=== PATIENT | male | born 1955 | race Caucasian/White ===

== ENCOUNTER 2018-05-07 06:27 | Day surgery (SDC) | payer OTHER ==
[~2018-05-07] VITALS: Ht 175.3 cm; Wt 81.6 kg
[~2018-05-07 06:27] MED LIST: ASPI-630 PO; BUPIVAC MPF-EPI 0.5%-1:200000 30 ML VIAL. ONE; DOCU-109 PO; LISI10TA2 PO; TAMS0.4C97 PO
[2018-05-07] MEDS ORDERED: IV RINGERS,LACTATED 1000ML 1,000 ML IV SCH (07:00)
[2018-05-07] MEDS ORDERED: DESFLURANE 61 TO 120 MINUTES IH ONE (07:58)
[2018-05-07] MEDS ORDERED: ROCURONIUM 50 MG/5 ML VIAL. ONE (07:58)
[2018-05-07] MEDS ORDERED: fentaNYL PF VIAL 100 MCG/2 ML VIAL ONE (07:58)
[2018-05-07] MEDS ORDERED: PROPOFOL 20 ML IV ONE ×2 (08:02→09:28)
[2018-05-07] MEDS ORDERED: ONDANSETRON PF 4 MG/2 ML VIAL. ONE ×2 (08:02→08:07)
[2018-05-07] MEDS ORDERED: DEXAMETHASONE SOD PHOS 20 MG/5 ML VIAL. ONE (08:02)
[2018-05-07] MEDS ORDERED: KETOROLAC 30 MG/ML INJ FOR OR. INJ ONE (08:20)
[2018-05-07] MEDS ORDERED: NEOSTIGMINE METHYLSULFATE 5 MG/5 ML SYRINGE. ONE (08:35)
[2018-05-07] MEDS ORDERED: GLYCOPYRROLATE 1 MG/5 ML VIAL. ONE (08:35)
[2018-05-07] MEDS ORDERED: LIDOCAINE 1% PF 5 ML VIAL. ONE (09:33)
--- NOTE | 2018-05-07 09:36 | PDOC4 ---
Operative Note Operative Note Date: 05/07/2018 Preoperative diagnosis: Left inguinal hernia possible right Postoperative diagnosis: Bilateral inguinal hernias Procedure: Robotic-assisted laparoscopic bilateral inguinal hernia repair with mesh Surgeon: Evelio Specimen: None Dictation: Patient is a 62-year-old male is complained of a bulge on the left side on exam there was some concern for right side hernia also he does describe some pain bilaterally procedure of robotic-assisted laparoscopic inguinal hernia repair with mesh was explained to the patient detail was benefits were also discussed including bleeding infection injury to intra-abdominal contents possibly necessitating further or open operations alternatives to this procedure also discussed with patient who seemed understanding gave both verbal and written consent had procedure performed. Patient was taken to the operating room placed in supine position general anesthesia was initiated once patient was asleep and intubated is placed in low lithotomy positioning and his abdomen was prepped and draped usual sterile fashion using ChloraPrep and area just above the umbilicus was injected with quarter percent Marcaine with epinephrine incision was made lead blade scalpel varies needle was placed within the abdomen creating pneumoperitoneum once this complete 8 mm da Zi port was placed and a da Zi camera was placed within the abdomen which was inspected was noted that there was a left inguinal hernia as well as a right inguinal hernia. 2 more da Zi ports were placed one in the left mid abdomen and one in the right mid abdomen under direct visualization the da Zi robot was brought in and docked all ports and the surgeon went to the robotic console. Using grasper and Endo Elza scissors the peritoneum was opened on the left side a window was propagated and the hernia contents were reduced along with the sac. A 3-D max Bard mesh for the left inguinal hernia was placed over the hernia defect and the peritoneum was then closed over the mesh with a running 20V lock suture. Similarly on the right side the perineum was opened and reduced along with the hernia contents a Bard 3-D max mesh for the right side was placed and the peritoneum was again closed with 20V lock running suture. At the completion the pneumoperitoneum was reduced all ports removed the fascial defect at the umbilicus closed [id number] 0 Vicryl suture and the skin was approximate all port sites 4 septic Monocryl mass all Steri-Strips and Band- Aids were applied as dressings. Patient was waken expanded in the operative room taken to recovery in stable condition all sponge instrument needle counts listed as correct estimated blood loss 5 mL ROBIN LAU MD May 07, 2018 09:36
--- NOTE | 2018-05-07 09:37 | DISCH ---
DISCHARGE INSTRUCTIONS Condition on Discharge Condition on Discharge: Stable Activity After Discharge Activity Instructions for Disc: Avoid exertion Other activity instructions: no lifting more than 20 pounds for 2 weeks Diet after Discharge Diet after Discharge: Regular Wound Incision Care Other wound/incision instructi: May shower in 24 hours removed top dressing at that time Contacting the DRNikki after DC Call your doctor for: If your condition worsens Follow-Up Follow up with: Dr. Lau in 2 weeks ROBIN LAU MD May 07, 2018 09:36
[2018-05-07] MEDS ORDERED: HYDR-971 PO (09:39)
[2018-05-07] MEDS ORDERED: HYDROcodone/APAP 5/325MG 1 TAB TABLET PO ONE (10:30)
[2018-05-07 10:44] VITALS: BP 140/73
== END 2018-05-07 11:01 | disposition home or self-care (01) ==
LOC: SURG 06:27 → EEVIPCON 08:30 → SURG 11:01
PROVIDERS: ATTEND Surgery
DX: K40.20 Bilateral inguinal hernia, without obstruction or gangrene, not specified as recurrent (principal); E78.00 Pure hypercholesterolemia, unspecified; I10 Essential (primary) hypertension; Z79.899 Other long term (current) drug therapy
CPT/HCPCS: 49650; A7015; C1781; J0690; J1100; J1885; J2405; J2704; J2710; J3010; J3490; J7120

== ENCOUNTER 2018-05-25 23:12 | Inpatient (IN) | payer OTHER ==
[~2018-05-25] VITALS: Ht 172.7 cm; Wt 80.3 kg
[~2018-05-25 23:12] MED LIST changes: -BUPIVAC MPF-EPI 0.5%-1:200000 30 ML VIAL. ONE; +HYDR-971 PO
--- NOTE | 2018-05-25 23:28 | PHYS DOC ---
Past Medical History Past Medical History Some personality disorder Adult General Chief Complaint Chief Complaint: ALTERED MENTAL STATUS HPI HPI Patient is a 62 year old inmate arriving to the ED via EMS due to unresponsiveness. He was reported to be fine 1 minute but then became unconscious the next which prompted an EKG to be taken. The rotation red lateral infarct, and a heart attack was suspected by the team which prompted the EMS call. EMS reports that the EKG did not show any ST elevation, however. EMS reports that the patient was able to squeeze with hands, and say a few words. This also reports that the patient has some sort of personality disorder , but the specific diagnosis is unknown at this time. Review of Systems Review of Systems Constitutional: Denies fever or chills [] Eyes: Denies change in visual acuity, redness, or eye pain [] HENT: Denies nasal congestion or sore throat [] Respiratory: Denies cough or shortness of breath [] Cardiovascular: No additional information not addressed in HPI [] GI: Denies abdominal pain, nausea, vomiting, bloody stools or diarrhea [] : Denies dysuria or hematuria [] Musculoskeletal: Denies back pain or joint pain [] Integument: Denies rash or skin lesions [] Neurologic: Denies headache, focal weakness or sensory changes [] Endocrine: Denies polyuria or polydipsia [] Complete systems were reviewed and found to be within normal limits, except as documented in this note. Current Medications Current Medications Allergies Allergies Allergies Coded Allergies Type Severity Reaction Last Updated Verified No Known Drug Allergies 05/07/18 No Physical Exam Physical Exam Constitutional: Well developed, well nourished, no acute distress, non-toxic appearance. [] HENT: Normocephalic, atraumatic, bilateral external ears normal, oropharynx moist, no oral exudates, nose normal. [] Eyes: PERRLA, EOMI, conjunctiva normal, no discharge. [] Neck: Normal range of motion, no tenderness, supple, no stridor. [] Cardiovascular:Heart rate regular rhythm, no murmur [] Lungs & Thorax: Bilateral breath sounds clear to auscultation [] Abdomen: Bowel sounds normal, soft, no tenderness, no masses, no pulsatile masses. [] Skin: Warm, dry, no erythema, no rash. [] Back: No tenderness, no CVA tenderness. [] Extremities: No tenderness, no cyanosis, no clubbing, ROM intact, no edema. [] Neurologic: Alert and oriented X 3, normal motor function, normal sensory function, no focal deficits noted. [] Psychologic: Affect normal, judgement normal, mood normal. [] Current Patient Data Vital Signs Vital Signs Date Time Temp Pulse Resp B/P (MAP) Pulse Ox O2 Delivery O2 Flow Rate FiO2 05/25/18 23:12 98.7 82 22 178/85 (116) 98 Room Air 98.7 Lab Values Laboratory Tests Test 05/25/18 23:25 White Blood Count 9.9 x10^3/uL (4.0-11.0) Red Blood Count 4.04 x10^6/uL (4.30-5.70) L Hemoglobin 12.9 g/dL (13.0-17.5) L Hematocrit 36.5 % (39.0-53.0) L Mean Corpuscular Volume 90 fL (79-100) Mean Corpuscular Hemoglobin 32 pg (25-35) Mean Corpuscular Hemoglobin Concent 35 g/dL (31-37) Red Cell Distribution Width 13.0 % (11.5-14.5) Platelet Count 236 x10^3/uL (140-400) Neutrophils (%) (Auto) 86 % (31-73) H Lymphocytes (%) (Auto) 9 % (24-48) L Monocytes (%) (Auto) 5 % (0-9) Eosinophils (%) (Auto) 0 % (0-3) Basophils (%) (Auto) 0 % (0-3) Neutrophils # (Auto) 8.5 x10^3uL (1.8-7.7) H Lymphocytes # (Auto) 0.9 x10^3/uL (1.0-4.8) L Monocytes # (Auto) 0.5 x10^3/uL (0.0-1.1) Eosinophils # (Auto) 0.0 x10^3/uL (0.0-0.7) Basophils # (Auto) 0.0 x10^3/uL (0.0-0.2) Segmented Neutrophils % 84 % (35-66) H Lymphocytes % 11 % (24-48) L Monocytes % 5 % (0-10) Platelet Estimate Adequate (ADEQUATE) Prothrombin Time 14.1 SEC (11.7-14.0) H Prothrombin Time INR 1.1 (0.8-1.1) PTT 30 SEC (24-38) Sodium Level 138 mmol/L (136-145) Potassium Level 4.1 mmol/L (3.5-5.1) Chloride Level 102 mmol/L (98-107) Carbon Dioxide Level 26 mmol/L (21-32) Anion Gap 10 (6-14) Blood Urea Nitrogen 20 mg/dL (8-26) Creatinine 1.0 mg/dL (0.7-1.3) Estimated GFR (Cockcroft-Gault) 75.7 BUN/Creatinine Ratio 20 (6-20) Glucose Level 145 mg/dL (70-99) H Lactic Acid Level 1.8 mmol/L (0.4-2.0) Calcium Level 9.1 mg/dL (8.5-10.1) Magnesium Level 1.6 mg/dL (1.8-2.4) L Total Bilirubin 0.7 mg/dL (0.2-1.0) Aspartate Amino Transferase (AST) 11 U/L (15-37) L Alanine Aminotransferase (ALT) 19 U/L (16-63) Alkaline Phosphatase 83 U/L (46-116) Ammonia 22 mcmol/L (11-34) Creatine Kinase 76 U/L (39-308) Creatine Kinase MB (Mass) 0.9 ng/mL (0.0-3.6) Creatine Kinase MB Relative Index 1.2 % (0-4) Troponin I Quantitative < 0.017 ng/mL (0.000-0.055) Total Protein 7.1 g/dL (6.4-8.2) Albumin 3.6 g/dL (3.4-5.0) Albumin/Globulin Ratio 1.0 (1.0-1.7) Ethyl Alcohol Level < 10 mg/dL (0-10) Laboratory Tests 05/25/18 23:25 Laboratory Tests 05/25/18 23:25 EKG EKG [] Radiology/Procedures Radiology/Procedures [] Course & Med Decision Making Course & Med Decision Making 2024: 62-year-old patient arriving from [facility] by EMS to unresponsiveness from the emergency clinic of [facility]. Patient noted to have altered mental status. Blood work drawn, EKG, and head CT ordered. EKG was unremarkable. 2331: CT revealed acute right frontotemporal subdural hematoma causing midline shift. Patient still altered. Decision to intubate with RSI was made. Intubation completed successfully without complications. 0055: Dr. Grady contacted for neurosurgery. Atilio Disclaimer Dragon Disclaimer This electronic medical record was generated, in whole or in part, using a voice recognition dictation system. Intubation Intubation : Intubation Method: orotracheal Tube Size (cm): 8.0 Breath Sounds after Intubation: equal Intubation Complications: no complications Post Intubation Xray: Yes Progress Etomidate 20mg, Rocuronium 50mg, direct laryngoscopy performed with Katz #3 by the ED physician under emergent consent. Hand hygiene utilized. 8.0 ET tube placed 20cm at teeth, positive CO2 color change at all breath sounds auscultated. CXR confirmed appropriate placement. Departure Departure Impression: Primary Impression: Subdural hematoma, acute Disposition: ADMITTED INPATIENT Admitting Physician: George Thorpe Condition: CRITICAL Referrals: NON,STAFF (PCP) NIHSS Stroke Scale NIH Stroke Scale: NIH Stroke Scale Response (Comments) Value Level of Consciousness: 2 Requires stimulation 2 LOC Questions: 2 Answers neither correct 2 LOC Commands: 1 Performs one task 1 Best Gaze: 0 Normal 0 Visual: 0 No visual loss 0 Facial Palsy: 0 Normal, symmetrical 0 Motor - Left Arm 1 Drifts, but can hold 1 Motor - Right Arm 3 Limb falls 3 Motor - Left Leg 3 Limb falls 3 Motor: Right Leg 3 Limb falls 3 Best Language: 3 Mute 3 Dysathria: 3 Intubated 0 Total 18 Critical Care Time Critical care time was 30 minutes which includes time at bedside, spent in discussion of patient's care with specialists and/or family members, with interpretation of laboratory and/or radiological studies and is exclusive of procedures. NIKKI QUACH DO May 25, 2018 23:28
[2018-05-25 23:54] LABS: BASO % 0 % (0-3); EOS % 0 % (0-3); HEMATOCRIT 36.5 % (39.0-53.0); HEMOGLOBIN 12.9 g/dL (13.0-17.5); LYMPH # 0.9 x10^3/uL (1.0-4.8); LYMPH % 9 % (24-48); MEAN CORPUSCULAR HEMOGLOBIN 32 pg (25-35); MEAN CORPUSCULAR HGB CONC 35 g/dL (31-37); MEAN CORPUSCULAR VOLUME 90 fL (79-100); MONO # 0.5 x10^3/uL (0.0-1.1); MONO % 5 % (0-9); NEUT # 8.5 x10^3uL (1.8-7.7); NEUT % 86 % (31-73); PLATELET COUNT 236 x10^3/uL (140-400); RED BLOOD COUNT 4.04 x10^6/uL (4.30-5.70); WHITE BLOOD COUNT 9.9 x10^3/uL (4.0-11.0)
[2018-05-25 23:56] LABS: PROTHROMBIN TIME PATIENT 14.1 SEC (11.7-14.0)
[2018-05-25 23:58] LABS: CALCIUM 9.1 mg/dL (8.5-10.1); GFR 75.7; POTASSIUM 4.1 mmol/L (3.5-5.1)
[2018-05-26] VITALS (22 sets, daily range): BP systolic 97–172; BP diastolic 50–80
[2018-05-26 00:03] LABS: ALBUMIN 3.6 g/dL (3.4-5.0); MAGNESIUM 1.6 mg/dL (1.8-2.4); TOTAL BILIRUBIN 0.7 mg/dL (0.2-1.0); TOTAL PROTEIN 7.1 g/dL (6.4-8.2)
[2018-05-26] MEDS ORDERED: BUPIVAC MPF-EPI 0.5%-1:200000 30 ML VIAL. ONE (00:13)
[2018-05-26] MEDS ORDERED: SURGICEL HEMOSTAT 4X8 EACH. ONE (00:13)
[2018-05-26] MEDS ORDERED: GELATIN SPONGE SIZE 100. ONE (00:13)
[2018-05-26] MEDS ORDERED: MANNITOL 25% 12.5 G/50 ML VIAL FOR OR. ONE ×2 (00:13→00:20)
[2018-05-26] MEDS ORDERED: THROMBIN TOPICAL 20,000 UNIT SPRAY.SYRN KIT TP ONE (00:14)
--- NOTE | 2018-05-26 00:15 | RAD ---
CT head without contrast HISTORY: Altered mental status, found unresponsive Axial images of the head were obtained without contrast FINDINGS: There is a moderate size acute subdural hematoma on the right lateral to the temporal and frontal lobes. It measures as great as 1.6 centers in thickness and results in significant 1.5 cm right to left midline shift. There is no hydrocephalus. There is no hypoattenuation to suggest acute ischemia. There is opacification of the left maxillary sinus and fluid in the right maxillary sinus and left ethmoid air cells and sphenoid sinus. There is motion artifact. IMPRESSION: 1. Acute right-sided subdural hematoma with [id number] midline shift. 2. Moderate sinus disease. These results were called to Dr. QUACH and verified by read back at the time of dictation. Electronically signed by: Guero Gadruno III, MD (05/26/2018 12:13 AM) [facility]
[2018-05-26] MEDS ORDERED: ATOR40TA59 PO (00:20)
[2018-05-26] MEDS ORDERED: PROPOFOL 50 ML IV ONE (00:27)
[2018-05-26] MEDS ORDERED: ETOMIDATE 20 MG/10 ML VIAL. IV ONE (00:30)
[2018-05-26] MEDS ORDERED: ROCURONIUM 50 MG/5 ML VIAL. IV ONE (00:30)
[2018-05-26] MEDS: PROPOFOL 100 ML IV PRN ×3 (00:30→19:30)
[2018-05-26] MEDS ORDERED: LABETALOL 20 MG/4 ML DISP.SYRIN. IVP ONE ×5 (00:30→03:11)
[2018-05-26 00:40] LABS: BILIRUBIN,URINE NEGATIVE (NEG); CLARITY,URINE CLEAR; COLOR,URINE YELLOW; NITRITE,URINE NEGATIVE (NEG); PH,URINE 6.5; PROTEIN,URINE NEGATIVE (NEG-TRACE); UROBILINOGEN,URINE 0.2 mg/dL (0.2 mg/dL)
[2018-05-26 00:46] LABS: BARBITURATES NEG (NEG); BENZODIAZEPINES NEG (NEG); CANNABINOIDS NEG (NEG); COCAINE NEG (NEG); METHADONE NEG (NEG); OPIATES NEG (NEG); PHENCYCLIDINE NEG (NEG)
[2018-05-26 00:53] LABS: BACTERIA,URINE 0 /HPF (0-FEW); RBC,URINE 0 /HPF (0-2); SQUAMOUS EPITHELIAL CELL,UR OCC /LPF; WBC,URINE OCC /HPF (0-4)
[2018-05-26 00:54] LABS: AMPHETAMINE/METHAMPHETAMINE NEG (NEG)
[2018-05-26 01:09] LABS: % LYMPHS 11 % (24-48); % MONOS 5 % (0-10); % SEGS 84 % (35-66)
[2018-05-26 01:10] LABS: PLT ESTIMATE ADEQUATE (ADEQUATE)
--- NOTE | 2018-05-26 01:10 | RAD ---
CT C-Spine without contrast: Clinical History: SUBDURAL HEMORRHAGE Technique: Axial helical images of the cervical spine were obtained without contrast, axial coronal and sagittal reconstruction was performed. Findings: There is no loss of vertebral body stature. There is no prevertebral soft tissue swelling. The vertebral bodies are well aligned. The head is turned to the right. Otherwise the C1-C2 relationship is normal. The visualized osseous structures appear normal. Evaluation of the central canal is limited without contrast. There is multiple posterior disc bulges resulting in flattening of the thecal sac. There does not appear to be gross flattening of the cervical cord. There is moderate narrowing of multiple neuroforamen. Impression: No acute findings. Clinical correlation suggested. PQRS Compliance Statement: One or more of the following individualized dose reduction techniques were utilized for this examination: 1. Automated exposure control 2. Adjustment of the mA and/or kV according to patient size 3. Use of iterative reconstruction technique Electronically signed by: Guero Garduno III, MD (05/26/2018 1:07 AM) [facility]
[2018-05-26] MEDS ORDERED: ROCURONIUM 50 MG/5 ML VIAL. ONE ×2 (01:16→01:58)
[2018-05-26] MEDS ORDERED: fentaNYL PF VIAL 100 MCG/2 ML VIAL ONE ×2 (01:17→03:13)
[2018-05-26] MEDS ORDERED: SEVOFLURANE 61 TO 120 MINUTES. IH ONE (01:58)
[2018-05-26] MEDS ORDERED: BACITRACIN 50,000 UNIT in IV NORMAL SALINE 1000ML BAG 1,000 ML IRR ONE (02:00)
[2018-05-26] MEDS ORDERED: ceFAZolin SODIUM 1 GM VIAL ONE ×2 (02:01)
[2018-05-26] MEDS ORDERED: DEXAMETHASONE SOD PHOS 20 MG/5 ML VIAL. ONE (03:11)
[2018-05-26] MEDS ORDERED: ONDANSETRON PF 4 MG/2 ML VIAL. ONE (03:11)
[2018-05-26 03:53] LABS: BASE EXCESS COOX 0 mmol/L (-3-3); HCO3 COOX 23 mmol/L (21-28); METHEMOGLOBIN 0.3 % (0.0-1.9); OXYHEMOGLOBIN 98.5 %; PCO2 COOX 31 mmHg (35-46); PO2 COOX 491 mmHg (65-108); SAT O2 COOX 99 % (92-99)
--- NOTE | 2018-05-26 04:45 | OP ---
DATE OF SURGERY: 05/26/2018 PREOPERATIVE DIAGNOSIS: Right frontotemporal parietal subacute subdural hematoma with right to left shift and deteriorating level of consciousness. POSTOPERATIVE DIAGNOSIS: Right frontotemporal parietal subacute subdural hematoma with right to left shift and deteriorating level of consciousness. OPERATION PERFORMED: Emergent right central craniotomy with evacuation of subdural hematoma and placement of subdural drain. SURGEON:Elmer Cummings M.D. OBSTETRICS TECHNICIAN: The operation was done with the assistance of CLAUDIA Tolentino who assisted with the exposure, the removal of subdural as well as the placement of drain and closure. OPERATIVE INDICATIONS: The patient is a 62-year-old man who was found unconscious in the Emergency Room. He was initially saying a few words per the physician and nurse, but then rapidly deteriorated and required intubation. On a CT scan of the head, there was a large right frontotemporal parietal subdural hematoma with a significant right to left shift and I recommended emergent craniotomy with evacuation. DESCRIPTION OF PROCEDURE: Following general endotracheal anesthesia, the patient was positioned on the operating room table with a roll beneath his right shoulder. His head was turned to the left bringing the right frontoparietal region uppermost. He was clipped, prepped and draped in standard fashion. WILLIE hose and AV impulse boots were applied for DVT prophylaxis. Ancef 2 g was given less than 1 hour prior to initiation of the surgery. A linear incision was made extending anterior and superior to the ear and extending toward the vertex. The Kary clips were used along the skin edge and the temporalis muscle and fascia were incised as well as periosteum, which were reflected and self-retaining retractor was placed. Two una holes were placed and the craniotome was then used to develop a flap, which was removed from the field. The dura was opened in a cruciate fashion. There was a spontaneous regression of dark viscous subdural fluid. There were a couple of clots, which I teased back and removed and beneath one of them, there was an active hemorrhaging and I did coagulate this is focal area judiciously with the Bovie. I irrigated copiously with warm saline and as I worked, the effluent became clearer and cleared and the brain rapidly moved back from a significantly shifted and depressed position back to virtually in contact with the underlying dura. Following this, I closed the dura with interrupted 4-0 Nurolon. The bone flap was modified to accommodate a drain, which was placed and brought through a separate stab incision. During this time, the flap was replaced and secured with microplates and the wound was copiously irrigated. I did refill the subdural space with saline as I worked. I then closed the temporalis fascia and muscle followed by the galea and subcutaneous tissue followed by the skin closed with skin jessica. The patient was kept intubated and taken to the Intensive Care Unit in stable condition with the surgery went quite well. ELMER CUMMINGS MD DR: SENDY/marina JOB#: [id number] / [id number] TORI
[2018-05-26 06:50] LABS: HEMATOCRIT 35.8 % (39.0-53.0); HEMOGLOBIN 12.8 g/dL (13.0-17.5); RED BLOOD COUNT 3.96 x10^6/uL (4.30-5.70); RED CELL DISTRIBUTION WIDTH 12.8 % (11.5-14.5); WHITE BLOOD COUNT 8.1 x10^3/uL (4.0-11.0)
[2018-05-26 07:03] LABS: ALBUMIN 3.2 g/dL (3.4-5.0); ALBUMIN/GLOBULIN RATIO 0.9 (1.0-1.7); GFR 75.7; MAGNESIUM 1.8 mg/dL (1.8-2.4); POTASSIUM 3.8 mmol/L (3.5-5.1); TOTAL BILIRUBIN 0.6 mg/dL (0.2-1.0); TOTAL PROTEIN 6.6 g/dL (6.4-8.2)
--- NOTE | 2018-05-26 07:18 | EKG ---
[facility] [address] [place] [address] Test Date: 2018-05-25 Test Time: 23:19:17 Pat Name: ANA MARÍA LAW Department: Room: 111 1 Gender: M Rehab Technician: : 1955 Requested By: NIKKI QUACH Order Number: [id number] Reading MD: Louie Ceballos Measurements Intervals [place] Rate: 68 P: 40 [place]: 156 QRS: 51 QRSD: 76 T: 34 QT: 364 QTc: 387 Interpretive Statements SINUS RHYTHM NORMAL ECG RI6.01 No previous ECG available for comparison Electronically Signed On 05-29-2018 10:15:35 CDT by Louie Ceballos
--- NOTE | 2018-05-26 07:29 | EKG ---
[facility] [address] [place] [address] Test Date: 2018-05-25 Test Time: 23:17:24 Pat Name: ANA MARÍA LAW Department: Room: 111 1 Gender: M Editorial Director: : 1955 Requested By: NIKKI QUACH Order Number: [id number] Reading MD: Louie Ceballos Measurements Intervals [place] Rate: 69 P: 39 [place]: 152 QRS: 64 QRSD: 74 T: 46 QT: 356 QTc: 383 Interpretive Statements SINUS RHYTHM NO SPECIFIC ECG ABNORMALITIES RI6.01 No previous ECG available for comparison Electronically Signed On 05-29-2018 10:15:30 CDT by Louie Ceballos
--- NOTE | 2018-05-26 07:40 | RAD ---
PROCEDURE: PORTABLE CHEST 1V CLINICAL INDICATION: altered mental status COMPARISON: None FINDINGS: No pneumothorax identified. Cardiac and mediastinal contours unremarkable. No pulmonary consolidation or acute airspace disease. No acute osseous abnormalities identified. IMPRESSION: No pulmonary consolidation or acute airspace disease. Electronically signed by: Dakota Longoria DO (05/26/2018 7:37 AM) [facility]
--- NOTE | 2018-05-26 07:42 | RAD ---
PROCEDURE: CHEST AP ONLY CLINICAL INDICATION: POST INTUBATION COMPARISON: 05/25/2018 FINDINGS: Interval placement of ET tube with its tip approximately 7 cm above the level of lorin and is in optimal position. No pneumothorax identified. Cardiac and mediastinal contours unremarkable. No pulmonary consolidation or acute airspace disease. No acute osseous abnormalities identified. IMPRESSION: No pulmonary consolidation or acute airspace disease. Electronically signed by: Dakota Longoria DO (05/26/2018 7:39 AM) [facility]
[2018-05-26 07:54] LABS: BASE EXCESS ABG 1 mmol/L (-3-3); HCO3 ABG 22 mmol/L (21-28); PO2 ABG 108 mmHg (65-108); SAT O2 ABG 98 % (92-99)
[2018-05-26] MEDS: CHLORHEXIDINE 0.12% 15 ML MOUTHWASH. MM SCH ×2 (08:43→21:00)
[2018-05-26] MEDS ORDERED: IV RINGERS,LACTATED 1000ML 1,000 ML IV SCH (10:00)
--- NOTE | 2018-05-26 10:50 | PDOC ---
PROGRESS NOTES Subjective Subjective sedated on vent Objective Objective Vital Signs Date Time Temp Pulse Resp B/P (MAP) Pulse Ox O2 Delivery O2 Flow Rate FiO2 05/26/18 10:01 68 20 122/51 (74) 100 Ventilator 05/26/18 07:00 98.9 98.9 Intake and Output 05/26/18 07:00 Output Total 2375 ml Balance -2375 ml Output Urine Total 2350 ml Drainage Total 25 ml Physical Exam General: No acute distress, Other (sedated) Skin: Other (dressing C,D,I. drain in place) Assessment Assessment Problems Medical Problems: (1) Subdural hematoma, acute Status: Acute Plan Plan of Care s/p evacuation of SDH work towards extubation per Dr. Gallardo SCDS d/w RN and Dr. Thorpe Comment Review of Relevant I have reviewed the following items cesar (where applicable) has been applied. Labs Laboratory Tests Test 05/25/18 23:25 05/26/18 00:32 05/26/18 03:52 05/26/18 06:15 White Blood Count 9.9 x10^3/uL (4.0-11.0) 8.1 x10^3/uL (4.0-11.0) Red Blood Count 4.04 x10^6/uL (4.30-5.70) 3.96 x10^6/uL (4.30-5.70) Hemoglobin 12.9 g/dL (13.0-17.5) 12.8 g/dL (13.0-17.5) Hematocrit 36.5 % (39.0-53.0) 35.8 % (39.0-53.0) Mean Corpuscular Volume 90 fL (79-100) 90 fL (79-100) Mean Corpuscular Hemoglobin 32 pg (25-35) 32 pg (25-35) Mean Corpuscular Hemoglobin Concent 35 g/dL (31-37) 36 g/dL (31-37) Red Cell Distribution Width 13.0 % (11.5-14.5) 12.8 % (11.5-14.5) Platelet Count 236 x10^3/uL (140-400) 211 x10^3/uL (140-400) Neutrophils (%) (Auto) 86 % (31-73) Lymphocytes (%) (Auto) 9 % (24-48) Monocytes (%) (Auto) 5 % (0-9) Eosinophils (%) (Auto) 0 % (0-3) Basophils (%) (Auto) 0 % (0-3) Neutrophils # (Auto) 8.5 x10^3uL (1.8-7.7) Lymphocytes # (Auto) 0.9 x10^3/uL (1.0-4.8) Monocytes # (Auto) 0.5 x10^3/uL (0.0-1.1) Eosinophils # (Auto) 0.0 x10^3/uL (0.0-0.7) Basophils # (Auto) 0.0 x10^3/uL (0.0-0.2) Segmented Neutrophils % 84 % (35-66) Lymphocytes % 11 % (24-48) Monocytes % 5 % (0-10) Platelet Estimate Adequate (ADEQUATE) Prothrombin Time 14.1 SEC (11.7-14.0) Prothromb Time International Ratio 1.1 (0.8-1.1) Activated Partial Thromboplast Time 30 SEC (24-38) Sodium Level 138 mmol/L (136-145) 137 mmol/L (136-145) Potassium Level 4.1 mmol/L (3.5-5.1) 3.8 mmol/L (3.5-5.1) Chloride Level 102 mmol/L (98-107) 104 mmol/L (98-107) Carbon Dioxide Level 26 mmol/L (21-32) 22 mmol/L (21-32) Anion Gap 10 (6-14) 11 (6-14) Blood Urea Nitrogen 20 mg/dL (8-26) 18 mg/dL (8-26) Creatinine 1.0 mg/dL (0.7-1.3) 1.0 mg/dL (0.7-1.3) Estimated GFR (Cockcroft-Gault) 75.7 75.7 BUN/Creatinine Ratio 20 (6-20) 18 (6-20) Glucose Level 145 mg/dL (70-99) 154 mg/dL (70-99) Lactic Acid Level 1.8 mmol/L (0.4-2.0) Calcium Level 9.1 mg/dL (8.5-10.1) 9.0 mg/dL (8.5-10.1) Magnesium Level 1.6 mg/dL (1.8-2.4) 1.8 mg/dL (1.8-2.4) Total Bilirubin 0.7 mg/dL (0.2-1.0) 0.6 mg/dL (0.2-1.0) Aspartate Amino Transf (AST/SGOT) 11 U/L (15-37) 14 U/L (15-37) Alanine Aminotransferase (ALT/SGPT) 19 U/L (16-63) 15 U/L (16-63) Alkaline Phosphatase 83 U/L (46-116) 72 U/L (46-116) Ammonia 22 mcmol/L (11-34) Creatine Kinase 76 U/L (39-308) Creatine Kinase MB (Mass) 0.9 ng/mL (0.0-3.6) Creatine Kinase MB Relative Index 1.2 % (0-4) Troponin I Quantitative < 0.017 ng/mL (0.000-0.055) Total Protein 7.1 g/dL (6.4-8.2) 6.6 g/dL (6.4-8.2) Albumin 3.6 g/dL (3.4-5.0) 3.2 g/dL (3.4-5.0) Albumin/Globulin Ratio 1.0 (1.0-1.7) 0.9 (1.0-1.7) Ethyl Alcohol Level < 10 mg/dL (0-10) Urine Collection Type U cath Urine Color Yellow Urine Clarity Clear Urine pH 6.5 Urine Specific [place] 1.025 Urine Protein Negative mg/dL (NEG-TRACE) Urine Glucose (UA) Negative mg/dL (NEG) Urine Ketones (Stick) 15 mg/dL (NEG) Urine Blood Negative (NEG) Urine Nitrite Negative (NEG) Urine Bilirubin Negative (NEG) Urine Urobilinogen Dipstick 0.2 mg/dL (0.2 mg/dL) Urine Leukocyte Esterase Negative (NEG) Urine RBC 0 /HPF (0-2) Urine WBC Occ /HPF (0-4) Urine Squamous Epithelial Cells Occ /LPF Urine Bacteria 0 /HPF (0-FEW) Urine Mucus Slight /LPF Urine Opiates Screen Neg (NEG) Urine Methadone Screen Neg (NEG) Urine Barbiturates Neg (NEG) Urine Phencyclidine Screen Neg (NEG) Urine Amphetamine/Methamphetamine Neg (NEG) Urine Benzodiazepines Screen Neg (NEG) Urine Cocaine Screen Neg (NEG) Urine Cannabinoids Screen Neg (NEG) Urine Ethyl Alcohol Neg (NEG) O2 Saturation 99 % (92-99) Arterial Blood pH 7.49 (7.35-7.45) Arterial Blood pCO2 at Patient Temp 31 mmHg (35-46) Arterial Blood pO2 at Patient Temp 491 mmHg (65-108) Arterial Blood HCO3 23 mmol/L (21-28) Arterial Blood Base Excess 0 mmol/L (-3-3) Oxyhemoglobin 98.5 % Methemoglobin 0.3 % (0.0-1.9) Carbon Monoxide, Quantitative 0.3 % (0.0-1.9) FiO2 100 Test 05/26/18 06:23 Glucose (Fingerstick) 155 mg/dL (70-99) Laboratory Tests Test 05/25/18 23:25 05/26/18 00:32 05/26/18 03:52 05/26/18 06:15 White Blood Count 9.9 x10^3/uL (4.0-11.0) 8.1 x10^3/uL (4.0-11.0) Red Blood Count 4.04 x10^6/uL (4.30-5.70) 3.96 x10^6/uL (4.30-5.70) Hemoglobin 12.9 g/dL (13.0-17.5) 12.8 g/dL (13.0-17.5) Hematocrit 36.5 % (39.0-53.0) 35.8 % (39.0-53.0) Mean Corpuscular Volume 90 fL (79-100) 90 fL (79-100) Mean Corpuscular Hemoglobin 32 pg (25-35) 32 pg (25-35) Mean Corpuscular Hemoglobin Concent 35 g/dL (31-37) 36 g/dL (31-37) Red Cell Distribution Width 13.0 % (11.5-14.5) 12.8 % (11.5-14.5) Platelet Count 236 x10^3/uL (140-400) 211 x10^3/uL (140-400) Neutrophils (%) (Auto) 86 % (31-73) Lymphocytes (%) (Auto) 9 % (24-48) Monocytes (%) (Auto) 5 % (0-9) Eosinophils (%) (Auto) 0 % (0-3) Basophils (%) (Auto) 0 % (0-3) Neutrophils # (Auto) 8.5 x10^3uL (1.8-7.7) Lymphocytes # (Auto) 0.9 x10^3/uL (1.0-4.8) Monocytes # (Auto) 0.5 x10^3/uL (0.0-1.1) Eosinophils # (Auto) 0.0 x10^3/uL (0.0-0.7) Basophils # (Auto) 0.0 x10^3/uL (0.0-0.2) Segmented Neutrophils % 84 % (35-66) Lymphocytes % 11 % (24-48) Monocytes % 5 % (0-10) Platelet Estimate Adequate (ADEQUATE) Prothrombin Time 14.1 SEC (11.7-14.0) Prothromb Time International Ratio 1.1 (0.8-1.1) Activated Partial Thromboplast Time 30 SEC (24-38) Sodium Level 138 mmol/L (136-145) 137 mmol/L (136-145) Potassium Level 4.1 mmol/L (3.5-5.1) 3.8 mmol/L (3.5-5.1) Chloride Level 102 mmol/L (98-107) 104 mmol/L (98-107) Carbon Dioxide Level 26 mmol/L (21-32) 22 mmol/L (21-32) Anion Gap 10 (6-14) 11 (6-14) Blood Urea Nitrogen 20 mg/dL (8-26) 18 mg/dL (8-26) Creatinine 1.0 mg/dL (0.7-1.3) 1.0 mg/dL (0.7-1.3) Estimated GFR (Cockcroft-Gault) 75.7 75.7 BUN/Creatinine Ratio 20 (6-20) 18 (6-20) Glucose Level 145 mg/dL (70-99) 154 mg/dL (70-99) Lactic Acid Level 1.8 mmol/L (0.4-2.0) Calcium Level 9.1 mg/dL (8.5-10.1) 9.0 mg/dL (8.5-10.1) Magnesium Level 1.6 mg/dL (1.8-2.4) 1.8 mg/dL (1.8-2.4) Total Bilirubin 0.7 mg/dL (0.2-1.0) 0.6 mg/dL (0.2-1.0) Aspartate Amino Transf (AST/SGOT) 11 U/L (15-37) 14 U/L (15-37) Alanine Aminotransferase (ALT/SGPT) 19 U/L (16-63) 15 U/L (16-63) Alkaline Phosphatase 83 U/L (46-116) 72 U/L (46-116) Ammonia 22 mcmol/L (11-34) Creatine Kinase 76 U/L (39-308) Creatine Kinase MB (Mass) 0.9 ng/mL (0.0-3.6) Creatine Kinase MB Relative Index 1.2 % (0-4) Troponin I Quantitative < 0.017 ng/mL (0.000-0.055) Total Protein 7.1 g/dL (6.4-8.2) 6.6 g/dL (6.4-8.2) Albumin 3.6 g/dL (3.4-5.0) 3.2 g/dL (3.4-5.0) Albumin/Globulin Ratio 1.0 (1.0-1.7) 0.9 (1.0-1.7) Ethyl Alcohol Level < 10 mg/dL (0-10) Urine Collection Type U cath Urine Color Yellow Urine Clarity Clear Urine pH 6.5 Urine Specific [place] 1.025 Urine Protein Negative mg/dL (NEG-TRACE) Urine Glucose (UA) Negative mg/dL (NEG) Urine Ketones (Stick) 15 mg/dL (NEG) Urine Blood Negative (NEG) Urine Nitrite Negative (NEG) Urine Bilirubin Negative (NEG) Urine Urobilinogen Dipstick 0.2 mg/dL (0.2 mg/dL) Urine Leukocyte Esterase Negative (NEG) Urine RBC 0 /HPF (0-2) Urine WBC Occ /HPF (0-4) Urine Squamous Epithelial Cells Occ /LPF Urine Bacteria 0 /HPF (0-FEW) Urine Mucus Slight /LPF Urine Opiates Screen Neg (NEG) Urine Methadone Screen Neg (NEG) Urine Barbiturates Neg (NEG) Urine Phencyclidine Screen Neg (NEG) Urine Amphetamine/Methamphetamine Neg (NEG) Urine Benzodiazepines Screen Neg (NEG) Urine Cocaine Screen Neg (NEG) Urine Cannabinoids Screen Neg (NEG) Urine Ethyl Alcohol Neg (NEG) O2 Saturation 99 % (92-99) Arterial Blood pH 7.49 (7.35-7.45) Arterial Blood pCO2 at Patient Temp 31 mmHg (35-46) Arterial Blood pO2 at Patient Temp 491 mmHg (65-108) Arterial Blood HCO3 23 mmol/L (21-28) Arterial Blood Base Excess 0 mmol/L (-3-3) Oxyhemoglobin 98.5 % Methemoglobin 0.3 % (0.0-1.9) Carbon Monoxide, Quantitative 0.3 % (0.0-1.9) FiO2 100 Test 05/26/18 06:23 Glucose (Fingerstick) 155 mg/dL (70-99) Medications Current Medications Labetalol HCl (Normodyne Iv Push) 20 mg 1X ONCE IVP ; Start 05/26/18 at 00:30 ; Stop 05/26/18 at 01:35; Status DC Etomidate (Amidate) 20 mg 1X ONCE IV Last administered on 05/26/18at 00:23; Start 05/26/18 at 00:30; Stop 05/26/18 at 00:31; Status DC Rocuronium [place] (Zemuron) 50 mg 1X ONCE IV Last administered on 05/26/18at 00:23; Start 05/26/18 at 00:30; Stop 05/26/18 at 00:31; Status DC Propofol 50 ml @ As Directed STK-MED ONCE IV ; Start 05/26/18 at 00:27; Stop 05/26/18 at 00:28; Status DC Propofol 100 ml @ 0 mls/hr CONT PRN IV PER PROTOCOL Last administered on at 08:43; Start 05/26/18 at 00:30 Chlorhexidine Gluconate (Peridex) 15 ml BID MM Last administered on 05/26/18at 08:43; Start 05/26/18 at 09:00 Labetalol HCl (Normodyne Iv Push) 20 mg 1X ONCE IVP ; Start 05/26/18 at 01:30 ; Stop 05/26/18 at 01:35; Status DC Labetalol HCl (Normodyne Iv Push) 20 mg STK-MED ONCE IVP ; Start 05/26/18 at 01 :02; Stop 05/26/18 at 01:35; Status DC Bacitracin 32953 unit/Sodium Chloride 1,000 ml @ 1,000 mls/hr 1X ONCE IRR ; Start 05/26/18 at 02:00; Stop 05/26/18 at 02:59; Status DC Gelatin (Gelfoam Size 100) 1 each STK-MED ONCE .ROUTE Last administered on at 02:19; Start 05/26/18 at 00:13; Stop 05/26/18 at 01:14; Status DC Bupivacaine HCl/ Epinephrine Bitart (Sensorcain-Mpf Epi 0.5%-1:[id number]) 30 ml STK -MED ONCE .ROUTE Last administered on 05/26/18at 02:19; Start 05/26/18 at 00: 13; Stop 05/26/18 at 01:14; Status DC Mannitol (Mannitol) 12.5 g STK-MED ONCE .ROUTE ; Start 05/26/18 at 00:13; Stop 05/26/18 at 01:14; Status DC Cellulose (Surgicel Hemostat 4x8) 1 each STK-MED ONCE .ROUTE ; Start 05/26/18 at 00:13; Stop 05/26/18 at 01:14; Status DC Thrombin 20,000 unit STK-MED ONCE TP Last administered on 05/26/18at 02:19; Start 05/26/18 at 00:14; Stop 05/26/18 at 01:14; Status DC Rocuronium [place] (Zemuron) 50 mg STK-MED ONCE .ROUTE ; Start 05/26/18 at 01: 16; Stop 05/26/18 at 01:17; Status DC Fentanyl Citrate (Fentanyl 2ml Vial) 100 mcg STK-MED ONCE .ROUTE ; Start at 01:17; Stop 05/26/18 at 01:18; Status DC Mannitol (Mannitol) 12.5 g STK-MED ONCE .ROUTE ; Start 05/26/18 at 00:20; Stop 05/26/18 at 01:20; Status DC Labetalol HCl (Normodyne Iv Push) 5 mg 1X ONCE IVP Last administered on at 01:20; Start 05/26/18 at 02:00; Stop 05/26/18 at 02:01; Status DC Sevoflurane (Ultane) 60 ml STK-MED ONCE IH ; Start 05/26/18 at 01:58; Stop at 01:59; Status DC Rocuronium [place] (Zemuron) 50 mg STK-MED ONCE .ROUTE ; Start 05/26/18 at 01: 58; Stop 05/26/18 at 01:59; Status DC Cefazolin Sodium (Ancef) 1 gm STK-MED ONCE .ROUTE ; Start 05/26/18 at 02:01; Stop 05/26/18 at 02:02; Status DC Cefazolin Sodium (Ancef) 1 gm STK-MED ONCE .ROUTE ; Start 05/26/18 at 02:01; Stop 05/26/18 at 02:02; Status DC Dexamethasone Sodium Phosphate (Decadron) 20 mg STK-MED ONCE .ROUTE ; Start at 03:11; Stop 05/26/18 at 03:12; Status DC Ondansetron HCl (Zofran) 4 mg STK-MED ONCE .ROUTE ; Start 05/26/18 at 03:11; Stop 05/26/18 at 03:12; Status DC Labetalol HCl (Normodyne Iv Push) 20 mg STK-MED ONCE IVP ; Start 05/26/18 at 03 :11; Stop 05/26/18 at 03:12; Status DC Fentanyl Citrate (Fentanyl 2ml Vial) 100 mcg STK-MED ONCE .ROUTE ; Start at 03:13; Stop 05/26/18 at 03:14; Status DC Nicardipine HCl 50 mg/Sodium Chloride 270 ml @ 27 mls/hr CONT PRN IV SEE I/O RECORD Last administered on 05/26/18at 04:51; Start 05/26/18 at 03:45 Cefazolin Sodium/ Dextrose 50 ml @ 100 mls/hr Q8HRS IV Last administered on at 08:43; Start 05/26/18 at 08:30 Ringer's Solution 1,000 ml @ 100 mls/hr Q10H IV Last administered on at 10:14; Start 05/26/18 at 10:00 Active Scripts Active [facility] 5-325 Tablet (Acetaminophen/Hydrocodone Bitart) 1 Each Tablet 1-2 Tab PO Q4-6HRS PRN Reported Atorvastatin Calcium 40 Mg Tablet 1 Tab PO DAILY Aspirin 81 Mg Tab.chew 81 Mg PO DAILY Colace (Docusate Sodium) 100 Mg Capsule 100 Mg PO BID Flomax (Tamsulosin Hcl) 0.4 Mg Cap.er.24h 0.4 Mg PO DAILY Lisinopril 10 Mg Tablet 10 Mg PO DAILY Vitals/I & O Vital Sign - Last 24 Hours 05/25/18 05/25/18 05/25/18 05/26/18 23:12 23:15 23:30 00:15 Temp 98.7 98.7 Pulse 82 84 67 88 Resp 22 20 19 19 B/P (MAP) 178/85 (116) Pulse Ox 98 98 96 98 O2 Delivery Room Air 05/26/18 05/26/18 05/26/18 05/26/18 00:30 00:30 00:45 01:00 Pulse 78 77 74 Resp 19 20 20 Pulse Ox 100 100 100 100 O2 Delivery Ventilator 05/26/18 05/26/18 05/26/18 05/26/18 01:15 01:20 01:25 03:30 Temp 97.8 97.8 Pulse 64 67 67 50 Resp 20 20 20 B/P (MAP) 185/92 108/56 (73) Pulse Ox 100 100 100 O2 Delivery Ventilator 05/26/18 05/26/18 05/26/18 05/26/18 03:45 03:50 04:00 04:00 Pulse 50 68 68 Resp 20 20 B/P (MAP) 138/52 (80) 148/66 (93) 148/66 (93) Pulse Ox 100 100 100 O2 Delivery Ventilator Ventilator Ventilator 05/26/18 05/26/18 05/26/18 05/26/18 05:00 05:40 06:00 07:00 Pulse 68 62 Resp 20 20 B/P (MAP) 156/64 (94) 128/58 (81) 155/62 (93) Pulse Ox 100 100 100 O2 Delivery Ventilator Ventilator Ventilator 05/26/18 05/26/18 05/26/18 05/26/18 07:00 07:41 08:00 08:33 Temp 98.9 98.9 Pulse 65 72 Resp 20 20 B/P (MAP) 134/66 (88) 137/55 (82) Pulse Ox 100 100 100 100 O2 Delivery Ventilator Ventilator Ventilator Ventilator 05/26/18 05/26/18 09:00 10:01 Pulse 76 68 Resp 20 20 B/P (MAP) 148/59 (88) 122/51 (74) Pulse Ox 100 100 O2 Delivery Ventilator Ventilator Intake and Output 05/25/18 05/25/18 05/26/18 15:00 23:00 07:00 Output Total 2375 ml Balance -2375 ml DONAL AUG[employer]E [employer] May 26, 2018 10:49
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
[2018-05-26] MEDS: POTASSIUM CL 20MEQ D5-0.45NACL 1,000 ML IV SCH (11:21)
[2018-05-26 11:29] LABS: FIO2 ABG 40% vent; PCO2 ABG 26 mmHg (35-46)
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
[2018-05-26] MEDS ORDERED: fentaNYL PF VIAL 100 MCG/2 ML VIAL IV PRN (21:45)
[2018-05-27] VITALS (26 sets, daily range): BP systolic 107–163; BP diastolic 46–83
[2018-05-27] MEDS: POTASSIUM CL 20MEQ D5-0.45NACL 1,000 ML IV SCH ×2 (00:03→15:17)
[2018-05-27] MEDS: PROPOFOL 100 ML IV PRN (00:04)
[2018-05-27 06:19] LABS: BASO % 0 % (0-3); EOS % 0 % (0-3); HEMATOCRIT 34.2 % (39.0-53.0); HEMOGLOBIN 12.1 g/dL (13.0-17.5); LYMPH # 1.1 x10^3/uL (1.0-4.8); LYMPH % 10 % (24-48); MEAN CORPUSCULAR HEMOGLOBIN 32 pg (25-35); MEAN CORPUSCULAR HGB CONC 35 g/dL (31-37); MEAN CORPUSCULAR VOLUME 91 fL (79-100); MONO # 0.8 x10^3/uL (0.0-1.1); MONO % 7 % (0-9); NEUT # 9.7 x10^3uL (1.8-7.7); NEUT % 83 % (31-73); PLATELET COUNT 188 x10^3/uL (140-400); RED BLOOD COUNT 3.76 x10^6/uL (4.30-5.70); WHITE BLOOD COUNT 11.7 x10^3/uL (4.0-11.0)
[2018-05-27 06:36] LABS: CREATININE 0.9 mg/dL (0.7-1.3); GFR 85.5
[2018-05-27 08:08] LABS: BASE EXCESS ABG 1 mmol/L (-3-3); HCO3 ABG 24 mmol/L (21-28); PCO2 ABG 32 mmHg (35-46); PO2 ABG 184 mmHg (65-108); SAT O2 ABG 99 % (92-99)
[2018-05-27 08:13] LABS: FIO2 ABG 40
--- NOTE | 2018-05-27 08:19 | RAD ---
Portable chest, 05/27/2018: HISTORY: Respiratory failure Comparison is made to yesterday's study. The ET tube tip lies 6-7 cm above the lorin. An NG tube extends into the stomach. The heart size and pulmonary vascularity are normal. No pulmonary infiltrate is seen. There is no evidence of pleural fluid. IMPRESSION: No acute cardiopulmonary abnormality is detected. Electronically signed by: Mickey Wolfe MD (05/27/2018 8:16 AM) [facility]
[2018-05-27] MEDS: CHLORHEXIDINE 0.12% 15 ML MOUTHWASH. MM SCH (09:00)
--- NOTE | 2018-05-27 12:01 | PDOC ---
PROGRESS NOTES Chief Complaint Chief Complaint Acute respiratory failure secondary to acute subdural hematoma Acute encephalopathy secondary to subdural hematoma Status post right central craniotomy with evacuation of subdural hematoma and placement of subdural drain on 05/26 History of Present Illness History of Present Illness Pt seen and examined in ICU Laying in bed, intubated (AC 12/550/40%/5 PEEP), but alert, eyes open and looking around Discussed with firearms inspector facility officers at bedside Vitals Vitals Vital Signs Date Time Temp Pulse Resp B/P (MAP) Pulse Ox O2 Delivery O2 Flow Rate FiO2 05/27/18 11:21 100 Ventilator 05/27/18 11:00 64 16 155/61 (92) 05/27/18 08:00 98.7 98.7 Physical Exam General: Alert, No acute distress, Other (intubated) Heart: Regular rate, Normal S1, Normal S2 Lungs: Clear, Other (on vent) Abdomen: Normal bowel sounds, Soft Extremities: No clubbing, No cyanosis Skin: No rashes, No breakdown, Other (dressing C,D,I. drain in place) Labs LABS Laboratory Tests Test 05/27/18 06:05 05/27/18 06:07 05/27/18 08:00 White Blood Count 11.7 x10^3/uL (4.0-11.0) Red Blood Count 3.76 x10^6/uL (4.30-5.70) Hemoglobin 12.1 g/dL (13.0-17.5) Hematocrit 34.2 % (39.0-53.0) Mean Corpuscular Volume 91 fL (79-100) Mean Corpuscular Hemoglobin 32 pg (25-35) Mean Corpuscular Hemoglobin Concent 35 g/dL (31-37) Red Cell Distribution Width 13.0 % (11.5-14.5) Platelet Count 188 x10^3/uL (140-400) Neutrophils (%) (Auto) 83 % (31-73) Lymphocytes (%) (Auto) 10 % (24-48) Monocytes (%) (Auto) 7 % (0-9) Eosinophils (%) (Auto) 0 % (0-3) Basophils (%) (Auto) 0 % (0-3) Neutrophils # (Auto) 9.7 x10^3uL (1.8-7.7) Lymphocytes # (Auto) 1.1 x10^3/uL (1.0-4.8) Monocytes # (Auto) 0.8 x10^3/uL (0.0-1.1) Eosinophils # (Auto) 0.0 x10^3/uL (0.0-0.7) Basophils # (Auto) 0.0 x10^3/uL (0.0-0.2) Sodium Level 144 mmol/L (136-145) Potassium Level 4.0 mmol/L (3.5-5.1) Chloride Level 109 mmol/L (98-107) Carbon Dioxide Level 24 mmol/L (21-32) Anion Gap 11 (6-14) Blood Urea Nitrogen 21 mg/dL (8-26) Creatinine 0.9 mg/dL (0.7-1.3) Estimated GFR (Cockcroft-Gault) 85.5 Glucose Level 134 mg/dL (70-99) Calcium Level 9.0 mg/dL (8.5-10.1) Glucose (Fingerstick) 123 mg/dL (70-99) O2 Saturation 99 % (92-99) Arterial Blood pH 7.49 (7.35-7.45) Arterial Blood pCO2 at Patient Temp 32 mmHg (35-46) Arterial Blood pO2 at Patient Temp 184 mmHg (65-108) Arterial Blood HCO3 24 mmol/L (21-28) Arterial Blood Base Excess 1 mmol/L (-3-3) FiO2 40 Review of Systems Review of Systems Pt intubated, unable to obtain. Assessment and Plan Assessmemt and Plan Problems Medical Problems: (1) Subdural hematoma, acute Status: Acute Assessment: Acute respiratory failure secondary to acute subdural hematoma Acute encephalopathy secondary to subdural hematoma Status post right central craniotomy with evacuation of subdural hematoma and placement of subdural drain on 05/26 Plan: ICU monitoring Vent weaning, possible extubation today if approved by pulm Wound care Cardene drip IV abx Prn propofol Home meds Monitor labs DVT ppx Comment Review of Relevant I have reviewed the following items cesar (where applicable) has been applied. Labs Laboratory Tests Test 05/25/18 23:25 05/26/18 00:32 05/26/18 03:52 05/26/18 04:00 White Blood Count 9.9 x10^3/uL (4.0-11.0) Red Blood Count 4.04 x10^6/uL (4.30-5.70) Hemoglobin 12.9 g/dL (13.0-17.5) Hematocrit 36.5 % (39.0-53.0) Mean Corpuscular Volume 90 fL (79-100) Mean Corpuscular Hemoglobin 32 pg (25-35) Mean Corpuscular Hemoglobin Concent 35 g/dL (31-37) Red Cell Distribution Width 13.0 % (11.5-14.5) Platelet Count 236 x10^3/uL (140-400) Neutrophils (%) (Auto) 86 % (31-73) Lymphocytes (%) (Auto) 9 % (24-48) Monocytes (%) (Auto) 5 % (0-9) Eosinophils (%) (Auto) 0 % (0-3) Basophils (%) (Auto) 0 % (0-3) Neutrophils # (Auto) 8.5 x10^3uL (1.8-7.7) Lymphocytes # (Auto) 0.9 x10^3/uL (1.0-4.8) Monocytes # (Auto) 0.5 x10^3/uL (0.0-1.1) Eosinophils # (Auto) 0.0 x10^3/uL (0.0-0.7) Basophils # (Auto) 0.0 x10^3/uL (0.0-0.2) Segmented Neutrophils % 84 % (35-66) Lymphocytes % 11 % (24-48) Monocytes % 5 % (0-10) Platelet Estimate Adequate (ADEQUATE) Prothrombin Time 14.1 SEC (11.7-14.0) Prothromb Time International Ratio 1.1 (0.8-1.1) Activated Partial Thromboplast Time 30 SEC (24-38) Sodium Level 138 mmol/L (136-145) Potassium Level 4.1 mmol/L (3.5-5.1) Chloride Level 102 mmol/L (98-107) Carbon Dioxide Level 26 mmol/L (21-32) Anion Gap 10 (6-14) Blood Urea Nitrogen 20 mg/dL (8-26) Creatinine 1.0 mg/dL (0.7-1.3) Estimated GFR (Cockcroft-Gault) 75.7 BUN/Creatinine Ratio 20 (6-20) Glucose Level 145 mg/dL (70-99) Lactic Acid Level 1.8 mmol/L (0.4-2.0) Calcium Level 9.1 mg/dL (8.5-10.1) Magnesium Level 1.6 mg/dL (1.8-2.4) Total Bilirubin 0.7 mg/dL (0.2-1.0) Aspartate Amino Transf (AST/SGOT) 11 U/L (15-37) Alanine Aminotransferase (ALT/SGPT) 19 U/L (16-63) Alkaline Phosphatase 83 U/L (46-116) Ammonia 22 mcmol/L (11-34) Creatine Kinase 76 U/L (39-308) Creatine Kinase MB (Mass) 0.9 ng/mL (0.0-3.6) Creatine Kinase MB Relative Index 1.2 % (0-4) Troponin I Quantitative < 0.017 ng/mL (0.000-0.055) Total Protein 7.1 g/dL (6.4-8.2) Albumin 3.6 g/dL (3.4-5.0) Albumin/Globulin Ratio 1.0 (1.0-1.7) Ethyl Alcohol Level < 10 mg/dL (0-10) Urine Collection Type U cath Urine Color Yellow Urine Clarity Clear Urine pH 6.5 Urine Specific [place] 1.025 Urine Protein Negative mg/dL (NEG-TRACE) Urine Glucose (UA) Negative mg/dL (NEG) Urine Ketones (Stick) 15 mg/dL (NEG) Urine Blood Negative (NEG) Urine Nitrite Negative (NEG) Urine Bilirubin Negative (NEG) Urine Urobilinogen Dipstick 0.2 mg/dL (0.2 mg/dL) Urine Leukocyte Esterase Negative (NEG) Urine RBC 0 /HPF (0-2) Urine WBC Occ /HPF (0-4) Urine Squamous Epithelial Cells Occ /LPF Urine Bacteria 0 /HPF (0-FEW) Urine Mucus Slight /LPF Urine Opiates Screen Neg (NEG) Urine Methadone Screen Neg (NEG) Urine Barbiturates Neg (NEG) Urine Phencyclidine Screen Neg (NEG) Urine Amphetamine/Methamphetamine Neg (NEG) Urine Benzodiazepines Screen Neg (NEG) Urine Cocaine Screen Neg (NEG) Urine Cannabinoids Screen Neg (NEG) Urine Ethyl Alcohol Neg (NEG) O2 Saturation 99 % (92-99) Arterial Blood pH 7.49 (7.35-7.45) Arterial Blood pCO2 at Patient Temp 31 mmHg (35-46) Arterial Blood pO2 at Patient Temp 491 mmHg (65-108) Arterial Blood HCO3 23 mmol/L (21-28) Arterial Blood Base Excess 0 mmol/L (-3-3) Oxyhemoglobin 98.5 % Methemoglobin 0.3 % (0.0-1.9) Carbon Monoxide, Quantitative 0.3 % (0.0-1.9) FiO2 100 Nasal Screen MRSA (PCR) Negative (Negative) Test 05/26/18 06:15 05/26/18 06:23 05/26/18 07:50 05/27/18 06:05 White Blood Count 8.1 x10^3/uL (4.0-11.0) 11.7 x10^3/uL (4.0-11.0) Red Blood Count 3.96 x10^6/uL (4.30-5.70) 3.76 x10^6/uL (4.30-5.70) Hemoglobin 12.8 g/dL (13.0-17.5) 12.1 g/dL (13.0-17.5) Hematocrit 35.8 % (39.0-53.0) 34.2 % (39.0-53.0) Mean Corpuscular Volume 90 fL (79-100) 91 fL (79-100) Mean Corpuscular Hemoglobin 32 pg (25-35) 32 pg (25-35) Mean Corpuscular Hemoglobin Concent 36 g/dL (31-37) 35 g/dL (31-37) Red Cell Distribution Width 12.8 % (11.5-14.5) 13.0 % (11.5-14.5) Platelet Count 211 x10^3/uL (140-400) 188 x10^3/uL (140-400) Sodium Level 137 mmol/L (136-145) 144 mmol/L (136-145) Potassium Level 3.8 mmol/L (3.5-5.1) 4.0 mmol/L (3.5-5.1) Chloride Level 104 mmol/L (98-107) 109 mmol/L (98-107) Carbon Dioxide Level 22 mmol/L (21-32) 24 mmol/L (21-32) Anion Gap 11 (6-14) 11 (6-14) Blood Urea Nitrogen 18 mg/dL (8-26) 21 mg/dL (8-26) Creatinine 1.0 mg/dL (0.7-1.3) 0.9 mg/dL (0.7-1.3) Estimated GFR (Cockcroft-Gault) 75.7 85.5 BUN/Creatinine Ratio 18 (6-20) Glucose Level 154 mg/dL (70-99) 134 mg/dL (70-99) Calcium Level 9.0 mg/dL (8.5-10.1) 9.0 mg/dL (8.5-10.1) Magnesium Level 1.8 mg/dL (1.8-2.4) Total Bilirubin 0.6 mg/dL (0.2-1.0) Aspartate Amino Transf (AST/SGOT) 14 U/L (15-37) Alanine Aminotransferase (ALT/SGPT) 15 U/L (16-63) Alkaline Phosphatase 72 U/L (46-116) Total Protein 6.6 g/dL (6.4-8.2) Albumin 3.2 g/dL (3.4-5.0) Albumin/Globulin Ratio 0.9 (1.0-1.7) Glucose (Fingerstick) 155 mg/dL (70-99) O2 Saturation 98 % (92-99) Arterial Blood pH 7.54 (7.35-7.45) Arterial Blood pCO2 at Patient Temp 26 mmHg (35-46) Arterial Blood pO2 at Patient Temp 108 mmHg (65-108) Arterial Blood HCO3 22 mmol/L (21-28) Arterial Blood Base Excess 1 mmol/L (-3-3) FiO2 40% vent Neutrophils (%) (Auto) 83 % (31-73) Lymphocytes (%) (Auto) 10 % (24-48) Monocytes (%) (Auto) 7 % (0-9) Eosinophils (%) (Auto) 0 % (0-3) Basophils (%) (Auto) 0 % (0-3) Neutrophils # (Auto) 9.7 x10^3uL (1.8-7.7) Lymphocytes # (Auto) 1.1 x10^3/uL (1.0-4.8) Monocytes # (Auto) 0.8 x10^3/uL (0.0-1.1) Eosinophils # (Auto) 0.0 x10^3/uL (0.0-0.7) Basophils # (Auto) 0.0 x10^3/uL (0.0-0.2) Test 05/27/18 06:07 05/27/18 08:00 Glucose (Fingerstick) 123 mg/dL (70-99) O2 Saturation 99 % (92-99) Arterial Blood pH 7.49 (7.35-7.45) Arterial Blood pCO2 at Patient Temp 32 mmHg (35-46) Arterial Blood pO2 at Patient Temp 184 mmHg (65-108) Arterial Blood HCO3 24 mmol/L (21-28) Arterial Blood Base Excess 1 mmol/L (-3-3) FiO2 40 Laboratory Tests Test 05/27/18 06:05 05/27/18 06:07 05/27/18 08:00 White Blood Count 11.7 x10^3/uL (4.0-11.0) Red Blood Count 3.76 x10^6/uL (4.30-5.70) Hemoglobin 12.1 g/dL (13.0-17.5) Hematocrit 34.2 % (39.0-53.0) Mean Corpuscular Volume 91 fL (79-100) Mean Corpuscular Hemoglobin 32 pg (25-35) Mean Corpuscular Hemoglobin Concent 35 g/dL (31-37) Red Cell Distribution Width 13.0 % (11.5-14.5) Platelet Count 188 x10^3/uL (140-400) Neutrophils (%) (Auto) 83 % (31-73) Lymphocytes (%) (Auto) 10 % (24-48) Monocytes (%) (Auto) 7 % (0-9) Eosinophils (%) (Auto) 0 % (0-3) Basophils (%) (Auto) 0 % (0-3) Neutrophils # (Auto) 9.7 x10^3uL (1.8-7.7) Lymphocytes # (Auto) 1.1 x10^3/uL (1.0-4.8) Monocytes # (Auto) 0.8 x10^3/uL (0.0-1.1) Eosinophils # (Auto) 0.0 x10^3/uL (0.0-0.7) Basophils # (Auto) 0.0 x10^3/uL (0.0-0.2) Sodium Level 144 mmol/L (136-145) Potassium Level 4.0 mmol/L (3.5-5.1) Chloride Level 109 mmol/L (98-107) Carbon Dioxide Level 24 mmol/L (21-32) Anion Gap 11 (6-14) Blood Urea Nitrogen 21 mg/dL (8-26) Creatinine 0.9 mg/dL (0.7-1.3) Estimated GFR (Cockcroft-Gault) 85.5 Glucose Level 134 mg/dL (70-99) Calcium Level 9.0 mg/dL (8.5-10.1) Glucose (Fingerstick) 123 mg/dL (70-99) O2 Saturation 99 % (92-99) Arterial Blood pH 7.49 (7.35-7.45) Arterial Blood pCO2 at Patient Temp 32 mmHg (35-46) Arterial Blood pO2 at Patient Temp 184 mmHg (65-108) Arterial Blood HCO3 24 mmol/L (21-28) Arterial Blood Base Excess 1 mmol/L (-3-3) FiO2 40 Medications Current Medications Labetalol HCl (Normodyne Iv Push) 20 mg 1X ONCE IVP ; Start 05/26/18 at 00:30 ; Stop 05/26/18 at 01:35; Status DC Etomidate (Amidate) 20 mg 1X ONCE IV Last administered on 05/26/18at 00:23; Start 05/26/18 at 00:30; Stop 05/26/18 at 00:31; Status DC Rocuronium [place] (Zemuron) 50 mg 1X ONCE IV Last administered on 05/26/18at 00:23; Start 05/26/18 at 00:30; Stop 05/26/18 at 00:31; Status DC Propofol 50 ml @ As Directed STK-MED ONCE IV ; Start 05/26/18 at 00:27; Stop 05/26/18 at 00:28; Status DC Propofol 100 ml @ 0 mls/hr CONT PRN IV PER PROTOCOL Last administered on at 00:04; Start 05/26/18 at 00:30 Chlorhexidine Gluconate (Peridex) 15 ml BID MM Last administered on 05/26/18at 08:43; Start 05/26/18 at 09:00 Labetalol HCl (Normodyne Iv Push) 20 mg 1X ONCE IVP ; Start 05/26/18 at 01:30 ; Stop 05/26/18 at 01:35; Status DC Labetalol HCl (Normodyne Iv Push) 20 mg STK-MED ONCE IVP ; Start 05/26/18 at 01 :02; Stop 05/26/18 at 01:35; Status DC Bacitracin 02187 unit/Sodium Chloride 1,000 ml @ 1,000 mls/hr 1X ONCE IRR ; Start 05/26/18 at 02:00; Stop 05/26/18 at 02:59; Status DC Gelatin (Gelfoam Size 100) 1 each STK-MED ONCE .ROUTE Last administered on at 02:19; Start 05/26/18 at 00:13; Stop 05/26/18 at 01:14; Status DC Bupivacaine HCl/ Epinephrine Bitart (Sensorcain-Mpf Epi 0.5%-[id number]) 30 ml STK -MED ONCE .ROUTE Last administered on 05/26/18at 02:19; Start 05/26/18 at 00: 13; Stop 05/26/18 at 01:14; Status DC Mannitol (Mannitol) 12.5 g STK-MED ONCE .ROUTE ; Start 05/26/18 at 00:13; Stop 05/26/18 at 01:14; Status DC Cellulose (Surgicel Hemostat 4x8) 1 each STK-MED ONCE .ROUTE ; Start 05/26/18 at 00:13; Stop 05/26/18 at 01:14; Status DC Thrombin 20,000 unit STK-MED ONCE TP Last administered on 05/26/18at 02:19; Start 05/26/18 at 00:14; Stop 05/26/18 at 01:14; Status DC Rocuronium [place] (Zemuron) 50 mg STK-MED ONCE .ROUTE ; Start 05/26/18 at 01: 16; Stop 05/26/18 at 01:17; Status DC Fentanyl Citrate (Fentanyl 2ml Vial) 100 mcg STK-MED ONCE .ROUTE ; Start at 01:17; Stop 05/26/18 at 01:18; Status DC Mannitol (Mannitol) 12.5 g STK-MED ONCE .ROUTE ; Start 05/26/18 at 00:20; Stop 05/26/18 at 01:20; Status DC Labetalol HCl (Normodyne Iv Push) 5 mg 1X ONCE IVP Last administered on at 01:20; Start 05/26/18 at 02:00; Stop 05/26/18 at 02:01; Status DC Sevoflurane (Ultane) 60 ml STK-MED ONCE IH ; Start 05/26/18 at 01:58; Stop at 01:59; Status DC Rocuronium [place] (Zemuron) 50 mg STK-MED ONCE .ROUTE ; Start 05/26/18 at 01: 58; Stop 05/26/18 at 01:59; Status DC Cefazolin Sodium (Ancef) 1 gm STK-MED ONCE .ROUTE ; Start 05/26/18 at 02:01; Stop 05/26/18 at 02:02; Status DC Cefazolin Sodium (Ancef) 1 gm STK-MED ONCE .ROUTE ; Start 05/26/18 at 02:01; Stop 05/26/18 at 02:02; Status DC Dexamethasone Sodium Phosphate (Decadron) 20 mg STK-MED ONCE .ROUTE ; Start at 03:11; Stop 05/26/18 at 03:12; Status DC Ondansetron HCl (Zofran) 4 mg STK-MED ONCE .ROUTE ; Start 05/26/18 at 03:11; Stop 05/26/18 at 03:12; Status DC Labetalol HCl (Normodyne Iv Push) 20 mg STK-MED ONCE IVP ; Start 05/26/18 at 03 :11; Stop 05/26/18 at 03:12; Status DC Fentanyl Citrate (Fentanyl 2ml Vial) 100 mcg STK-MED ONCE .ROUTE ; Start at 03:13; Stop 05/26/18 at 03:14; Status DC Nicardipine HCl 50 mg/Sodium Chloride 270 ml @ 27 mls/hr CONT PRN IV SEE I/O RECORD Last administered on 05/27/18at 08:12; Start 05/26/18 at 03:45 Cefazolin Sodium/ Dextrose 50 ml @ 100 mls/hr Q8HRS IV Last administered on at 06:01; Start 05/26/18 at 08:30 Ringer's Solution 1,000 ml @ 100 mls/hr Q10H IV Last administered on at 10:14; Start 05/26/18 at 10:00; Stop 05/26/18 at 10:51; Status DC Potassium Chloride/Dextrose/ Sod Cl 1,000 ml @ 75 mls/hr [id number] IV Last administered on 05/27/18at 00:03; Start 05/26/18 at 11:00 Fentanyl Citrate (Fentanyl 2ml Vial) 50 mcg PRN Q2HR PRN IV SEVERE PAIN Last administered on 05/26/18at 22:34; Start 05/26/18 at 21:45 Active Scripts Active [place] 5-325 Tablet (Acetaminophen/Hydrocodone Bitart) 1 Each Tablet 1-2 Tab PO Q4-6HRS PRN Reported Atorvastatin Calcium 40 Mg Tablet 1 Tab PO DAILY Aspirin 81 Mg Tab.chew 81 Mg PO DAILY Colace (Docusate Sodium) 100 Mg Capsule 100 Mg PO BID Flomax (Tamsulosin Hcl) 0.4 Mg Cap.er.24h 0.4 Mg PO DAILY Lisinopril 10 Mg Tablet 10 Mg PO DAILY Vitals/I & O Vital Sign - Last 24 Hours 05/26/18 05/26/18 05/26/18 05/26/18 12:00 12:25 13:00 13:56 Temp 98.3 98.3 Pulse 85 88 Resp 22 12 B/P (MAP) 169/70 (103) 144/78 (100) Pulse Ox 100 100 100 100 O2 Delivery Ventilator Ventilator Ventilator Ventilator 05/26/18 05/26/18 05/26/18 05/26/18 13:58 14:00 14:04 15:00 Pulse 66 66 Resp 12 12 B/P (MAP) 150/78 (102) 147/70 (95) Pulse Ox 100 100 100 100 O2 Delivery Ventilator Ventilator Ventilator 05/26/18 05/26/18 05/26/18 05/26/18 16:00 16:00 16:41 17:00 Temp 100.0 100.0 Pulse 72 66 Resp 12 12 B/P (MAP) 124/59 (80) 124/60 (81) 133/70 (91) Pulse Ox 100 100 100 O2 Delivery Ventilator Ventilator Ventilator 05/26/18 05/26/18 05/26/1805/26/18 18:00 19:00 19:35 20:00 Temp 98.5 98.5 Pulse 62 54 62 Resp 12 12 21 B/P (MAP) 103/50 (67) 138/62 (87) 172/80 (110) Pulse Ox 100 100 100 100 O2 Delivery Ventilator Ventilator Ventilator Ventilator 05/26/18 05/26/18 05/26/18 05/26/18 20:00 20:44 21:00 22:00 Pulse 62 72 68 Resp 20 20 B/P (MAP) 172/80 (110) 135/60 (85) 97/54 (68) Pulse Ox 100 100 100 O2 Delivery Ventilator Ventilator Ventilator 05/26/18 05/26/18 05/26/18 05/26/18 22:34 23:00 23:00 23:04 Pulse 58 Resp 12 20 12 B/P (MAP) 115/58 (77) Pulse Ox 100 100 100 100 O2 Delivery Ventilator Ventilator Ventilator Ventilator 05/27/18 05/27/18 05/27/18 05/27/18 00:00 00:01 01:00 01:00 Temp 98.0 98.0 Pulse 58 58 53 Resp 12 12 B/P (MAP) 115/58 (77) 107/56 (73) 108/56 (73) Pulse Ox 100 100 100 O2 Delivery Ventilator Ventilator Ventilator 05/27/18 05/27/18 05/27/18 05/27/18 02:00 03:00 03:00 04:00 Pulse 65 51 62 Resp 19 20 B/P (MAP) 153/72 (99) 147/66 (93) 142/62 (88) Pulse Ox 100 100 100 O2 Delivery Ventilator Ventilator Ventilator 05/27/18 05/27/18 05/27/18 05/27/18 04:00 05:00 05:30 06:00 Temp 98.4 98.4 Pulse 62 61 62 Resp 12 12 12 B/P (MAP) 142/62 (88) 152/67 (95) 161/64 (96) Pulse Ox 100 100 100 100 O2 Delivery Ventilator Ventilator Ventilator Ventilator 05/27/18 05/27/18 05/27/18 05/27/18 07:00 07:45 07:56 07:58 Pulse 67 66 Resp 20 B/P (MAP) 163/64 (97) 147/60 (89) Pulse Ox 100 100 O2 Delivery Ventilator Mechanical Ventilator Ventilator 05/27/18 05/27/18 05/27/18 05/27/18 08:00 09:00 10:00 11:00 Temp 98.7 98.7 Pulse 67 86 78 64 Resp 16 12 13 16 B/P (MAP) 140/66 (90) 134/58 (83) 131/58 (82) 155/61 (92) Pulse Ox 100 100 100 100 O2 Delivery Ventilator Ventilator Ventilator Ventilator 05/27/18 11:21 Pulse Ox 100 O2 Delivery Ventilator Intake and Output 05/26/18 05/26/18 05/27/18 15:00 23:00 07:00 Intake Total 822 ml 1157 ml Output Total 1205 ml 1345 ml 685 ml Balance -383 ml -1345 ml 472 ml JJ DOAN III DO May 27, 2018 12:01
--- NOTE | 2018-05-27 12:02 | PDOC ---
PULMONARY PROGRESS NOTES Subjective awake following commands Vitals Vital Signs Date Time Temp Pulse Resp B/P (MAP) Pulse Ox O2 Delivery O2 Flow Rate FiO2 05/27/18 11:21 100 Ventilator 05/27/18 11:00 64 16 155/61 (92) 05/27/18 08:00 98.7 98.7 General: Alert, No acute distress Lungs: Clear Cardiovascular: S1 Abdomen: Soft Neuro Exam: Alert Extremities: No Edema Skin: Warm Labs Laboratory Tests Test 05/25/18 23:25 05/26/18 00:32 05/26/18 03:52 05/26/18 04:00 White Blood Count 9.9 x10^3/uL (4.0-11.0) Red Blood Count 4.04 x10^6/uL (4.30-5.70) Hemoglobin 12.9 g/dL (13.0-17.5) Hematocrit 36.5 % (39.0-53.0) Mean Corpuscular Volume 90 fL (79-100) Mean Corpuscular Hemoglobin 32 pg (25-35) Mean Corpuscular Hemoglobin Concent 35 g/dL (31-37) Red Cell Distribution Width 13.0 % (11.5-14.5) Platelet Count 236 x10^3/uL (140-400) Neutrophils (%) (Auto) 86 % (31-73) Lymphocytes (%) (Auto) 9 % (24-48) Monocytes (%) (Auto) 5 % (0-9) Eosinophils (%) (Auto) 0 % (0-3) Basophils (%) (Auto) 0 % (0-3) Neutrophils # (Auto) 8.5 x10^3uL (1.8-7.7) Lymphocytes # (Auto) 0.9 x10^3/uL (1.0-4.8) Monocytes # (Auto) 0.5 x10^3/uL (0.0-1.1) Eosinophils # (Auto) 0.0 x10^3/uL (0.0-0.7) Basophils # (Auto) 0.0 x10^3/uL (0.0-0.2) Segmented Neutrophils % 84 % (35-66) Lymphocytes % 11 % (24-48) Monocytes % 5 % (0-10) Platelet Estimate Adequate (ADEQUATE) Prothrombin Time 14.1 SEC (11.7-14.0) Prothromb Time International Ratio 1.1 (0.8-1.1) Activated Partial Thromboplast Time 30 SEC (24-38) Sodium Level 138 mmol/L (136-145) Potassium Level 4.1 mmol/L (3.5-5.1) Chloride Level 102 mmol/L (98-107) Carbon Dioxide Level 26 mmol/L (21-32) Anion Gap 10 (6-14) Blood Urea Nitrogen 20 mg/dL (8-26) Creatinine 1.0 mg/dL (0.7-1.3) Estimated GFR (Cockcroft-Gault) 75.7 BUN/Creatinine Ratio 20 (6-20) Glucose Level 145 mg/dL (70-99) Lactic Acid Level 1.8 mmol/L (0.4-2.0) Calcium Level 9.1 mg/dL (8.5-10.1) Magnesium Level 1.6 mg/dL (1.8-2.4) Total Bilirubin 0.7 mg/dL (0.2-1.0) Aspartate Amino Transf (AST/SGOT) 11 U/L (15-37) Alanine Aminotransferase (ALT/SGPT) 19 U/L (16-63) Alkaline Phosphatase 83 U/L (46-116) Ammonia 22 mcmol/L (11-34) Creatine Kinase 76 U/L (39-308) Creatine Kinase MB (Mass) 0.9 ng/mL (0.0-3.6) Creatine Kinase MB Relative Index 1.2 % (0-4) Troponin I Quantitative < 0.017 ng/mL (0.000-0.055) Total Protein 7.1 g/dL (6.4-8.2) Albumin 3.6 g/dL (3.4-5.0) Albumin/Globulin Ratio 1.0 (1.0-1.7) Ethyl Alcohol Level < 10 mg/dL (0-10) Urine Collection Type U cath Urine Color Yellow Urine Clarity Clear Urine pH 6.5 Urine Specific [place] 1.025 Urine Protein Negative mg/dL (NEG-TRACE) Urine Glucose (UA) Negative mg/dL (NEG) Urine Ketones (Stick) 15 mg/dL (NEG) Urine Blood Negative (NEG) Urine Nitrite Negative (NEG) Urine Bilirubin Negative (NEG) Urine Urobilinogen Dipstick 0.2 mg/dL (0.2 mg/dL) Urine Leukocyte Esterase Negative (NEG) Urine RBC 0 /HPF (0-2) Urine WBC Occ /HPF (0-4) Urine Squamous Epithelial Cells Occ /LPF Urine Bacteria 0 /HPF (0-FEW) Urine Mucus Slight /LPF Urine Opiates Screen Neg (NEG) Urine Methadone Screen Neg (NEG) Urine Barbiturates Neg (NEG) Urine Phencyclidine Screen Neg (NEG) Urine Amphetamine/Methamphetamine Neg (NEG) Urine Benzodiazepines Screen Neg (NEG) Urine Cocaine Screen Neg (NEG) Urine Cannabinoids Screen Neg (NEG) Urine Ethyl Alcohol Neg (NEG) O2 Saturation 99 % (92-99) Arterial Blood pH 7.49 (7.35-7.45) Arterial Blood pCO2 at Patient Temp 31 mmHg (35-46) Arterial Blood pO2 at Patient Temp 491 mmHg (65-108) Arterial Blood HCO3 23 mmol/L (21-28) Arterial Blood Base Excess 0 mmol/L (-3-3) Oxyhemoglobin 98.5 % Methemoglobin 0.3 % (0.0-1.9) Carbon Monoxide, Quantitative 0.3 % (0.0-1.9) FiO2 100 Nasal Screen MRSA (PCR) Negative (Negative) Test 05/26/18 06:15 05/26/18 06:23 05/26/18 07:50 05/27/18 06:05 White Blood Count 8.1 x10^3/uL (4.0-11.0) 11.7 x10^3/uL (4.0-11.0) Red Blood Count 3.96 x10^6/uL (4.30-5.70) 3.76 x10^6/uL (4.30-5.70) Hemoglobin 12.8 g/dL (13.0-17.5) 12.1 g/dL (13.0-17.5) Hematocrit 35.8 % (39.0-53.0) 34.2 % (39.0-53.0) Mean Corpuscular Volume 90 fL (79-100) 91 fL (79-100) Mean Corpuscular Hemoglobin 32 pg (25-35) 32 pg (25-35) Mean Corpuscular Hemoglobin Concent 36 g/dL (31-37) 35 g/dL (31-37) Red Cell Distribution Width 12.8 % (11.5-14.5) 13.0 % (11.5-14.5) Platelet Count 211 x10^3/uL (140-400) 188 x10^3/uL (140-400) Sodium Level 137 mmol/L (136-145) 144 mmol/L (136-145) Potassium Level 3.8 mmol/L (3.5-5.1) 4.0 mmol/L (3.5-5.1) Chloride Level 104 mmol/L (98-107) 109 mmol/L (98-107) Carbon Dioxide Level 22 mmol/L (21-32) 24 mmol/L (21-32) Anion Gap 11 (6-14) 11 (6-14) Blood Urea Nitrogen 18 mg/dL (8-26) 21 mg/dL (8-26) Creatinine 1.0 mg/dL (0.7-1.3) 0.9 mg/dL (0.7-1.3) Estimated GFR (Cockcroft-Gault) 75.7 85.5 BUN/Creatinine Ratio 18 (6-20) Glucose Level 154 mg/dL (70-99) 134 mg/dL (70-99) Calcium Level 9.0 mg/dL (8.5-10.1) 9.0 mg/dL (8.5-10.1) Magnesium Level 1.8 mg/dL (1.8-2.4) Total Bilirubin 0.6 mg/dL (0.2-1.0) Aspartate Amino Transf (AST/SGOT) 14 U/L (15-37) Alanine Aminotransferase (ALT/SGPT) 15 U/L (16-63) Alkaline Phosphatase 72 U/L (46-116) Total Protein 6.6 g/dL (6.4-8.2) Albumin 3.2 g/dL (3.4-5.0) Albumin/Globulin Ratio 0.9 (1.0-1.7) Glucose (Fingerstick) 155 mg/dL (70-99) O2 Saturation 98 % (92-99) Arterial Blood pH 7.54 (7.35-7.45) Arterial Blood pCO2 at Patient Temp 26 mmHg (35-46) Arterial Blood pO2 at Patient Temp 108 mmHg (65-108) Arterial Blood HCO3 22 mmol/L (21-28) Arterial Blood Base Excess 1 mmol/L (-3-3) FiO2 40% vent Neutrophils (%) (Auto) 83 % (31-73) Lymphocytes (%) (Auto) 10 % (24-48) Monocytes (%) (Auto) 7 % (0-9) Eosinophils (%) (Auto) 0 % (0-3) Basophils (%) (Auto) 0 % (0-3) Neutrophils # (Auto) 9.7 x10^3uL (1.8-7.7) Lymphocytes # (Auto) 1.1 x10^3/uL (1.0-4.8) Monocytes # (Auto) 0.8 x10^3/uL (0.0-1.1) Eosinophils # (Auto) 0.0 x10^3/uL (0.0-0.7) Basophils # (Auto) 0.0 x10^3/uL (0.0-0.2) Test 05/27/18 06:07 05/27/18 08:00 Glucose (Fingerstick) 123 mg/dL (70-99) O2 Saturation 99 % (92-99) Arterial Blood pH 7.49 (7.35-7.45) Arterial Blood pCO2 at Patient Temp 32 mmHg (35-46) Arterial Blood pO2 at Patient Temp 184 mmHg (65-108) Arterial Blood HCO3 24 mmol/L (21-28) Arterial Blood Base Excess 1 mmol/L (-3-3) FiO2 40 Laboratory Tests Test 05/27/18 06:05 05/27/18 06:07 05/27/18 08:00 White Blood Count 11.7 x10^3/uL (4.0-11.0) Red Blood Count 3.76 x10^6/uL (4.30-5.70) Hemoglobin 12.1 g/dL (13.0-17.5) Hematocrit 34.2 % (39.0-53.0) Mean Corpuscular Volume 91 fL (79-100) Mean Corpuscular Hemoglobin 32 pg (25-35) Mean Corpuscular Hemoglobin Concent 35 g/dL (31-37) Red Cell Distribution Width 13.0 % (11.5-14.5) Platelet Count 188 x10^3/uL (140-400) Neutrophils (%) (Auto) 83 % (31-73) Lymphocytes (%) (Auto) 10 % (24-48) Monocytes (%) (Auto) 7 % (0-9) Eosinophils (%) (Auto) 0 % (0-3) Basophils (%) (Auto) 0 % (0-3) Neutrophils # (Auto) 9.7 x10^3uL (1.8-7.7) Lymphocytes # (Auto) 1.1 x10^3/uL (1.0-4.8) Monocytes # (Auto) 0.8 x10^3/uL (0.0-1.1) Eosinophils # (Auto) 0.0 x10^3/uL (0.0-0.7) Basophils # (Auto) 0.0 x10^3/uL (0.0-0.2) Sodium Level 144 mmol/L (136-145) Potassium Level 4.0 mmol/L (3.5-5.1) Chloride Level 109 mmol/L (98-107) Carbon Dioxide Level 24 mmol/L (21-32) Anion Gap 11 (6-14) Blood Urea Nitrogen 21 mg/dL (8-26) Creatinine 0.9 mg/dL (0.7-1.3) Estimated GFR (Cockcroft-Gault) 85.5 Glucose Level 134 mg/dL (70-99) Calcium Level 9.0 mg/dL (8.5-10.1) Glucose (Fingerstick) 123 mg/dL (70-99) O2 Saturation 99 % (92-99) Arterial Blood pH 7.49 (7.35-7.45) Arterial Blood pCO2 at Patient Temp 32 mmHg (35-46) Arterial Blood pO2 at Patient Temp 184 mmHg (65-108) Arterial Blood HCO3 24 mmol/L (21-28) Arterial Blood Base Excess 1 mmol/L (-3-3) FiO2 40 Medications Active Scripts Medications Dose Route/Sig Max Daily Dose Days Date Category Atorvastatin Calcium 40 Mg Tablet 1 Tab PO DAILY 05/26/18 Reported [place] 5-325 Tablet (Acetaminophen/Hydrocodone Bitart) 1 Each Tablet 1-2 Tab PO Q4-6HRS PRN 05/07/18 Rx Aspirin 81 Mg Tab.chew 81 Mg PO DAILY 05/06/18 Reported Colace (Docusate Sodium) 100 Mg Capsule 100 Mg PO BID 05/06/18 Reported Flomax (Tamsulosin Hcl) 0.4 Mg Cap.er.24h 0.4 Mg PO DAILY 05/06/18 Reported Lisinopril 10 Mg Tablet 10 Mg PO DAILY 05/06/18 Reported Impression . 1. Acute respiratory failure secondary to acute subdural hematoma. 2. Acute encephalopathy secondary to subdural hematoma. 3. Status post right central craniotomy with evacuation of subdural hematoma and placement of subdural drain. 5. Clear chest x-ray. Plan . 1. fully awake, CPAP trial and extubation today 2. encephalopathy resolved.. 3. oral nutrition post extubation 4. SCDs for DVT prophylaxis. 5. P.r.n. bronchodilators. 7. Discussed with RN and RT. FLEX HARPER MD May 27, 2018 12:02
[2018-05-27 12:10] LABS: BASE EXCESS ABG 3 mmol/L (-3-3); FIO2 ABG 40; HCO3 ABG 24 mmol/L (21-28); PCO2 ABG 30 mmHg (35-46); PO2 ABG 265 mmHg (65-108); SAT O2 ABG 99 % (92-99)
--- NOTE | 2018-05-27 14:26 | PDOC ---
PROGRESS NOTES Subjective Subjective patient seen at 1235 extubated mild headache Objective Objective Vital Signs Date Time Temp Pulse Resp B/P (MAP) Pulse Ox O2 Delivery O2 Flow Rate FiO2 05/27/18 12:00 83 133/83 (100) 05/27/18 12:00 98.5 21 100 Ventilator 98.5 Intake and Output 05/27/18 07:00 Intake Total 1979 ml Output Total 3235 ml Balance -1256 ml Intake IV Total 1979 ml Output Urine Total 2755 ml Gastric Drainage Total 150 ml Drainage Total 330 ml Physical Exam General: Alert, Cooperative, No acute distress MUSCULOSKELETAL: Other (HURT) Skin: Other (dressing dry and intact, drain removed without difficluty) Assessment Assessment Problems Medical Problems: (1) Subdural hematoma, acute Status: Acute Plan Plan of Care increase activity as tolerated SCDs will follow Comment Review of Relevant I have reviewed the following items cesar (where applicable) has been applied. Labs Laboratory Tests Test 05/25/18 23:25 05/26/18 00:32 05/26/18 03:52 05/26/18 04:00 White Blood Count 9.9 x10^3/uL (4.0-11.0) Red Blood Count 4.04 x10^6/uL (4.30-5.70) Hemoglobin 12.9 g/dL (13.0-17.5) Hematocrit 36.5 % (39.0-53.0) Mean Corpuscular Volume 90 fL (79-100) Mean Corpuscular Hemoglobin 32 pg (25-35) Mean Corpuscular Hemoglobin Concent 35 g/dL (31-37) Red Cell Distribution Width 13.0 % (11.5-14.5) Platelet Count 236 x10^3/uL (140-400) Neutrophils (%) (Auto) 86 % (31-73) Lymphocytes (%) (Auto) 9 % (24-48) Monocytes (%) (Auto) 5 % (0-9) Eosinophils (%) (Auto) 0 % (0-3) Basophils (%) (Auto) 0 % (0-3) Neutrophils # (Auto) 8.5 x10^3uL (1.8-7.7) Lymphocytes # (Auto) 0.9 x10^3/uL (1.0-4.8) Monocytes # (Auto) 0.5 x10^3/uL (0.0-1.1) Eosinophils # (Auto) 0.0 x10^3/uL (0.0-0.7) Basophils # (Auto) 0.0 x10^3/uL (0.0-0.2) Segmented Neutrophils % 84 % (35-66) Lymphocytes % 11 % (24-48) Monocytes % 5 % (0-10) Platelet Estimate Adequate (ADEQUATE) Prothrombin Time 14.1 SEC (11.7-14.0) Prothromb Time International Ratio 1.1 (0.8-1.1) Activated Partial Thromboplast Time 30 SEC (24-38) Sodium Level 138 mmol/L (136-145) Potassium Level 4.1 mmol/L (3.5-5.1) Chloride Level 102 mmol/L (98-107) Carbon Dioxide Level 26 mmol/L (21-32) Anion Gap 10 (6-14) Blood Urea Nitrogen 20 mg/dL (8-26) Creatinine 1.0 mg/dL (0.7-1.3) Estimated GFR (Cockcroft-Gault) 75.7 BUN/Creatinine Ratio 20 (6-20) Glucose Level 145 mg/dL (70-99) Lactic Acid Level 1.8 mmol/L (0.4-2.0) Calcium Level 9.1 mg/dL (8.5-10.1) Magnesium Level 1.6 mg/dL (1.8-2.4) Total Bilirubin 0.7 mg/dL (0.2-1.0) Aspartate Amino Transf (AST/SGOT) 11 U/L (15-37) Alanine Aminotransferase (ALT/SGPT) 19 U/L (16-63) Alkaline Phosphatase 83 U/L (46-116) Ammonia 22 mcmol/L (11-34) Creatine Kinase 76 U/L (39-308) Creatine Kinase MB (Mass) 0.9 ng/mL (0.0-3.6) Creatine Kinase MB Relative Index 1.2 % (0-4) Troponin I Quantitative < 0.017 ng/mL (0.000-0.055) Total Protein 7.1 g/dL (6.4-8.2) Albumin 3.6 g/dL (3.4-5.0) Albumin/Globulin Ratio 1.0 (1.0-1.7) Ethyl Alcohol Level < 10 mg/dL (0-10) Urine Collection Type U cath Urine Color Yellow Urine Clarity Clear Urine pH 6.5 Urine Specific [place] 1.025 Urine Protein Negative mg/dL (NEG-TRACE) Urine Glucose (UA) Negative mg/dL (NEG) Urine Ketones (Stick) 15 mg/dL (NEG) Urine Blood Negative (NEG) Urine Nitrite Negative (NEG) Urine Bilirubin Negative (NEG) Urine Urobilinogen Dipstick 0.2 mg/dL (0.2 mg/dL) Urine Leukocyte Esterase Negative (NEG) Urine RBC 0 /HPF (0-2) Urine WBC Occ /HPF (0-4) Urine Squamous Epithelial Cells Occ /LPF Urine Bacteria 0 /HPF (0-FEW) Urine Mucus Slight /LPF Urine Opiates Screen Neg (NEG) Urine Methadone Screen Neg (NEG) Urine Barbiturates Neg (NEG) Urine Phencyclidine Screen Neg (NEG) Urine Amphetamine/Methamphetamine Neg (NEG) Urine Benzodiazepines Screen Neg (NEG) Urine Cocaine Screen Neg (NEG) Urine Cannabinoids Screen Neg (NEG) Urine Ethyl Alcohol Neg (NEG) O2 Saturation 99 % (92-99) Arterial Blood pH 7.49 (7.35-7.45) Arterial Blood pCO2 at Patient Temp 31 mmHg (35-46) Arterial Blood pO2 at Patient Temp 491 mmHg (65-108) Arterial Blood HCO3 23 mmol/L (21-28) Arterial Blood Base Excess 0 mmol/L (-3-3) Oxyhemoglobin 98.5 % Methemoglobin 0.3 % (0.0-1.9) Carbon Monoxide, Quantitative 0.3 % (0.0-1.9) FiO2 100 Nasal Screen MRSA (PCR) Negative (Negative) Test 05/26/18 06:15 05/26/18 06:23 05/26/18 07:50 05/27/18 06:05 White Blood Count 8.1 x10^3/uL (4.0-11.0) 11.7 x10^3/uL (4.0-11.0) Red Blood Count 3.96 x10^6/uL (4.30-5.70) 3.76 x10^6/uL (4.30-5.70) Hemoglobin 12.8 g/dL (13.0-17.5) 12.1 g/dL (13.0-17.5) Hematocrit 35.8 % (39.0-53.0) 34.2 % (39.0-53.0) Mean Corpuscular Volume 90 fL (79-100) 91 fL (79-100) Mean Corpuscular Hemoglobin 32 pg (25-35) 32 pg (25-35) Mean Corpuscular Hemoglobin Concent 36 g/dL (31-37) 35 g/dL (31-37) Red Cell Distribution Width 12.8 % (11.5-14.5) 13.0 % (11.5-14.5) Platelet Count 211 x10^3/uL (140-400) 188 x10^3/uL (140-400) Sodium Level 137 mmol/L (136-145) 144 mmol/L (136-145) Potassium Level 3.8 mmol/L (3.5-5.1) 4.0 mmol/L (3.5-5.1) Chloride Level 104 mmol/L (98-107) 109 mmol/L (98-107) Carbon Dioxide Level 22 mmol/L (21-32) 24 mmol/L (21-32) Anion Gap 11 (6-14) 11 (6-14) Blood Urea Nitrogen 18 mg/dL (8-26) 21 mg/dL (8-26) Creatinine 1.0 mg/dL (0.7-1.3) 0.9 mg/dL (0.7-1.3) Estimated GFR (Cockcroft-Gault) 75.7 85.5 BUN/Creatinine Ratio 18 (6-20) Glucose Level 154 mg/dL (70-99) 134 mg/dL (70-99) Calcium Level 9.0 mg/dL (8.5-10.1) 9.0 mg/dL (8.5-10.1) Magnesium Level 1.8 mg/dL (1.8-2.4) Total Bilirubin 0.6 mg/dL (0.2-1.0) Aspartate Amino Transf (AST/SGOT) 14 U/L (15-37) Alanine Aminotransferase (ALT/SGPT) 15 U/L (16-63) Alkaline Phosphatase 72 U/L (46-116) Total Protein 6.6 g/dL (6.4-8.2) Albumin 3.2 g/dL (3.4-5.0) Albumin/Globulin Ratio 0.9 (1.0-1.7) Glucose (Fingerstick) 155 mg/dL (70-99) O2 Saturation 98 % (92-99) Arterial Blood pH 7.54 (7.35-7.45) Arterial Blood pCO2 at Patient Temp 26 mmHg (35-46) Arterial Blood pO2 at Patient Temp 108 mmHg (65-108) Arterial Blood HCO3 22 mmol/L (21-28) Arterial Blood Base Excess 1 mmol/L (-3-3) FiO2 40% vent Neutrophils (%) (Auto) 83 % (31-73) Lymphocytes (%) (Auto) 10 % (24-48) Monocytes (%) (Auto) 7 % (0-9) Eosinophils (%) (Auto) 0 % (0-3) Basophils (%) (Auto) 0 % (0-3) Neutrophils # (Auto) 9.7 x10^3uL (1.8-7.7) Lymphocytes # (Auto) 1.1 x10^3/uL (1.0-4.8) Monocytes # (Auto) 0.8 x10^3/uL (0.0-1.1) Eosinophils # (Auto) 0.0 x10^3/uL (0.0-0.7) Basophils # (Auto) 0.0 x10^3/uL (0.0-0.2) Test 05/27/18 06:07 05/27/18 08:00 05/27/18 11:59 Glucose (Fingerstick) 123 mg/dL (70-99) O2 Saturation 99 % (92-99) 99 % (92-99) Arterial Blood pH 7.49 (7.35-7.45) 7.53 (7.35-7.45) Arterial Blood pCO2 at Patient Temp 32 mmHg (35-46) 30 mmHg (35-46) Arterial Blood pO2 at Patient Temp 184 mmHg (65-108) 265 mmHg (65-108) Arterial Blood HCO3 24 mmol/L (21-28) 24 mmol/L (21-28) Arterial Blood Base Excess 1 mmol/L (-3-3) 3 mmol/L (-3-3) FiO2 40 40 Laboratory Tests Test 05/27/18 06:05 05/27/18 06:07 05/27/18 08:00 05/27/18 11:59 White Blood Count 11.7 x10^3/uL (4.0-11.0) Red Blood Count 3.76 x10^6/uL (4.30-5.70) Hemoglobin 12.1 g/dL (13.0-17.5) Hematocrit 34.2 % (39.0-53.0) Mean Corpuscular Volume 91 fL (79-100) Mean Corpuscular Hemoglobin 32 pg (25-35) Mean Corpuscular Hemoglobin Concent 35 g/dL (31-37) Red Cell Distribution Width 13.0 % (11.5-14.5) Platelet Count 188 x10^3/uL (140-400) Neutrophils (%) (Auto) 83 % (31-73) Lymphocytes (%) (Auto) 10 % (24-48) Monocytes (%) (Auto) 7 % (0-9) Eosinophils (%) (Auto) 0 % (0-3) Basophils (%) (Auto) 0 % (0-3) Neutrophils # (Auto) 9.7 x10^3uL (1.8-7.7) Lymphocytes # (Auto) 1.1 x10^3/uL (1.0-4.8) Monocytes # (Auto) 0.8 x10^3/uL (0.0-1.1) Eosinophils # (Auto) 0.0 x10^3/uL (0.0-0.7) Basophils # (Auto) 0.0 x10^3/uL (0.0-0.2) Sodium Level 144 mmol/L (136-145) Potassium Level 4.0 mmol/L (3.5-5.1) Chloride Level 109 mmol/L (98-107) Carbon Dioxide Level 24 mmol/L (21-32) Anion Gap 11 (6-14) Blood Urea Nitrogen 21 mg/dL (8-26) Creatinine 0.9 mg/dL (0.7-1.3) Estimated GFR (Cockcroft-Gault) 85.5 Glucose Level 134 mg/dL (70-99) Calcium Level 9.0 mg/dL (8.5-10.1) Glucose (Fingerstick) 123 mg/dL (70-99) O2 Saturation 99 % (92-99) 99 % (92-99) Arterial Blood pH 7.49 (7.35-7.45) 7.53 (7.35-7.45) Arterial Blood pCO2 at Patient Temp 32 mmHg (35-46) 30 mmHg (35-46) Arterial Blood pO2 at Patient Temp 184 mmHg (65-108) 265 mmHg (65-108) Arterial Blood HCO3 24 mmol/L (21-28) 24 mmol/L (21-28) Arterial Blood Base Excess 1 mmol/L (-3-3) 3 mmol/L (-3-3) FiO2 40 40 Medications Current Medications Labetalol HCl (Normodyne Iv Push) 20 mg 1X ONCE IVP ; Start 05/26/18 at 00:30 ; Stop 05/26/18 at 01:35; Status DC Etomidate (Amidate) 20 mg 1X ONCE IV Last administered on 05/26/18at 00:23; Start 05/26/18 at 00:30; Stop 05/26/18 at 00:31; Status DC Rocuronium [place] (Zemuron) 50 mg 1X ONCE IV Last administered on 05/26/18at 00:23; Start 05/26/18 at 00:30; Stop 05/26/18 at 00:31; Status DC Propofol 50 ml @ As Directed STK-MED ONCE IV ; Start 05/26/18 at 00:27; Stop 05/26/18 at 00:28; Status DC Propofol 100 ml @ 0 mls/hr CONT PRN IV PER PROTOCOL Last administered on at 00:04; Start 05/26/18 at 00:30 Chlorhexidine Gluconate (Peridex) 15 ml BID MM Last administered on 05/26/18at 08:43; Start 05/26/18 at 09:00 Labetalol HCl (Normodyne Iv Push) 20 mg 1X ONCE IVP ; Start 05/26/18 at 01:30 ; Stop 05/26/18 at 01:35; Status DC Labetalol HCl (Normodyne Iv Push) 20 mg STK-MED ONCE IVP ; Start 05/26/18 at 01 :02; Stop 05/26/18 at 01:35; Status DC Bacitracin 64860 unit/Sodium Chloride 1,000 ml @ 1,000 mls/hr 1X ONCE IRR ; Start 05/26/18 at 02:00; Stop 05/26/18 at 02:59; Status DC Gelatin (Gelfoam Size 100) 1 each STK-MED ONCE .ROUTE Last administered on at 02:19; Start 05/26/18 at 00:13; Stop 05/26/18 at 01:14; Status DC Bupivacaine HCl/ Epinephrine Bitart (Sensorcain-Mpf Epi 0.5%-1:[id number]) 30 ml STK -MED ONCE .ROUTE Last administered on 05/26/18at 02:19; Start 05/26/18 at 00: 13; Stop 05/26/18 at 01:14; Status DC Mannitol (Mannitol) 12.5 g STK-MED ONCE .ROUTE ; Start 05/26/18 at 00:13; Stop 05/26/18 at 01:14; Status DC Cellulose (Surgicel Hemostat 4x8) 1 each STK-MED ONCE .ROUTE ; Start 05/26/18 at 00:13; Stop 05/26/18 at 01:14; Status DC Thrombin 20,000 unit STK-MED ONCE TP Last administered on 05/26/18at 02:19; Start 05/26/18 at 00:14; Stop 05/26/18 at 01:14; Status DC Rocuronium [place] (Zemuron) 50 mg STK-MED ONCE .ROUTE ; Start 05/26/18 at 01: 16; Stop 05/26/18 at 01:17; Status DC Fentanyl Citrate (Fentanyl 2ml Vial) 100 mcg STK-MED ONCE .ROUTE ; Start at 01:17; Stop 05/26/18 at 01:18; Status DC Mannitol (Mannitol) 12.5 g STK-MED ONCE .ROUTE ; Start 05/26/18 at 00:20; Stop 05/26/18 at 01:20; Status DC Labetalol HCl (Normodyne Iv Push) 5 mg 1X ONCE IVP Last administered on at 01:20; Start 05/26/18 at 02:00; Stop 05/26/18 at 02:01; Status DC Sevoflurane (Ultane) 60 ml STK-MED ONCE IH ; Start 05/26/18 at 01:58; Stop at 01:59; Status DC Rocuronium [place] (Zemuron) 50 mg STK-MED ONCE .ROUTE ; Start 05/26/18 at 01: 58; Stop 05/26/18 at 01:59; Status DC Cefazolin Sodium (Ancef) 1 gm STK-MED ONCE .ROUTE ; Start 05/26/18 at 02:01; Stop 05/26/18 at 02:02; Status DC Cefazolin Sodium (Ancef) 1 gm STK-MED ONCE .ROUTE ; Start 05/26/18 at 02:01; Stop 05/26/18 at 02:02; Status DC Dexamethasone Sodium Phosphate (Decadron) 20 mg STK-MED ONCE .ROUTE ; Start at 03:11; Stop 05/26/18 at 03:12; Status DC Ondansetron HCl (Zofran) 4 mg STK-MED ONCE .ROUTE ; Start 05/26/18 at 03:11; Stop 05/26/18 at 03:12; Status DC Labetalol HCl (Normodyne Iv Push) 20 mg STK-MED ONCE IVP ; Start 05/26/18 at 03 :11; Stop 05/26/18 at 03:12; Status DC Fentanyl Citrate (Fentanyl 2ml Vial) 100 mcg STK-MED ONCE .ROUTE ; Start at 03:13; Stop 05/26/18 at 03:14; Status DC Nicardipine HCl 50 mg/Sodium Chloride 270 ml @ 27 mls/hr CONT PRN IV SEE I/O RECORD Last administered on 05/27/18at 08:12; Start 05/26/18 at 03:45 Cefazolin Sodium/ Dextrose 50 ml @ 100 mls/hr Q8HRS IV Last administered on at 14:14; Start 05/26/18 at 08:30 Ringer's Solution 1,000 ml @ 100 mls/hr Q10H IV Last administered on at 10:14; Start 05/26/18 at 10:00; Stop 05/26/18 at 10:51; Status DC Potassium Chloride/Dextrose/ Sod Cl 1,000 ml @ 75 mls/hr [id number] IV Last administered on 05/27/18at 00:03; Start 05/26/18 at 11:00 Fentanyl Citrate (Fentanyl 2ml Vial) 50 mcg PRN Q2HR PRN IV SEVERE PAIN Last administered on 05/26/18at 22:34; Start 05/26/18 at 21:45 Active Scripts Active [place] 5-325 Tablet (Acetaminophen/Hydrocodone Bitart) 1 Each Tablet 1-2 Tab PO Q4-6HRS PRN Reported Atorvastatin Calcium 40 Mg Tablet 1 Tab PO DAILY Aspirin 81 Mg Tab.chew 81 Mg PO DAILY Colace (Docusate Sodium) 100 Mg Capsule 100 Mg PO BID Flomax (Tamsulosin Hcl) 0.4 Mg Cap.er.24h 0.4 Mg PO DAILY Lisinopril 10 Mg Tablet 10 Mg PO DAILY Vitals/I & O Vital Sign - Last 24 Hours 05/26/18 05/26/18 05/26/18 05/26/18 15:00 16:00 16:00 16:41 Temp 100.0 100.0 Pulse 66 72 Resp 12 12 B/P (MAP) 147/70 (95) 124/59 (80) 124/60 (81) Pulse Ox 100 100 100 O2 Delivery Ventilator Ventilator Ventilator 05/26/18 05/26/18 05/26/18 05/26/18 17:00 18:00 19:00 19:35 Pulse 66 62 54 Resp 12 12 12 B/P (MAP) 133/70 (91) 103/50 (67) 138/62 (87) Pulse Ox 100 100 100 100 O2 Delivery Ventilator Ventilator Ventilator Ventilator 05/26/18 05/26/18 05/26/18 05/26/18 20:00 20:00 20:44 21:00 Temp 98.5 98.5 Pulse 62 62 72 Resp 21 20 B/P (MAP) 172/80 (110) 172/80 (110) 135/60 (85) Pulse Ox 100 100 100 O2 Delivery Ventilator Ventilator Ventilator 05/26/18 05/26/18 05/26/18 05/26/18 22:00 22:34 23:00 23:00 Pulse 68 58 Resp 20 12 20 B/P (MAP) 97/54 (68) 115/58 (77) Pulse Ox 100 100 100 100 O2 Delivery Ventilator Ventilator Ventilator Ventilator 05/26/18 05/27/18 05/27/18 05/27/18 23:04 00:00 00:01 01:00 Temp 98.0 98.0 Pulse 58 58 53 Resp 12 12 12 B/P (MAP) 115/58 (77) 107/56 (73) 108/56 (73) Pulse Ox 100 100 100 O2 Delivery Ventilator Ventilator Ventilator 05/27/18 05/27/18 05/27/18 05/27/18 01:00 02:00 03:00 03:00 Pulse 65 51 Resp 19 20 B/P (MAP) 153/72 (99) 147/66 (93) Pulse Ox 100 100 100 100 O2 Delivery Ventilator Ventilator Ventilator Ventilator 05/27/18 05/27/18 05/27/18 05/27/18 04:00 04:00 05:00 05:30 Temp 98.4 98.4 Pulse 62 62 61 Resp 12 12 B/P (MAP) 142/62 (88) 142/62 (88) 152/67 (95) Pulse Ox 100 100 100 O2 Delivery Ventilator Ventilator Ventilator 05/27/18 05/27/18 05/27/18 05/27/18 06:00 07:00 07:45 07:56 Pulse 62 67 Resp 12 20 B/P (MAP) 161/64 (96) 163/64 (97) Pulse Ox 100 100 100 O2 Delivery Ventilator Ventilator Mechanical Ventilator Ventilator 05/27/18 05/27/18 05/27/18 05/27/18 07:58 08:00 09:00 10:00 Temp 98.7 98.7 Pulse 66 67 86 78 Resp 16 12 13 B/P (MAP) 147/60 (89) 140/66 (90) 134/58 (83) 131/58 (82) Pulse Ox 100 100 100 O2 Delivery Ventilator Ventilator Ventilator 05/27/18 05/27/18 05/27/18 05/27/18 11:00 11:21 12:00 12:00 Temp 98.5 98.5 Pulse 64 87 Resp 16 21 B/P (MAP) 155/61 (92) 148/65 (92) Pulse Ox 100 100 100 O2 Delivery Ventilator Ventilator Mechanical Ventilator Ventilator 05/27/18 12:00 Pulse 83 B/P (MAP) 133/83 (100) Intake and Output 05/26/18 05/26/18 05/27/18 15:00 23:00 07:00 Intake Total 822 ml 1157 ml Output Total 1205 ml 1345 ml 685 ml Balance -383 ml -1345 ml 472 ml LISA CUMMINGS MD May 27, 2018 14:26
[2018-05-28] VITALS (15 sets, daily range): BP systolic 129–148; BP diastolic 52–83
[2018-05-28] MEDS: POTASSIUM CL 20MEQ D5-0.45NACL 1,000 ML IV SCH ×2 (05:34→16:20)
[2018-05-28 06:22] LABS: CALCIUM 8.7 mg/dL (8.5-10.1); CREATININE 0.8 mg/dL (0.7-1.3); POTASSIUM 3.9 mmol/L (3.5-5.1)
[2018-05-28 06:29] LABS: BASO % 0 % (0-3); EOS # 0.1 x10^3/uL (0.0-0.7); EOS % 1 % (0-3); HEMATOCRIT 36.6 % (39.0-53.0); HEMOGLOBIN 12.8 g/dL (13.0-17.5); LYMPH # 2.3 x10^3/uL (1.0-4.8); LYMPH % 20 % (24-48); MEAN CORPUSCULAR HEMOGLOBIN 32 pg (25-35); MEAN CORPUSCULAR HGB CONC 35 g/dL (31-37); MEAN CORPUSCULAR VOLUME 92 fL (79-100); MONO % 9 % (0-9); NEUT % 70 % (31-73); PLATELET COUNT 230 x10^3/uL (140-400); RED BLOOD COUNT 3.98 x10^6/uL (4.30-5.70); RED CELL DISTRIBUTION WIDTH 13.1 % (11.5-14.5); WHITE BLOOD COUNT 11.5 x10^3/uL (4.0-11.0)
--- NOTE | 2018-05-28 10:08 | PATHOLOGY ---
[facility] Accession Number: [id number] . 01 Material submitted: . RIGHT SUBDURAL HEMATOMA . 01 Clinical history: . Subdural hematoma . 02 Diagnosis: Right subdural hematoma evacuation: - Hematoma. . 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 02 Comment: There is no evidence of malignancy. . 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 02 Electronically signed: . Marco Jiménez MD, Pathologist NPI- [id number] . 01 Gross description: . The specimen is received in formalin, labeled "Rd Her, right subdural hematoma is a 2.0 x 1.6 x 1.0 cm dark brown clot, serially sectioned and entirely submitted in A1. ([facility]; 05/26/2018) SHS/SHS . 02 Pathologist provided ICD-10: I62.00 . 02 CPT . 335735 Specimen Comment: A courtesy copy of this report has been sent to Specimen Comment: [phone], . Specimen Comment: Report sent to / DR QUACH Specimen Comment: A duplicate report has been generated due to demographic updates. Performed at: 01 [facility] [address], [place] [id number] MD Mann Vo MD Phone: [phone] Performed at: 02 [facility] [address] [place], [place] [id number] MD Marco Jiménez MD Phone: [phone]
--- NOTE | 2018-05-28 10:20 | PDOC ---
PROGRESS NOTES Subjective Subjective sitting up in bed mild headache Objective Objective Vital Signs Date Time Temp Pulse Resp B/P (MAP) Pulse Ox O2 Delivery O2 Flow Rate FiO2 05/28/18 09:00 72 16 148/68 (94) 99 Nasal Cannula 2.0 05/28/18 08:00 99.4 99.4 Intake and Output 05/28/18 07:00 Intake Total 200 ml Output Total 3450 ml Balance -3250 ml Intake Oral 200 ml Output Urine Total 3400 ml Drainage Total 50 ml Physical Exam General: Alert, Oriented X3, Cooperative, No acute distress MUSCULOSKELETAL: Other (HURT) Neuro: Normal speech Skin: Other (incision clean and dry, jessica intact) Assessment Assessment Problems Medical Problems: (1) Subdural hematoma, acute Status: Acute Plan Plan of Care may transfer to floor PT Comment Review of Relevant I have reviewed the following items cesar (where applicable) has been applied. Labs Laboratory Tests Test 05/27/18 06:05 05/27/18 06:07 05/27/18 08:00 05/27/18 11:59 White Blood Count 11.7 x10^3/uL (4.0-11.0) Red Blood Count 3.76 x10^6/uL (4.30-5.70) Hemoglobin 12.1 g/dL (13.0-17.5) Hematocrit 34.2 % (39.0-53.0) Mean Corpuscular Volume 91 fL (79-100) Mean Corpuscular Hemoglobin 32 pg (25-35) Mean Corpuscular Hemoglobin Concent 35 g/dL (31-37) Red Cell Distribution Width 13.0 % (11.5-14.5) Platelet Count 188 x10^3/uL (140-400) Neutrophils (%) (Auto) 83 % (31-73) Lymphocytes (%) (Auto) 10 % (24-48) Monocytes (%) (Auto) 7 % (0-9) Eosinophils (%) (Auto) 0 % (0-3) Basophils (%) (Auto) 0 % (0-3) Neutrophils # (Auto) 9.7 x10^3uL (1.8-7.7) Lymphocytes # (Auto) 1.1 x10^3/uL (1.0-4.8) Monocytes # (Auto) 0.8 x10^3/uL (0.0-1.1) Eosinophils # (Auto) 0.0 x10^3/uL (0.0-0.7) Basophils # (Auto) 0.0 x10^3/uL (0.0-0.2) Sodium Level 144 mmol/L (136-145) Potassium Level 4.0 mmol/L (3.5-5.1) Chloride Level 109 mmol/L (98-107) Carbon Dioxide Level 24 mmol/L (21-32) Anion Gap 11 (6-14) Blood Urea Nitrogen 21 mg/dL (8-26) Creatinine 0.9 mg/dL (0.7-1.3) Estimated GFR (Cockcroft-Gault) 85.5 Glucose Level 134 mg/dL (70-99) Calcium Level 9.0 mg/dL (8.5-10.1) Glucose (Fingerstick) 123 mg/dL (70-99) O2 Saturation 99 % (92-99) 99 % (92-99) Arterial Blood pH 7.49 (7.35-7.45) 7.53 (7.35-7.45) Arterial Blood pCO2 at Patient Temp 32 mmHg (35-46) 30 mmHg (35-46) Arterial Blood pO2 at Patient Temp 184 mmHg (65-108) 265 mmHg (65-108) Arterial Blood HCO3 24 mmol/L (21-28) 24 mmol/L (21-28) Arterial Blood Base Excess 1 mmol/L (-3-3) 3 mmol/L (-3-3) FiO2 40 40 Test 05/28/18 06:00 White Blood Count 11.5 x10^3/uL (4.0-11.0) Red Blood Count 3.98 x10^6/uL (4.30-5.70) Hemoglobin 12.8 g/dL (13.0-17.5) Hematocrit 36.6 % (39.0-53.0) Mean Corpuscular Volume 92 fL (79-100) Mean Corpuscular Hemoglobin 32 pg (25-35) Mean Corpuscular Hemoglobin Concent 35 g/dL (31-37) Red Cell Distribution Width 13.1 % (11.5-14.5) Platelet Count 230 x10^3/uL (140-400) Neutrophils (%) (Auto) 70 % (31-73) Lymphocytes (%) (Auto) 20 % (24-48) Monocytes (%) (Auto) 9 % (0-9) Eosinophils (%) (Auto) 1 % (0-3) Basophils (%) (Auto) 0 % (0-3) Neutrophils # (Auto) 8.0 x10^3uL (1.8-7.7) Lymphocytes # (Auto) 2.3 x10^3/uL (1.0-4.8) Monocytes # (Auto) 1.0 x10^3/uL (0.0-1.1) Eosinophils # (Auto) 0.1 x10^3/uL (0.0-0.7) Basophils # (Auto) 0.0 x10^3/uL (0.0-0.2) Sodium Level 141 mmol/L (136-145) Potassium Level 3.9 mmol/L (3.5-5.1) Chloride Level 105 mmol/L (98-107) Carbon Dioxide Level 27 mmol/L (21-32) Anion Gap 9 (6-14) Blood Urea Nitrogen 18 mg/dL (8-26) Creatinine 0.8 mg/dL (0.7-1.3) Estimated GFR (Cockcroft-Gault) 98.0 Glucose Level 121 mg/dL (70-99) Calcium Level 8.7 mg/dL (8.5-10.1) Laboratory Tests Test 05/27/18 11:59 05/28/18 06:00 O2 Saturation 99 % (92-99) Arterial Blood pH 7.53 (7.35-7.45) Arterial Blood pCO2 at Patient Temp 30 mmHg (35-46) Arterial Blood pO2 at Patient Temp 265 mmHg (65-108) Arterial Blood HCO3 24 mmol/L (21-28) Arterial Blood Base Excess 3 mmol/L (-3-3) FiO2 40 White Blood Count 11.5 x10^3/uL (4.0-11.0) Red Blood Count 3.98 x10^6/uL (4.30-5.70) Hemoglobin 12.8 g/dL (13.0-17.5) Hematocrit 36.6 % (39.0-53.0) Mean Corpuscular Volume 92 fL (79-100) Mean Corpuscular Hemoglobin 32 pg (25-35) Mean Corpuscular Hemoglobin Concent 35 g/dL (31-37) Red Cell Distribution Width 13.1 % (11.5-14.5) Platelet Count 230 x10^3/uL (140-400) Neutrophils (%) (Auto) 70 % (31-73) Lymphocytes (%) (Auto) 20 % (24-48) Monocytes (%) (Auto) 9 % (0-9) Eosinophils (%) (Auto) 1 % (0-3) Basophils (%) (Auto) 0 % (0-3) Neutrophils # (Auto) 8.0 x10^3uL (1.8-7.7) Lymphocytes # (Auto) 2.3 x10^3/uL (1.0-4.8) Monocytes # (Auto) 1.0 x10^3/uL (0.0-1.1) Eosinophils # (Auto) 0.1 x10^3/uL (0.0-0.7) Basophils # (Auto) 0.0 x10^3/uL (0.0-0.2) Sodium Level 141 mmol/L (136-145) Potassium Level 3.9 mmol/L (3.5-5.1) Chloride Level 105 mmol/L (98-107) Carbon Dioxide Level 27 mmol/L (21-32) Anion Gap 9 (6-14) Blood Urea Nitrogen 18 mg/dL (8-26) Creatinine 0.8 mg/dL (0.7-1.3) Estimated GFR (Cockcroft-Gault) 98.0 Glucose Level 121 mg/dL (70-99) Calcium Level 8.7 mg/dL (8.5-10.1) Medications Current Medications Labetalol HCl (Normodyne Iv Push) 20 mg 1X ONCE IVP ; Start 05/26/18 at 00:30 ; Stop 05/26/18 at 01:35; Status DC Etomidate (Amidate) 20 mg 1X ONCE IV Last administered on 05/26/18at 00:23; Start 05/26/18 at 00:30; Stop 05/26/18 at 00:31; Status DC Rocuronium [place] (Zemuron) 50 mg 1X ONCE IV Last administered on 05/26/18at 00:23; Start 05/26/18 at 00:30; Stop 05/26/18 at 00:31; Status DC Propofol 50 ml @ As Directed STK-MED ONCE IV ; Start 05/26/18 at 00:27; Stop 05/26/18 at 00:28; Status DC Propofol 100 ml @ 0 mls/hr CONT PRN IV PER PROTOCOL Last administered on at 00:04; Start 05/26/18 at 00:30 Chlorhexidine Gluconate (Peridex) 15 ml BID MM Last administered on 05/26/18at 08:43; Start 05/26/18 at 09:00; Stop 05/27/18 at 21:28; Status DC Labetalol HCl (Normodyne Iv Push) 20 mg 1X ONCE IVP ; Start 05/26/18 at 01:30 ; Stop 05/26/18 at 01:35; Status DC Labetalol HCl (Normodyne Iv Push) 20 mg STK-MED ONCE IVP ; Start 05/26/18 at 01 :02; Stop 05/26/18 at 01:35; Status DC Bacitracin 29253 unit/Sodium Chloride 1,000 ml @ 1,000 mls/hr 1X ONCE IRR ; Start 05/26/18 at 02:00; Stop 05/26/18 at 02:59; Status DC Gelatin (Gelfoam Size 100) 1 each STK-MED ONCE .ROUTE Last administered on at 02:19; Start 05/26/18 at 00:13; Stop 05/26/18 at 01:14; Status DC Bupivacaine HCl/ Epinephrine Bitart (Sensorcain-Mpf Epi 0.5%-1:[id number]) 30 ml STK -MED ONCE .ROUTE Last administered on 05/26/18at 02:19; Start 05/26/18 at 00: 13; Stop 05/26/18 at 01:14; Status DC Mannitol (Mannitol) 12.5 g STK-MED ONCE .ROUTE ; Start 05/26/18 at 00:13; Stop 05/26/18 at 01:14; Status DC Cellulose (Surgicel Hemostat 4x8) 1 each STK-MED ONCE .ROUTE ; Start 05/26/18 at 00:13; Stop 05/26/18 at 01:14; Status DC Thrombin 20,000 unit STK-MED ONCE TP Last administered on 05/26/18at 02:19; Start 05/26/18 at 00:14; Stop 05/26/18 at 01:14; Status DC Rocuronium [place] (Zemuron) 50 mg STK-MED ONCE .ROUTE ; Start 05/26/18 at 01: 16; Stop 05/26/18 at 01:17; Status DC Fentanyl Citrate (Fentanyl 2ml Vial) 100 mcg STK-MED ONCE .ROUTE ; Start at 01:17; Stop 05/26/18 at 01:18; Status DC Mannitol (Mannitol) 12.5 g STK-MED ONCE .ROUTE ; Start 05/26/18 at 00:20; Stop 05/26/18 at 01:20; Status DC Labetalol HCl (Normodyne Iv Push) 5 mg 1X ONCE IVP Last administered on at 01:20; Start 05/26/18 at 02:00; Stop 05/26/18 at 02:01; Status DC Sevoflurane (Ultane) 60 ml STK-MED ONCE IH ; Start 05/26/18 at 01:58; Stop at 01:59; Status DC Rocuronium [place] (Zemuron) 50 mg STK-MED ONCE .ROUTE ; Start 05/26/18 at 01: 58; Stop 05/26/18 at 01:59; Status DC Cefazolin Sodium (Ancef) 1 gm STK-MED ONCE .ROUTE ; Start 05/26/18 at 02:01; Stop 05/26/18 at 02:02; Status DC Cefazolin Sodium (Ancef) 1 gm STK-MED ONCE .ROUTE ; Start 05/26/18 at 02:01; Stop 05/26/18 at 02:02; Status DC Dexamethasone Sodium Phosphate (Decadron) 20 mg STK-MED ONCE .ROUTE ; Start at 03:11; Stop 05/26/18 at 03:12; Status DC Ondansetron HCl (Zofran) 4 mg STK-MED ONCE .ROUTE ; Start 05/26/18 at 03:11; Stop 05/26/18 at 03:12; Status DC Labetalol HCl (Normodyne Iv Push) 20 mg STK-MED ONCE IVP ; Start 05/26/18 at 03 :11; Stop 05/26/18 at 03:12; Status DC Fentanyl Citrate (Fentanyl 2ml Vial) 100 mcg STK-MED ONCE .ROUTE ; Start at 03:13; Stop 05/26/18 at 03:14; Status DC Nicardipine HCl 50 mg/Sodium Chloride 270 ml @ 27 mls/hr CONT PRN IV SEE I/O RECORD Last administered on 05/28/18at 00:07; Start 05/26/18 at 03:45 Cefazolin Sodium/ Dextrose 50 ml @ 100 mls/hr Q8HRS IV Last administered on at 05:35; Start 05/26/18 at 08:30 Ringer's Solution 1,000 ml @ 100 mls/hr Q10H IV Last administered on at 10:14; Start 05/26/18 at 10:00; Stop 05/26/18 at 10:51; Status DC Potassium Chloride/Dextrose/ Sod Cl 1,000 ml @ 75 mls/hr [id number] IV Last administered on 05/28/18at 05:34; Start 05/26/18 at 11:00 Fentanyl Citrate (Fentanyl 2ml Vial) 50 mcg PRN Q2HR PRN IV SEVERE PAIN Last administered on 05/26/18at 22:34; Start 05/26/18 at 21:45 Active Scripts Active [place] 5-325 Tablet (Acetaminophen/Hydrocodone Bitart) 1 Each Tablet 1-2 Tab PO Q4-6HRS PRN Reported Atorvastatin Calcium 40 Mg Tablet 1 Tab PO DAILY Aspirin 81 Mg Tab.chew 81 Mg PO DAILY Colace (Docusate Sodium) 100 Mg Capsule 100 Mg PO BID Flomax (Tamsulosin Hcl) 0.4 Mg Cap.er.24h 0.4 Mg PO DAILY Lisinopril 10 Mg Tablet 10 Mg PO DAILY Vitals/I & O Vital Sign - Last 24 Hours 05/27/18 05/27/18 05/27/18 05/27/18 11:00 11:21 12:00 12:00 Temp 98.5 98.5 Pulse 64 87 Resp 16 21 B/P (MAP) 155/61 (92) 148/65 (92) Pulse Ox 100 100 100 O2 Delivery Ventilator Ventilator Mechanical Ventilator Ventilator 05/27/18 05/27/18 05/27/18 05/27/18 12:00 13:00 14:00 15:00 Pulse 83 80 90 77 Resp 10 24 14 B/P (MAP) 133/83 (100) 134/46 (75) 157/62 (93) 141/57 (85) Pulse Ox 99 100 100 O2 Delivery Nasal Cannula Nasal Cannula Nasal Cannula O2 Flow Rate 2.0 2.0 2.0 05/27/18 05/27/18 05/27/18 05/27/18 16:00 16:00 16:00 17:00 Temp 98.9 98.9 Pulse 79 79 78 Resp 23 19 B/P (MAP) 144/57 (86) 144/57 (86) 151/59 (89) Pulse Ox 100 100 O2 Delivery Nasal Cannula Nasal Cannula Nasal Cannula O2 Flow Rate 2.0 2.0 2.0 05/27/18 05/27/18 05/27/18 05/27/18 18:00 19:00 20:00 20:00 Pulse 73 82 Resp 12 16 B/P (MAP) 146/57 (86) 150/58 (88) Pulse Ox 100 100 O2 Delivery Nasal Cannula Nasal Cannula Nasal Cannula O2 Flow Rate 2.0 2.0 2.0 05/27/18 05/27/18 05/27/18 05/27/18 20:00 20:00 21:00 22:00 Temp 98.2 98.2 Pulse 76 74 77 Resp 16 14 14 B/P (MAP) 142/58 (86) 126/58 (80) 140/56 (84) 132/54 (80) Pulse Ox 100 100 100 O2 Delivery Nasal Cannula Nasal Cannula Nasal Cannula O2 Flow Rate 2.0 2.0 2.0 05/27/18 05/28/18 05/28/18 05/28/18 23:00 00:00 00:00 00:00 Temp 98.5 98.5 Pulse 74 76 Resp 16 17 B/P (MAP) 136/52 (80) 134/54 (80) Pulse Ox 100 98 O2 Delivery Nasal Cannula Nasal Cannula O2 Flow Rate 2.0 2.0 2.0 05/28/18 05/28/18 05/28/18 05/28/18 01:00 02:00 03:00 04:00 Pulse 77 77 77 Resp 14 14 14 B/P (MAP) 132/54 (80) 132/54 (80) 129/52 (77) Pulse Ox 100 100 100 O2 Delivery Nasal Cannula Nasal Cannula Nasal Cannula Nasal Cannula O2 Flow Rate 2.0 2.0 2.0 2.0 05/28/18 05/28/18 05/28/18 05/28/18 04:00 04:00 05:00 06:00 Temp 98.6 98.6 Pulse 76 76 67 Resp 17 17 16 B/P (MAP) 137/56 (83) 142/58 (86) 139/55 (83) Pulse Ox 98 98 99 O2 Flow Rate 2.0 2.0 2.0 05/28/18 05/28/18 05/28/18 05/28/18 07:00 08:00 08:00 08:00 Temp 99.4 99.4 Pulse 70 68 Resp 16 16 B/P (MAP) 140/62 (88) 132/60 (84) Pulse Ox 99 100 O2 Delivery Nasal Cannula Nasal Cannula Nasal Cannula O2 Flow Rate 2.0 2.0 2.0 05/28/18 09:00 Pulse 72 Resp 16 B/P (MAP) 148/68 (94) Pulse Ox 99 O2 Delivery Nasal Cannula O2 Flow Rate 2.0 Intake and Output 05/27/18 05/27/18 05/28/18 15:00 23:00 07:00 Intake Total 200 ml Output Total 1375 ml 1100 ml 975 ml Balance -1375 ml -900 ml -975 ml DONAL AUGUSTE APRN May 28, 2018 10:20
[2018-05-28] MEDS ORDERED: HYDROcodone/APAP 5/325MG 1 TAB TABLET PO PRN ×2 (10:30)
--- NOTE | 2018-05-28 12:29 | PDOC ---
PROGRESS NOTES Chief Complaint Chief Complaint Acute respiratory failure secondary to acute subdural hematoma Acute encephalopathy secondary to subdural hematoma Status post right central craniotomy with evacuation of subdural hematoma and placement of subdural drain on 05/26 History of Present Illness History of Present Illness Pt seen and examined in ICU Discussed with control systems specialist facility officers at bedside Vitals Vitals Vital Signs Date Time Temp Pulse Resp B/P (MAP) Pulse Ox O2 Delivery O2 Flow Rate FiO2 05/28/18 12:00 05/28/18 11:00 79 16 99 Room Air 05/28/18 09:00 2.0 05/28/18 08:00 99.4 99.4 Physical Exam General: Alert, Cooperative, No acute distress Heart: Normal S1, Normal S2 Lungs: Clear Abdomen: Soft, No tenderness Extremities: No clubbing, No cyanosis Skin: No rashes, Other (incision clean and dry, jessica intact) Labs LABS Laboratory Tests Test 05/28/18 06:00 White Blood Count 11.5 x10^3/uL (4.0-11.0) Red Blood Count 3.98 x10^6/uL (4.30-5.70) Hemoglobin 12.8 g/dL (13.0-17.5) Hematocrit 36.6 % (39.0-53.0) Mean Corpuscular Volume 92 fL (79-100) Mean Corpuscular Hemoglobin 32 pg (25-35) Mean Corpuscular Hemoglobin Concent 35 g/dL (31-37) Red Cell Distribution Width 13.1 % (11.5-14.5) Platelet Count 230 x10^3/uL (140-400) Neutrophils (%) (Auto) 70 % (31-73) Lymphocytes (%) (Auto) 20 % (24-48) Monocytes (%) (Auto) 9 % (0-9) Eosinophils (%) (Auto) 1 % (0-3) Basophils (%) (Auto) 0 % (0-3) Neutrophils # (Auto) 8.0 x10^3uL (1.8-7.7) Lymphocytes # (Auto) 2.3 x10^3/uL (1.0-4.8) Monocytes # (Auto) 1.0 x10^3/uL (0.0-1.1) Eosinophils # (Auto) 0.1 x10^3/uL (0.0-0.7) Basophils # (Auto) 0.0 x10^3/uL (0.0-0.2) Sodium Level 141 mmol/L (136-145) Potassium Level 3.9 mmol/L (3.5-5.1) Chloride Level 105 mmol/L (98-107) Carbon Dioxide Level 27 mmol/L (21-32) Anion Gap 9 (6-14) Blood Urea Nitrogen 18 mg/dL (8-26) Creatinine 0.8 mg/dL (0.7-1.3) Estimated GFR (Cockcroft-Gault) 98.0 Glucose Level 121 mg/dL (70-99) Calcium Level 8.7 mg/dL (8.5-10.1) Review of Systems Review of Systems Pt denies SOB and CP. Complains of mild GARCIA. Assessment and Plan Assessmemt and Plan Problems Medical Problems: (1) Subdural hematoma, acute Status: Acute Assessment: Acute respiratory failure secondary to acute subdural hematoma Acute encephalopathy secondary to subdural hematoma Status post right central craniotomy with evacuation of subdural hematoma and placement of subdural drain on 05/26 Plan: ICU monitoring Advance diet as tolerated now that he is off vent PT/OT Wound care IV abx Home meds Monitor labs DVT ppx Comment Review of Relevant I have reviewed the following items cesar (where applicable) has been applied. Labs Laboratory Tests Test 05/27/18 06:05 05/27/18 06:07 05/27/18 08:00 05/27/18 11:59 White Blood Count 11.7 x10^3/uL (4.0-11.0) Red Blood Count 3.76 x10^6/uL (4.30-5.70) Hemoglobin 12.1 g/dL (13.0-17.5) Hematocrit 34.2 % (39.0-53.0) Mean Corpuscular Volume 91 fL (79-100) Mean Corpuscular Hemoglobin 32 pg (25-35) Mean Corpuscular Hemoglobin Concent 35 g/dL (31-37) Red Cell Distribution Width 13.0 % (11.5-14.5) Platelet Count 188 x10^3/uL (140-400) Neutrophils (%) (Auto) 83 % (31-73) Lymphocytes (%) (Auto) 10 % (24-48) Monocytes (%) (Auto) 7 % (0-9) Eosinophils (%) (Auto) 0 % (0-3) Basophils (%) (Auto) 0 % (0-3) Neutrophils # (Auto) 9.7 x10^3uL (1.8-7.7) Lymphocytes # (Auto) 1.1 x10^3/uL (1.0-4.8) Monocytes # (Auto) 0.8 x10^3/uL (0.0-1.1) Eosinophils # (Auto) 0.0 x10^3/uL (0.0-0.7) Basophils # (Auto) 0.0 x10^3/uL (0.0-0.2) Sodium Level 144 mmol/L (136-145) Potassium Level 4.0 mmol/L (3.5-5.1) Chloride Level 109 mmol/L (98-107) Carbon Dioxide Level 24 mmol/L (21-32) Anion Gap 11 (6-14) Blood Urea Nitrogen 21 mg/dL (8-26) Creatinine 0.9 mg/dL (0.7-1.3) Estimated GFR (Cockcroft-Gault) 85.5 Glucose Level 134 mg/dL (70-99) Calcium Level 9.0 mg/dL (8.5-10.1) Glucose (Fingerstick) 123 mg/dL (70-99) O2 Saturation 99 % (92-99) 99 % (92-99) Arterial Blood pH 7.49 (7.35-7.45) 7.53 (7.35-7.45) Arterial Blood pCO2 at Patient Temp 32 mmHg (35-46) 30 mmHg (35-46) Arterial Blood pO2 at Patient Temp 184 mmHg (65-108) 265 mmHg (65-108) Arterial Blood HCO3 24 mmol/L (21-28) 24 mmol/L (21-28) Arterial Blood Base Excess 1 mmol/L (-3-3) 3 mmol/L (-3-3) FiO2 40 40 Test 05/28/18 06:00 White Blood Count 11.5 x10^3/uL (4.0-11.0) Red Blood Count 3.98 x10^6/uL (4.30-5.70) Hemoglobin 12.8 g/dL (13.0-17.5) Hematocrit 36.6 % (39.0-53.0) Mean Corpuscular Volume 92 fL (79-100) Mean Corpuscular Hemoglobin 32 pg (25-35) Mean Corpuscular Hemoglobin Concent 35 g/dL (31-37) Red Cell Distribution Width 13.1 % (11.5-14.5) Platelet Count 230 x10^3/uL (140-400) Neutrophils (%) (Auto) 70 % (31-73) Lymphocytes (%) (Auto) 20 % (24-48) Monocytes (%) (Auto) 9 % (0-9) Eosinophils (%) (Auto) 1 % (0-3) Basophils (%) (Auto) 0 % (0-3) Neutrophils # (Auto) 8.0 x10^3uL (1.8-7.7) Lymphocytes # (Auto) 2.3 x10^3/uL (1.0-4.8) Monocytes # (Auto) 1.0 x10^3/uL (0.0-1.1) Eosinophils # (Auto) 0.1 x10^3/uL (0.0-0.7) Basophils # (Auto) 0.0 x10^3/uL (0.0-0.2) Sodium Level 141 mmol/L (136-145) Potassium Level 3.9 mmol/L (3.5-5.1) Chloride Level 105 mmol/L (98-107) Carbon Dioxide Level 27 mmol/L (21-32) Anion Gap 9 (6-14) Blood Urea Nitrogen 18 mg/dL (8-26) Creatinine 0.8 mg/dL (0.7-1.3) Estimated GFR (Cockcroft-Gault) 98.0 Glucose Level 121 mg/dL (70-99) Calcium Level 8.7 mg/dL (8.5-10.1) Laboratory Tests Test 05/28/18 06:00 White Blood Count 11.5 x10^3/uL (4.0-11.0) Red Blood Count 3.98 x10^6/uL (4.30-5.70) Hemoglobin 12.8 g/dL (13.0-17.5) Hematocrit 36.6 % (39.0-53.0) Mean Corpuscular Volume 92 fL (79-100) Mean Corpuscular Hemoglobin 32 pg (25-35) Mean Corpuscular Hemoglobin Concent 35 g/dL (31-37) Red Cell Distribution Width 13.1 % (11.5-14.5) Platelet Count 230 x10^3/uL (140-400) Neutrophils (%) (Auto) 70 % (31-73) Lymphocytes (%) (Auto) 20 % (24-48) Monocytes (%) (Auto) 9 % (0-9) Eosinophils (%) (Auto) 1 % (0-3) Basophils (%) (Auto) 0 % (0-3) Neutrophils # (Auto) 8.0 x10^3uL (1.8-7.7) Lymphocytes # (Auto) 2.3 x10^3/uL (1.0-4.8) Monocytes # (Auto) 1.0 x10^3/uL (0.0-1.1) Eosinophils # (Auto) 0.1 x10^3/uL (0.0-0.7) Basophils # (Auto) 0.0 x10^3/uL (0.0-0.2) Sodium Level 141 mmol/L (136-145) Potassium Level 3.9 mmol/L (3.5-5.1) Chloride Level 105 mmol/L (98-107) Carbon Dioxide Level 27 mmol/L (21-32) Anion Gap 9 (6-14) Blood Urea Nitrogen 18 mg/dL (8-26) Creatinine 0.8 mg/dL (0.7-1.3) Estimated GFR (Cockcroft-Gault) 98.0 Glucose Level 121 mg/dL (70-99) Calcium Level 8.7 mg/dL (8.5-10.1) Medications Current Medications Labetalol HCl (Normodyne Iv Push) 20 mg 1X ONCE IVP ; Start 05/26/18 at 00:30 ; Stop 05/26/18 at 01:35; Status DC Etomidate (Amidate) 20 mg 1X ONCE IV Last administered on 05/26/18at 00:23; Start 05/26/18 at 00:30; Stop 05/26/18 at 00:31; Status DC Rocuronium [place] (Zemuron) 50 mg 1X ONCE IV Last administered on 05/26/18at 00:23; Start 05/26/18 at 00:30; Stop 05/26/18 at 00:31; Status DC Propofol 50 ml @ As Directed STK-MED ONCE IV ; Start 05/26/18 at 00:27; Stop 05/26/18 at 00:28; Status DC Propofol 100 ml @ 0 mls/hr CONT PRN IV PER PROTOCOL Last administered on at 00:04; Start 05/26/18 at 00:30 Chlorhexidine Gluconate (Peridex) 15 ml BID MM Last administered on 05/26/18at 08:43; Start 05/26/18 at 09:00; Stop 05/27/18 at 21:28; Status DC Labetalol HCl (Normodyne Iv Push) 20 mg 1X ONCE IVP ; Start 05/26/18 at 01:30 ; Stop 05/26/18 at 01:35; Status DC Labetalol HCl (Normodyne Iv Push) 20 mg STK-MED ONCE IVP ; Start 05/26/18 at 01 :02; Stop 05/26/18 at 01:35; Status DC Bacitracin 41792 unit/Sodium Chloride 1,000 ml @ 1,000 mls/hr 1X ONCE IRR ; Start 05/26/18 at 02:00; Stop 05/26/18 at 02:59; Status DC Gelatin (Gelfoam Size 100) 1 each STK-MED ONCE .ROUTE Last administered on at 02:19; Start 05/26/18 at 00:13; Stop 05/26/18 at 01:14; Status DC Bupivacaine HCl/ Epinephrine Bitart (Sensorcain-Mpf Epi 0.5%-1:[id number]) 30 ml STK -MED ONCE .ROUTE Last administered on 05/26/18at 02:19; Start 05/26/18 at 00: 13; Stop 05/26/18 at 01:14; Status DC Mannitol (Mannitol) 12.5 g STK-MED ONCE .ROUTE ; Start 05/26/18 at 00:13; Stop 05/26/18 at 01:14; Status DC Cellulose (Surgicel Hemostat 4x8) 1 each STK-MED ONCE .ROUTE ; Start 05/26/18 at 00:13; Stop 05/26/18 at 01:14; Status DC Thrombin 20,000 unit STK-MED ONCE TP Last administered on 05/26/18at 02:19; Start 05/26/18 at 00:14; Stop 05/26/18 at 01:14; Status DC Rocuronium [place] (Zemuron) 50 mg STK-MED ONCE .ROUTE ; Start 05/26/18 at 01: 16; Stop 05/26/18 at 01:17; Status DC Fentanyl Citrate (Fentanyl 2ml Vial) 100 mcg STK-MED ONCE .ROUTE ; Start at 01:17; Stop 05/26/18 at 01:18; Status DC Mannitol (Mannitol) 12.5 g STK-MED ONCE .ROUTE ; Start 05/26/18 at 00:20; Stop 05/26/18 at 01:20; Status DC Labetalol HCl (Normodyne Iv Push) 5 mg 1X ONCE IVP Last administered on at 01:20; Start 05/26/18 at 02:00; Stop 05/26/18 at 02:01; Status DC Sevoflurane (Ultane) 60 ml STK-MED ONCE IH ; Start 05/26/18 at 01:58; Stop at 01:59; Status DC Rocuronium [place] (Zemuron) 50 mg STK-MED ONCE .ROUTE ; Start 05/26/18 at 01: 58; Stop 05/26/18 at 01:59; Status DC Cefazolin Sodium (Ancef) 1 gm STK-MED ONCE .ROUTE ; Start 05/26/18 at 02:01; Stop 05/26/18 at 02:02; Status DC Cefazolin Sodium (Ancef) 1 gm STK-MED ONCE .ROUTE ; Start 05/26/18 at 02:01; Stop 05/26/18 at 02:02; Status DC Dexamethasone Sodium Phosphate (Decadron) 20 mg STK-MED ONCE .ROUTE ; Start at 03:11; Stop 05/26/18 at 03:12; Status DC Ondansetron HCl (Zofran) 4 mg STK-MED ONCE .ROUTE ; Start 05/26/18 at 03:11; Stop 05/26/18 at 03:12; Status DC Labetalol HCl (Normodyne Iv Push) 20 mg STK-MED ONCE IVP ; Start 05/26/18 at 03 :11; Stop 05/26/18 at 03:12; Status DC Fentanyl Citrate (Fentanyl 2ml Vial) 100 mcg STK-MED ONCE .ROUTE ; Start at 03:13; Stop 05/26/18 at 03:14; Status DC Nicardipine HCl 50 mg/Sodium Chloride 270 ml @ 27 mls/hr CONT PRN IV SEE I/O RECORD Last administered on 05/28/18at 00:07; Start 05/26/18 at 03:45 Cefazolin Sodium/ Dextrose 50 ml @ 100 mls/hr Q8HRS IV Last administered on at 05:35; Start 05/26/18 at 08:30; Stop 05/28/18 at 10:19; Status DC Ringer's Solution 1,000 ml @ 100 mls/hr Q10H IV Last administered on at 10:14; Start 05/26/18 at 10:00; Stop 05/26/18 at 10:51; Status DC Potassium Chloride/Dextrose/ Sod Cl 1,000 ml @ 75 mls/hr [id number] IV Last administered on 05/28/18at 05:34; Start 05/26/18 at 11:00 Fentanyl Citrate (Fentanyl 2ml Vial) 50 mcg PRN Q2HR PRN IV SEVERE PAIN Last administered on 05/26/18at 22:34; Start 05/26/18 at 21:45 Acetaminophen/ Hydrocodone Bitart (Lortab 5/325) 1 tab PRN Q4HRS PRN PO MILD- MODERATE PAIN; Start 05/28/18 at 10:30 Acetaminophen/ Hydrocodone Bitart (Lortab 5/325) 2 tab PRN Q4HRS PRN PO SEVERE PAIN; Start 05/28/18 at 10:30 Active Scripts Active [place] 5-325 Tablet (Acetaminophen/Hydrocodone Bitart) 1 Each Tablet 1-2 Tab PO Q4-6HRS PRN Reported Atorvastatin Calcium 40 Mg Tablet 1 Tab PO DAILY Aspirin 81 Mg Tab.chew 81 Mg PO DAILY Colace (Docusate Sodium) 100 Mg Capsule 100 Mg PO BID Flomax (Tamsulosin Hcl) 0.4 Mg Cap.er.24h 0.4 Mg PO DAILY Lisinopril 10 Mg Tablet 10 Mg PO DAILY Vitals/I & O Vital Sign - Last 24 Hours 10/05/27/18 05/27/18 05/27/18 13:00 14:00 15:00 16:00 Pulse 80 90 77 79 Resp 10 24 14 B/P (MAP) 134/46 (75) 157/62 (93) 141/57 (85) 144/57 (86) Pulse Ox 99 100 100 O2 Delivery Nasal Cannula Nasal Cannula Nasal Cannula O2 Flow Rate 2.0 2.0 2.0 05/27/18 05/27/18 05/27/18 05/27/18 16:00 16:00 17:00 18:00 Temp 98.9 98.9 Pulse 79 78 73 Resp 23 19 12 B/P (MAP) 144/57 (86) 151/59 (89) 146/57 (86) Pulse Ox 100 100 100 O2 Delivery Nasal Cannula Nasal Cannula Nasal Cannula Nasal Cannula O2 Flow Rate 2.0 2.0 2.0 2.0 05/27/18 05/27/18 05/27/18 05/27/18 19:00 20:00 20:00 20:00 Temp 98.2 98.2 Pulse 82 76 Resp 16 16 B/P (MAP) 150/58 (88) 142/58 (86) Pulse Ox 100 100 O2 Delivery Nasal Cannula Nasal Cannula Nasal Cannula O2 Flow Rate 2.0 2.0 2.0 05/27/18 05/27/18 05/27/18 05/27/18 20:00 21:00 22:00 23:00 Pulse 74 77 74 Resp 14 14 16 B/P (MAP) 126/58 (80) 140/56 (84) 132/54 (80) 136/52 (80) Pulse Ox 100 100 100 O2 Delivery Nasal Cannula Nasal Cannula Nasal Cannula O2 Flow Rate 2.0 2.0 2.0 05/28/18 05/28/18 05/28/18 05/28/18 00:00 00:00 00:00 01:00 Temp 98.5 98.5 Pulse 76 77 Resp 17 14 B/P (MAP) 134/54 (80) 132/54 (80) Pulse Ox 98 100 O2 Delivery Nasal Cannula Nasal Cannula O2 Flow Rate 2.0 2.0 2.0 05/28/18 05/28/18 05/28/18 05/28/18 02:00 03:00 04:00 04:00 Temp 98.6 98.6 Pulse 77 77 76 Resp 14 14 17 B/P (MAP) 132/54 (80) 129/52 (77) 137/56 (83) Pulse Ox 100 100 98 O2 Delivery Nasal Cannula Nasal Cannula Nasal Cannula O2 Flow Rate 2.0 2.0 2.0 2.0 05/28/18 05/28/18 05/28/18 05/28/18 04:00 05:00 06:00 07:00 Pulse 76 67 70 Resp 17 16 16 B/P (MAP) 142/58 (86) 139/55 (83) 140/62 (88) Pulse Ox 98 99 99 O2 Delivery Nasal Cannula O2 Flow Rate 2.0 2.0 2.0 05/28/18 05/28/18 05/28/18 05/28/18 08:00 08:00 08:00 09:00 Temp 99.4 99.4 Pulse 68 72 Resp 16 16 B/P (MAP) 132/60 (84) 148/68 (94) Pulse Ox 100 99 O2 Delivery Nasal Cannula Nasal Cannula Nasal Cannula O2 Flow Rate 2.0 2.0 2.0 05/28/18 05/28/18 05/28/18 10:00 11:00 12:00 Pulse 75 79 Resp 16 16 B/P (MAP) 147/68 (94) 145/63 (90) Pulse Ox 100 99 O2 Delivery Room Air Room Air Intake and Output 05/27/18 05/27/18 05/28/18 15:00 23:00 07:00 Intake Total 200 ml Output Total 1375 ml 1100 ml 975 ml Balance -1375 ml -900 ml -975 ml JJ DOAN III DO May 28, 2018 12:29
--- NOTE | 2018-05-28 13:03 | PDOC ---
PULMONARY PROGRESS NOTES Subjective doing well since extubation Vitals Vital Signs Date Time Temp Pulse Resp B/P (MAP) Pulse Ox O2 Delivery O2 Flow Rate FiO2 05/28/18 12:00 05/28/18 11:00 79 16 99 Room Air 05/28/18 09:00 2.0 05/28/18 08:00 99.4 99.4 General: Alert, No acute distress Lungs: Clear Cardiovascular: S1 Abdomen: Soft Neuro Exam: Alert Extremities: No Edema Skin: Warm Labs Laboratory Tests Test 05/27/18 06:05 05/27/18 06:07 05/27/18 08:00 05/27/18 11:59 White Blood Count 11.7 x10^3/uL (4.0-11.0) Red Blood Count 3.76 x10^6/uL (4.30-5.70) Hemoglobin 12.1 g/dL (13.0-17.5) Hematocrit 34.2 % (39.0-53.0) Mean Corpuscular Volume 91 fL (79-100) Mean Corpuscular Hemoglobin 32 pg (25-35) Mean Corpuscular Hemoglobin Concent 35 g/dL (31-37) Red Cell Distribution Width 13.0 % (11.5-14.5) Platelet Count 188 x10^3/uL (140-400) Neutrophils (%) (Auto) 83 % (31-73) Lymphocytes (%) (Auto) 10 % (24-48) Monocytes (%) (Auto) 7 % (0-9) Eosinophils (%) (Auto) 0 % (0-3) Basophils (%) (Auto) 0 % (0-3) Neutrophils # (Auto) 9.7 x10^3uL (1.8-7.7) Lymphocytes # (Auto) 1.1 x10^3/uL (1.0-4.8) Monocytes # (Auto) 0.8 x10^3/uL (0.0-1.1) Eosinophils # (Auto) 0.0 x10^3/uL (0.0-0.7) Basophils # (Auto) 0.0 x10^3/uL (0.0-0.2) Sodium Level 144 mmol/L (136-145) Potassium Level 4.0 mmol/L (3.5-5.1) Chloride Level 109 mmol/L (98-107) Carbon Dioxide Level 24 mmol/L (21-32) Anion Gap 11 (6-14) Blood Urea Nitrogen 21 mg/dL (8-26) Creatinine 0.9 mg/dL (0.7-1.3) Estimated GFR (Cockcroft-Gault) 85.5 Glucose Level 134 mg/dL (70-99) Calcium Level 9.0 mg/dL (8.5-10.1) Glucose (Fingerstick) 123 mg/dL (70-99) O2 Saturation 99 % (92-99) 99 % (92-99) Arterial Blood pH 7.49 (7.35-7.45) 7.53 (7.35-7.45) Arterial Blood pCO2 at Patient Temp 32 mmHg (35-46) 30 mmHg (35-46) Arterial Blood pO2 at Patient Temp 184 mmHg (65-108) 265 mmHg (65-108) Arterial Blood HCO3 24 mmol/L (21-28) 24 mmol/L (21-28) Arterial Blood Base Excess 1 mmol/L (-3-3) 3 mmol/L (-3-3) FiO2 40 40 Test 05/28/18 06:00 White Blood Count 11.5 x10^3/uL (4.0-11.0) Red Blood Count 3.98 x10^6/uL (4.30-5.70) Hemoglobin 12.8 g/dL (13.0-17.5) Hematocrit 36.6 % (39.0-53.0) Mean Corpuscular Volume 92 fL (79-100) Mean Corpuscular Hemoglobin 32 pg (25-35) Mean Corpuscular Hemoglobin Concent 35 g/dL (31-37) Red Cell Distribution Width 13.1 % (11.5-14.5) Platelet Count 230 x10^3/uL (140-400) Neutrophils (%) (Auto) 70 % (31-73) Lymphocytes (%) (Auto) 20 % (24-48) Monocytes (%) (Auto) 9 % (0-9) Eosinophils (%) (Auto) 1 % (0-3) Basophils (%) (Auto) 0 % (0-3) Neutrophils # (Auto) 8.0 x10^3uL (1.8-7.7) Lymphocytes # (Auto) 2.3 x10^3/uL (1.0-4.8) Monocytes # (Auto) 1.0 x10^3/uL (0.0-1.1) Eosinophils # (Auto) 0.1 x10^3/uL (0.0-0.7) Basophils # (Auto) 0.0 x10^3/uL (0.0-0.2) Sodium Level 141 mmol/L (136-145) Potassium Level 3.9 mmol/L (3.5-5.1) Chloride Level 105 mmol/L (98-107) Carbon Dioxide Level 27 mmol/L (21-32) Anion Gap 9 (6-14) Blood Urea Nitrogen 18 mg/dL (8-26) Creatinine 0.8 mg/dL (0.7-1.3) Estimated GFR (Cockcroft-Gault) 98.0 Glucose Level 121 mg/dL (70-99) Calcium Level 8.7 mg/dL (8.5-10.1) Laboratory Tests Test 05/28/18 06:00 White Blood Count 11.5 x10^3/uL (4.0-11.0) Red Blood Count 3.98 x10^6/uL (4.30-5.70) Hemoglobin 12.8 g/dL (13.0-17.5) Hematocrit 36.6 % (39.0-53.0) Mean Corpuscular Volume 92 fL (79-100) Mean Corpuscular Hemoglobin 32 pg (25-35) Mean Corpuscular Hemoglobin Concent 35 g/dL (31-37) Red Cell Distribution Width 13.1 % (11.5-14.5) Platelet Count 230 x10^3/uL (140-400) Neutrophils (%) (Auto) 70 % (31-73) Lymphocytes (%) (Auto) 20 % (24-48) Monocytes (%) (Auto) 9 % (0-9) Eosinophils (%) (Auto) 1 % (0-3) Basophils (%) (Auto) 0 % (0-3) Neutrophils # (Auto) 8.0 x10^3uL (1.8-7.7) Lymphocytes # (Auto) 2.3 x10^3/uL (1.0-4.8) Monocytes # (Auto) 1.0 x10^3/uL (0.0-1.1) Eosinophils # (Auto) 0.1 x10^3/uL (0.0-0.7) Basophils # (Auto) 0.0 x10^3/uL (0.0-0.2) Sodium Level 141 mmol/L (136-145) Potassium Level 3.9 mmol/L (3.5-5.1) Chloride Level 105 mmol/L (98-107) Carbon Dioxide Level 27 mmol/L (21-32) Anion Gap 9 (6-14) Blood Urea Nitrogen 18 mg/dL (8-26) Creatinine 0.8 mg/dL (0.7-1.3) Estimated GFR (Cockcroft-Gault) 98.0 Glucose Level 121 mg/dL (70-99) Calcium Level 8.7 mg/dL (8.5-10.1) Medications Active Scripts Medications Dose Route/Sig Max Daily Dose Days Date Category Atorvastatin Calcium 40 Mg Tablet 1 Tab PO DAILY 05/26/18 Reported [place] 5-325 Tablet (Acetaminophen/Hydrocodone Bitart) 1 Each Tablet 1-2 Tab PO Q4-6HRS PRN 05/07/18 Rx Aspirin 81 Mg Tab.chew 81 Mg PO DAILY 05/06/18 Reported Colace (Docusate Sodium) 100 Mg Capsule 100 Mg PO BID 05/06/18 Reported Flomax (Tamsulosin Hcl) 0.4 Mg Cap.er.24h 0.4 Mg PO DAILY 05/06/18 Reported Lisinopril 10 Mg Tablet 10 Mg PO DAILY 05/06/18 Reported Impression . 1. Acute respiratory failure secondary to acute subdural hematoma. extubated 2. Acute encephalopathy secondary to subdural hematoma.resolved 3. Status post right central craniotomy with evacuation of subdural hematoma and placement of subdural drain. 5. Clear chest x-ray. Plan . 1. Doing well on RA 2. encephalopathy resolved.. 3. oral nutrition 4. SCDs for DVT prophylaxis. 5. P.r.n. bronchodilators. 7. Discussed with export documents clerk to [facility] FLEX HARPER MD May 28, 2018 13:03
[2018-05-29 06:03] LABS: CALCIUM 9.2 mg/dL (8.5-10.1); CREATININE 0.8 mg/dL (0.7-1.3); POTASSIUM 3.8 mmol/L (3.5-5.1)
[2018-05-29 06:28] LABS: BASO % 0 % (0-3); EOS # 0.3 x10^3/uL (0.0-0.7); EOS % 3 % (0-3); HEMATOCRIT 38.5 % (39.0-53.0); HEMOGLOBIN 13.7 g/dL (13.0-17.5); LYMPH # 2.1 x10^3/uL (1.0-4.8); LYMPH % 23 % (24-48); MEAN CORPUSCULAR HEMOGLOBIN 32 pg (25-35); MEAN CORPUSCULAR HGB CONC 36 g/dL (31-37); MEAN CORPUSCULAR VOLUME 91 fL (79-100); MONO # 0.8 x10^3/uL (0.0-1.1); MONO % 9 % (0-9); NEUT # 5.8 x10^3uL (1.8-7.7); NEUT % 64 % (31-73); PLATELET COUNT 237 x10^3/uL (140-400); RED BLOOD COUNT 4.23 x10^6/uL (4.30-5.70); RED CELL DISTRIBUTION WIDTH 12.8 % (11.5-14.5)
[2018-05-29 07:00] VITALS: BP 124/74
--- NOTE | 2018-05-29 07:44 | PDOC ---
PROGRESS NOTES Chief Complaint Chief Complaint Acute respiratory failure secondary to acute subdural hematoma Acute encephalopathy secondary to subdural hematoma Status post right central craniotomy with evacuation of subdural hematoma and placement of subdural drain on 05/26 History of Present Illness History of Present Illness Pt seen and examined on medical wards Discussed with hybrid technologist facility officers at bedside He has been ambulating well with PT, good appetite, is pain free today, had BM x3, no loose bowels, feeling much better. Acute right-sided subdural hematoma with [id number] midline shift - Status post right central craniotomy with evacuation of subdural hematoma and placement of subdural drain. Pain free Acute respiratory failure secondary to acute subdural hematoma. extubated 05/27 Acute encephalopathy secondary to subdural hematoma - resolved FEN - oral nutrition PPX - SCDs for DVT prophylaxis. FULL CODE Can d/c today, will d/w neurosurgery for f/u head imaging Vitals Vitals Vital Signs Date Time Temp Pulse Resp B/P (MAP) Pulse Ox O2 Delivery O2 Flow Rate FiO2 05/28/18 20:00 Room Air 05/28/18 18:20 98.1 70 18 141/78 (99) 95 98.1 05/28/18 09:00 2.0 Physical Exam General: Alert, Cooperative, No acute distress Heart: Normal S1, Normal S2 Lungs: Clear Abdomen: Soft, No tenderness Extremities: No clubbing, No cyanosis Skin: No rashes, Other (incision clean and dry, jessica intact) Labs LABS Laboratory Tests Test 05/29/18 05:05 White Blood Count 9.0 x10^3/uL (4.0-11.0) Red Blood Count 4.23 x10^6/uL (4.30-5.70) Hemoglobin 13.7 g/dL (13.0-17.5) Hematocrit 38.5 % (39.0-53.0) Mean Corpuscular Volume 91 fL (79-100) Mean Corpuscular Hemoglobin 32 pg (25-35) Mean Corpuscular Hemoglobin Concent 36 g/dL (31-37) Red Cell Distribution Width 12.8 % (11.5-14.5) Platelet Count 237 x10^3/uL (140-400) Neutrophils (%) (Auto) 64 % (31-73) Lymphocytes (%) (Auto) 23 % (24-48) Monocytes (%) (Auto) 9 % (0-9) Eosinophils (%) (Auto) 3 % (0-3) Basophils (%) (Auto) 0 % (0-3) Neutrophils # (Auto) 5.8 x10^3uL (1.8-7.7) Lymphocytes # (Auto) 2.1 x10^3/uL (1.0-4.8) Monocytes # (Auto) 0.8 x10^3/uL (0.0-1.1) Eosinophils # (Auto) 0.3 x10^3/uL (0.0-0.7) Basophils # (Auto) 0.0 x10^3/uL (0.0-0.2) Sodium Level 139 mmol/L (136-145) Potassium Level 3.8 mmol/L (3.5-5.1) Chloride Level 103 mmol/L (98-107) Carbon Dioxide Level 27 mmol/L (21-32) Anion Gap 9 (6-14) Blood Urea Nitrogen 24 mg/dL (8-26) Creatinine 0.8 mg/dL (0.7-1.3) Estimated GFR (Cockcroft-Gault) 98.0 Glucose Level 97 mg/dL (70-99) Calcium Level 9.2 mg/dL (8.5-10.1) Assessment and Plan Assessmemt and Plan Problems Medical Problems: (1) Subdural hematoma, acute Status: Acute Comment Review of Relevant I have reviewed the following items ecsar (where applicable) has been applied. Labs Laboratory Tests Test 05/27/18 08:00 05/27/18 11:59 05/28/18 06:00 05/29/18 05:05 O2 Saturation 99 % (92-99) 99 % (92-99) Arterial Blood pH 7.49 (7.35-7.45) 7.53 (7.35-7.45) Arterial Blood pCO2 at Patient Temp 32 mmHg (35-46) 30 mmHg (35-46) Arterial Blood pO2 at Patient Temp 184 mmHg (65-108) 265 mmHg (65-108) Arterial Blood HCO3 24 mmol/L (21-28) 24 mmol/L (21-28) Arterial Blood Base Excess 1 mmol/L (-3-3) 3 mmol/L (-3-3) FiO2 40 40 White Blood Count 11.5 x10^3/uL (4.0-11.0) 9.0 x10^3/uL (4.0-11.0) Red Blood Count 3.98 x10^6/uL (4.30-5.70) 4.23 x10^6/uL (4.30-5.70) Hemoglobin 12.8 g/dL (13.0-17.5) 13.7 g/dL (13.0-17.5) Hematocrit 36.6 % (39.0-53.0) 38.5 % (39.0-53.0) Mean Corpuscular Volume 92 fL (79-100) 91 fL (79-100) Mean Corpuscular Hemoglobin 32 pg (25-35) 32 pg (25-35) Mean Corpuscular Hemoglobin Concent 35 g/dL (31-37) 36 g/dL (31-37) Red Cell Distribution Width 13.1 % (11.5-14.5) 12.8 % (11.5-14.5) Platelet Count 230 x10^3/uL (140-400) 237 x10^3/uL (140-400) Neutrophils (%) (Auto) 70 % (31-73) 64 % (31-73) Lymphocytes (%) (Auto) 20 % (24-48) 23 % (24-48) Monocytes (%) (Auto) 9 % (0-9) 9 % (0-9) Eosinophils (%) (Auto) 1 % (0-3) 3 % (0-3) Basophils (%) (Auto) 0 % (0-3) 0 % (0-3) Neutrophils # (Auto) 8.0 x10^3uL (1.8-7.7) 5.8 x10^3uL (1.8-7.7) Lymphocytes # (Auto) 2.3 x10^3/uL (1.0-4.8) 2.1 x10^3/uL (1.0-4.8) Monocytes # (Auto) 1.0 x10^3/uL (0.0-1.1) 0.8 x10^3/uL (0.0-1.1) Eosinophils # (Auto) 0.1 x10^3/uL (0.0-0.7) 0.3 x10^3/uL (0.0-0.7) Basophils # (Auto) 0.0 x10^3/uL (0.0-0.2) 0.0 x10^3/uL (0.0-0.2) Sodium Level 141 mmol/L (136-145) 139 mmol/L (136-145) Potassium Level 3.9 mmol/L (3.5-5.1) 3.8 mmol/L (3.5-5.1) Chloride Level 105 mmol/L (98-107) 103 mmol/L (98-107) Carbon Dioxide Level 27 mmol/L (21-32) 27 mmol/L (21-32) Anion Gap 9 (6-14) 9 (6-14) Blood Urea Nitrogen 18 mg/dL (8-26) 24 mg/dL (8-26) Creatinine 0.8 mg/dL (0.7-1.3) 0.8 mg/dL (0.7-1.3) Estimated GFR (Cockcroft-Gault) 98.0 98.0 Glucose Level 121 mg/dL (70-99) 97 mg/dL (70-99) Calcium Level 8.7 mg/dL (8.5-10.1) 9.2 mg/dL (8.5-10.1) Laboratory Tests Test 05/29/18 05:05 White Blood Count 9.0 x10^3/uL (4.0-11.0) Red Blood Count 4.23 x10^6/uL (4.30-5.70) Hemoglobin 13.7 g/dL (13.0-17.5) Hematocrit 38.5 % (39.0-53.0) Mean Corpuscular Volume 91 fL (79-100) Mean Corpuscular Hemoglobin 32 pg (25-35) Mean Corpuscular Hemoglobin Concent 36 g/dL (31-37) Red Cell Distribution Width 12.8 % (11.5-14.5) Platelet Count 237 x10^3/uL (140-400) Neutrophils (%) (Auto) 64 % (31-73) Lymphocytes (%) (Auto) 23 % (24-48) Monocytes (%) (Auto) 9 % (0-9) Eosinophils (%) (Auto) 3 % (0-3) Basophils (%) (Auto) 0 % (0-3) Neutrophils # (Auto) 5.8 x10^3uL (1.8-7.7) Lymphocytes # (Auto) 2.1 x10^3/uL (1.0-4.8) Monocytes # (Auto) 0.8 x10^3/uL (0.0-1.1) Eosinophils # (Auto) 0.3 x10^3/uL (0.0-0.7) Basophils # (Auto) 0.0 x10^3/uL (0.0-0.2) Sodium Level 139 mmol/L (136-145) Potassium Level 3.8 mmol/L (3.5-5.1) Chloride Level 103 mmol/L (98-107) Carbon Dioxide Level 27 mmol/L (21-32) Anion Gap 9 (6-14) Blood Urea Nitrogen 24 mg/dL (8-26) Creatinine 0.8 mg/dL (0.7-1.3) Estimated GFR (Cockcroft-Gault) 98.0 Glucose Level 97 mg/dL (70-99) Calcium Level 9.2 mg/dL (8.5-10.1) Medications Current Medications Labetalol HCl (Normodyne Iv Push) 20 mg 1X ONCE IVP ; Start 05/26/18 at 00:30 ; Stop 05/26/18 at 01:35; Status DC Etomidate (Amidate) 20 mg 1X ONCE IV Last administered on 05/26/18at 00:23; Start 05/26/18 at 00:30; Stop 05/26/18 at 00:31; Status DC Rocuronium [place] (Zemuron) 50 mg 1X ONCE IV Last administered on 05/26/18at 00:23; Start 05/26/18 at 00:30; Stop 05/26/18 at 00:31; Status DC Propofol 50 ml @ As Directed STK-MED ONCE IV ; Start 05/26/18 at 00:27; Stop 05/26/18 at 00:28; Status DC Propofol 100 ml @ 0 mls/hr CONT PRN IV PER PROTOCOL Last administered on at 00:04; Start 05/26/18 at 00:30 Chlorhexidine Gluconate (Peridex) 15 ml BID MM Last administered on 05/26/18at 08:43; Start 05/26/18 at 09:00; Stop 05/27/18 at 21:28; Status DC Labetalol HCl (Normodyne Iv Push) 20 mg 1X ONCE IVP ; Start 05/26/18 at 01:30 ; Stop 05/26/18 at 01:35; Status DC Labetalol HCl (Normodyne Iv Push) 20 mg STK-MED ONCE IVP ; Start 05/26/18 at 01 :02; Stop 05/26/18 at 01:35; Status DC Bacitracin 70088 unit/Sodium Chloride 1,000 ml @ 1,000 mls/hr 1X ONCE IRR ; Start 05/26/18 at 02:00; Stop 05/26/18 at 02:59; Status DC Gelatin (Gelfoam Size 100) 1 each STK-MED ONCE .ROUTE Last administered on at 02:19; Start 05/26/18 at 00:13; Stop 05/26/18 at 01:14; Status DC Bupivacaine HCl/ Epinephrine Bitart (Sensorcain-Mpf Epi 0.5%-1:201390) 30 ml STK -MED ONCE .ROUTE Last administered on 05/26/18at 02:19; Start 05/26/18 at 00: 13; Stop 05/26/18 at 01:14; Status DC Mannitol (Mannitol) 12.5 g STK-MED ONCE .ROUTE ; Start 05/26/18 at 00:13; Stop 05/26/18 at 01:14; Status DC Cellulose (Surgicel Hemostat 4x8) 1 each STK-MED ONCE .ROUTE ; Start 05/26/18 at 00:13; Stop 05/26/18 at 01:14; Status DC Thrombin 20,000 unit STK-MED ONCE TP Last administered on 05/26/18at 02:19; Start 05/26/18 at 00:14; Stop 05/26/18 at 01:14; Status DC Rocuronium [place] (Zemuron) 50 mg STK-MED ONCE .ROUTE ; Start 05/26/18 at 01: 16; Stop 05/26/18 at 01:17; Status DC Fentanyl Citrate (Fentanyl 2ml Vial) 100 mcg STK-MED ONCE .ROUTE ; Start at 01:17; Stop 05/26/18 at 01:18; Status DC Mannitol (Mannitol) 12.5 g STK-MED ONCE .ROUTE ; Start 05/26/18 at 00:20; Stop 05/26/18 at 01:20; Status DC Labetalol HCl (Normodyne Iv Push) 5 mg 1X ONCE IVP Last administered on at 01:20; Start 05/26/18 at 02:00; Stop 05/26/18 at 02:01; Status DC Sevoflurane (Ultane) 60 ml STK-MED ONCE IH ; Start 05/26/18 at 01:58; Stop at 01:59; Status DC Rocuronium [place] (Zemuron) 50 mg STK-MED ONCE .ROUTE ; Start 05/26/18 at 01: 58; Stop 05/26/18 at 01:59; Status DC Cefazolin Sodium (Ancef) 1 gm STK-MED ONCE .ROUTE ; Start 05/26/18 at 02:01; Stop 05/26/18 at 02:02; Status DC Cefazolin Sodium (Ancef) 1 gm STK-MED ONCE .ROUTE ; Start 05/26/18 at 02:01; Stop 05/26/18 at 02:02; Status DC Dexamethasone Sodium Phosphate (Decadron) 20 mg STK-MED ONCE .ROUTE ; Start at 03:11; Stop 05/26/18 at 03:12; Status DC Ondansetron HCl (Zofran) 4 mg STK-MED ONCE .ROUTE ; Start 05/26/18 at 03:11; Stop 05/26/18 at 03:12; Status DC Labetalol HCl (Normodyne Iv Push) 20 mg STK-MED ONCE IVP ; Start 05/26/18 at 03 :11; Stop 05/26/18 at 03:12; Status DC Fentanyl Citrate (Fentanyl 2ml Vial) 100 mcg STK-MED ONCE .ROUTE ; Start at 03:13; Stop 05/26/18 at 03:14; Status DC Nicardipine HCl 50 mg/Sodium Chloride 270 ml @ 27 mls/hr CONT PRN IV SEE I/O RECORD Last administered on 05/28/18at 00:07; Start 05/26/18 at 03:45 Cefazolin Sodium/ Dextrose 50 ml @ 100 mls/hr Q8HRS IV Last administered on at 05:35; Start 05/26/18 at 08:30; Stop 05/28/18 at 10:19; Status DC Ringer's Solution 1,000 ml @ 100 mls/hr Q10H IV Last administered on at 10:14; Start 05/26/18 at 10:00; Stop 05/26/18 at 10:51; Status DC Potassium Chloride/Dextrose/ Sod Cl 1,000 ml @ 75 mls/hr [id number] IV Last administered on 05/28/18at 05:34; Start 05/26/18 at 11:00; Stop 05/28/18 at 17: 11; Status DC Fentanyl Citrate (Fentanyl 2ml Vial) 50 mcg PRN Q2HR PRN IV SEVERE PAIN Last administered on 05/26/18at 22:34; Start 05/26/18 at 21:45 Acetaminophen/ Hydrocodone Bitart (Lortab 5/325) 1 tab PRN Q4HRS PRN PO MILD- MODERATE PAIN; Start 05/28/18 at 10:30 Acetaminophen/ Hydrocodone Bitart (Lortab 5/325) 2 tab PRN Q4HRS PRN PO SEVERE PAIN; Start 05/28/18 at 10:30 Active Scripts Active [place] 5-325 Tablet (Acetaminophen/Hydrocodone Bitart) 1 Each Tablet 1-2 Tab PO Q4-6HRS PRN Reported Atorvastatin Calcium 40 Mg Tablet 1 Tab PO DAILY Aspirin 81 Mg Tab.chew 81 Mg PO DAILY Colace (Docusate Sodium) 100 Mg Capsule 100 Mg PO BID Flomax (Tamsulosin Hcl) 0.4 Mg Cap.er.24h 0.4 Mg PO DAILY Lisinopril 10 Mg Tablet 10 Mg PO DAILY Vitals/I & O Vital Sign - Last 24 Hours 05/28/18 05/28/18 05/28/18 05/28/18 08:00 08:00 08:00 09:00 Temp 99.4 99.4 Pulse 68 72 Resp 16 16 B/P (MAP) 132/60 (84) 148/68 (94) Pulse Ox 100 99 O2 Delivery Nasal Cannula Nasal Cannula Nasal Cannula O2 Flow Rate 2.0 2.0 2.0 05/28/18 05/28/18 05/28/18 05/28/18 10:00 11:00 12:00 12:00 Temp 98.5 98.5 Pulse 75 79 69 Resp 16 16 16 B/P (MAP) 147/68 (94) 145/63 (90) 130/76 (94) Pulse Ox 100 99 97 O2 Delivery Room Air Room Air Room Air 05/28/18 05/28/18 05/28/18 05/28/18 16:00 16:00 18:20 20:00 Temp 99.7 98.1 99.7 98.1 Pulse 70 70 Resp 16 18 B/P (MAP) 142/83 (102) 141/78 (99) Pulse Ox 98 95 O2 Delivery Room Air Room Air Room Air Intake and Output 05/28/18 05/28/18 05/29/18 15:00 23:00 07:00 Intake Total 200 ml 620 ml Output Total 550 ml 250 ml Balance -550 ml -50 ml 620 ml HONEY MCKEON MD May 29, 2018 07:44
--- NOTE | 2018-05-29 09:42 | PDOC3 ---
Discharge Summary Visit Information Date of Admission: May 26, 2018 Date of Discharge: May 29, 2018 Admitting Diagnosis: Subdural hematoma Final Diagnosis Problems Medical Problems: (1) Subdural hematoma, acute Status: Acute Brief Hospital Course Allergies Allergies Coded Allergies Type Severity Reaction Last Updated Verified No Known Drug Allergies 05/07/18 No Vital Signs Vital Signs Date Time Temp Pulse Resp B/P (MAP) Pulse Ox O2 Delivery O2 Flow Rate FiO2 05/29/18 07:00 99.1 72 16 124/74 (91) 95 Room Air 99.1 05/28/18 09:00 2.0 Lab Results Laboratory Tests Test 05/27/18 11:59 05/28/18 06:00 05/29/18 05:05 O2 Saturation 99 % (92-99) Arterial Blood pH 7.53 (7.35-7.45) Arterial Blood pCO2 at Patient Temp 30 mmHg (35-46) Arterial Blood pO2 at Patient Temp 265 mmHg (65-108) Arterial Blood HCO3 24 mmol/L (21-28) Arterial Blood Base Excess 3 mmol/L (-3-3) FiO2 40 White Blood Count 11.5 x10^3/uL (4.0-11.0) 9.0 x10^3/uL (4.0-11.0) Red Blood Count 3.98 x10^6/uL (4.30-5.70) 4.23 x10^6/uL (4.30-5.70) Hemoglobin 12.8 g/dL (13.0-17.5) 13.7 g/dL (13.0-17.5) Hematocrit 36.6 % (39.0-53.0) 38.5 % (39.0-53.0) Mean Corpuscular Volume 92 fL (79-100) 91 fL (79-100) Mean Corpuscular Hemoglobin 32 pg (25-35) 32 pg (25-35) Mean Corpuscular Hemoglobin Concent 35 g/dL (31-37) 36 g/dL (31-37) Red Cell Distribution Width 13.1 % (11.5-14.5) 12.8 % (11.5-14.5) Platelet Count 230 x10^3/uL (140-400) 237 x10^3/uL (140-400) Neutrophils (%) (Auto) 70 % (31-73) 64 % (31-73) Lymphocytes (%) (Auto) 20 % (24-48) 23 % (24-48) Monocytes (%) (Auto) 9 % (0-9) 9 % (0-9) Eosinophils (%) (Auto) 1 % (0-3) 3 % (0-3) Basophils (%) (Auto) 0 % (0-3) 0 % (0-3) Neutrophils # (Auto) 8.0 x10^3uL (1.8-7.7) 5.8 x10^3uL (1.8-7.7) Lymphocytes # (Auto) 2.3 x10^3/uL (1.0-4.8) 2.1 x10^3/uL (1.0-4.8) Monocytes # (Auto) 1.0 x10^3/uL (0.0-1.1) 0.8 x10^3/uL (0.0-1.1) Eosinophils # (Auto) 0.1 x10^3/uL (0.0-0.7) 0.3 x10^3/uL (0.0-0.7) Basophils # (Auto) 0.0 x10^3/uL (0.0-0.2) 0.0 x10^3/uL (0.0-0.2) Sodium Level 141 mmol/L (136-145) 139 mmol/L (136-145) Potassium Level 3.9 mmol/L (3.5-5.1) 3.8 mmol/L (3.5-5.1) Chloride Level 105 mmol/L (98-107) 103 mmol/L (98-107) Carbon Dioxide Level 27 mmol/L (21-32) 27 mmol/L (21-32) Anion Gap 9 (6-14) 9 (6-14) Blood Urea Nitrogen 18 mg/dL (8-26) 24 mg/dL (8-26) Creatinine 0.8 mg/dL (0.7-1.3) 0.8 mg/dL (0.7-1.3) Estimated GFR (Cockcroft-Gault) 98.0 98.0 Glucose Level 121 mg/dL (70-99) 97 mg/dL (70-99) Calcium Level 8.7 mg/dL (8.5-10.1) 9.2 mg/dL (8.5-10.1) Laboratory Tests Test 05/29/18 05:05 White Blood Count 9.0 x10^3/uL (4.0-11.0) Red Blood Count 4.23 x10^6/uL (4.30-5.70) Hemoglobin 13.7 g/dL (13.0-17.5) Hematocrit 38.5 % (39.0-53.0) Mean Corpuscular Volume 91 fL (79-100) Mean Corpuscular Hemoglobin 32 pg (25-35) Mean Corpuscular Hemoglobin Concent 36 g/dL (31-37) Red Cell Distribution Width 12.8 % (11.5-14.5) Platelet Count 237 x10^3/uL (140-400) Neutrophils (%) (Auto) 64 % (31-73) Lymphocytes (%) (Auto) 23 % (24-48) Monocytes (%) (Auto) 9 % (0-9) Eosinophils (%) (Auto) 3 % (0-3) Basophils (%) (Auto) 0 % (0-3) Neutrophils # (Auto) 5.8 x10^3uL (1.8-7.7) Lymphocytes # (Auto) 2.1 x10^3/uL (1.0-4.8) Monocytes # (Auto) 0.8 x10^3/uL (0.0-1.1) Eosinophils # (Auto) 0.3 x10^3/uL (0.0-0.7) Basophils # (Auto) 0.0 x10^3/uL (0.0-0.2) Sodium Level 139 mmol/L (136-145) Potassium Level 3.8 mmol/L (3.5-5.1) Chloride Level 103 mmol/L (98-107) Carbon Dioxide Level 27 mmol/L (21-32) Anion Gap 9 (6-14) Blood Urea Nitrogen 24 mg/dL (8-26) Creatinine 0.8 mg/dL (0.7-1.3) Estimated GFR (Cockcroft-Gault) 98.0 Glucose Level 97 mg/dL (70-99) Calcium Level 9.2 mg/dL (8.5-10.1) Brief Hospital Course Admitted with confusion to the ED, initially suspected for STEMI, however on CT head was noted with moderate size acute subdural hematoma on the right lateral to the temporal and frontal lobes. It measures as great as 1.6 centimeters in thickness and results in significant 1.5 cm right to left midline shift. There is no hydrocephalus. There is no hypoattenuation to suggest acute ischemia. There is opacification of the left maxillary sinus and fluid in the right maxillary sinus and left ethmoid air cells and sphenoid sinus He continued to decline and had Acute respiratory failure secondary to acute subdural hematoma, required intubation and ICU admission. Status post right central craniotomy with evacuation of subdural hematoma and placement of subdural drain on 05/26. Pt seen and examined on medical wards with improvement Status post right central craniotomy with evacuation of subdural hematoma and placement of subdural drain. Pain free. Was still unsteady on his feet per PT, but improved and pain free and his initial confusion had cleared to his baseline. Discussed with engineering technician facility officers at bedside He has been ambulating well with PT, good appetite, is pain free today, had BM x3, no loose bowels, feeling much better. Acute right-sided subdural hematoma with [id number] midline shift - Status post right central craniotomy with evacuation of subdural hematoma and placement of subdural drain. Pain free Acute respiratory failure secondary to acute subdural hematoma. extubated 05/27 Acute encephalopathy secondary to subdural hematoma - resolved FEN - oral nutrition PPX - SCDs for DVT prophylaxis. FULL CODE Can d/c today, will d/w neurosurgery for f/u head imaging in 2 weeks and office follow up with Dr. Teran Discharge Information Condition at Discharge: Improved Follow Up: Weeks (2) Disposition/Orders: D/C to Another Facility ([facility]), Instructions/Orders (F/u CT head in [address] Teran office as well) Scheduled Atorvastatin Calcium (Atorvastatin Calcium) 40 Mg Tablet, 1 TAB PO DAILY, #30 Ref 5 (Reported) Entered as Reported by: DELISA CINTRON on 05/26/1819 Last Action: New Order on 05/26/1819 by DELISA CINTRON Docusate Sodium (Colace) 100 Mg Capsule, 100 MG PO BID, (Reported) Entered as Reported by: RADHA JEAN on 10/10/18 1411 Lisinopril (Lisinopril) 10 Mg Tablet, 10 MG PO DAILY for FOR HYPERTENSION, #30 Ref 0 (Reported) Entered as Reported by: RADHA JEAN on 05/06/181410 Tamsulosin Hcl (Flomax) 0.4 Mg Cap.er.24h, 0.4 MG PO DAILY, (Reported) Entered as Reported by: RADHA JEAN on 05/06/181410 Discontinued Medications Aspirin (Aspirin) 81 Mg Tab.chew, 81 MG PO DAILY, (Reported) Entered as Reported by: RADHA JEAN on 05/06/181410 Hydrocodone/Apap 5-325 ([place] 5-325 Tablet) 1 Each Tablet, 1-2 TAB PO Q4-6HRS PRN for PAIN, #40 Prescribed by: Harry Fraser on 05/07/18 0939 HONEY MCKEON MD May 29, 2018 09:42
--- NOTE | 2018-05-29 09:50 | DISCH ---
DISCHARGE DISCHARGE INFORMATION: DISCHARGE DATE: May 29, 2018 FINAL DIAGNOSIS Problems Medical Problems: (1) Subdural hematoma, acute Status: Acute CONDITION ON DISCHARGE: Stable CODE STATUS: Code Status: Full GROUP HOME: SNF STAY <30 DAYS: No HOSPICE: HOSPICE: No HOSPICE EVAL & TREAT: No LTAC: ADMIT TO LTAC: No POST DISCHARGE ORDERS: ACTIVITY ORDERS: Avoid exertion BATHING ORDERS: Shower-keep dressing dry DIET AFTER DISCHARGE: Regular WOUND/INCISION CARE: Reinforce dressing PRN OTHER WOUND INSTRUCTIONS: Staple removal 7-10 days from 05/26/18 FOLLOW-UP: PHYSICIAN FOLLOW-UP: Dr. Teran - neurosurgery 2-4 weeks ADDITIONAL FOLLOW-UP: CT head in 2-4 weeks - to Dr. Teran TREATMENT/EQUIPMENT ORDERS: Physical Therapy For: Evalulation/Treatment Occupational Therapy For: Evaluation/Treatment DISCHARGE MEDICATIONS: Home Meds Active Scripts Hydrocodone/Apap 5-325 ([place] 5-325 TABLET) 1 Each Tablet, 1-2 TAB PO Q4-6HRS PRN for PAIN, #40 TAB Prov:ROBIN LAU MD 05/07/18 Reported Medications Atorvastatin Calcium (ATORVASTATIN CALCIUM) 40 Mg Tablet, 1 TAB PO DAILY, #30 TAB 5 Refills 05/26/18 Aspirin (ASPIRIN) 81 Mg Tab.chew, 81 MG PO DAILY, TAB.CHEW 05/06/18 Docusate Sodium (COLACE) 100 Mg Capsule, 100 MG PO BID, CAP 05/06/18 Tamsulosin Hcl (FLOMAX) 0.4 Mg Cap.er.24h, 0.4 MG PO DAILY, TAB 05/06/18 Lisinopril (LISINOPRIL) 10 Mg Tablet, 10 MG PO DAILY for FOR HYPERTENSION, #30 TAB 0 Refills 05/06/18 HONEY MCKEON MD May 29, 2018 09:50
--- NOTE | 2018-05-29 10:44 | PDOC ---
PULMONARY PROGRESS NOTES Subjective doing well since extubation on RA Vitals Vital Signs Date Time Temp Pulse Resp B/P (MAP) Pulse Ox O2 Delivery O2 Flow Rate FiO2 05/29/18 07:00 99.1 72 16 124/74 (91) 95 Room Air 99.1 05/28/18 09:00 2.0 General: Alert, No acute distress Lungs: Clear Cardiovascular: S1 Abdomen: Soft Neuro Exam: Alert Extremities: No Edema Skin: Warm Labs Laboratory Tests Test 05/27/18 11:59 05/28/18 06:00 05/29/18 05:05 O2 Saturation 99 % (92-99) Arterial Blood pH 7.53 (7.35-7.45) Arterial Blood pCO2 at Patient Temp 30 mmHg (35-46) Arterial Blood pO2 at Patient Temp 265 mmHg (65-108) Arterial Blood HCO3 24 mmol/L (21-28) Arterial Blood Base Excess 3 mmol/L (-3-3) FiO2 40 White Blood Count 11.5 x10^3/uL (4.0-11.0) 9.0 x10^3/uL (4.0-11.0) Red Blood Count 3.98 x10^6/uL (4.30-5.70) 4.23 x10^6/uL (4.30-5.70) Hemoglobin 12.8 g/dL (13.0-17.5) 13.7 g/dL (13.0-17.5) Hematocrit 36.6 % (39.0-53.0) 38.5 % (39.0-53.0) Mean Corpuscular Volume 92 fL (79-100) 91 fL (79-100) Mean Corpuscular Hemoglobin 32 pg (25-35) 32 pg (25-35) Mean Corpuscular Hemoglobin Concent 35 g/dL (31-37) 36 g/dL (31-37) Red Cell Distribution Width 13.1 % (11.5-14.5) 12.8 % (11.5-14.5) Platelet Count 230 x10^3/uL (140-400) 237 x10^3/uL (140-400) Neutrophils (%) (Auto) 70 % (31-73) 64 % (31-73) Lymphocytes (%) (Auto) 20 % (24-48) 23 % (24-48) Monocytes (%) (Auto) 9 % (0-9) 9 % (0-9) Eosinophils (%) (Auto) 1 % (0-3) 3 % (0-3) Basophils (%) (Auto) 0 % (0-3) 0 % (0-3) Neutrophils # (Auto) 8.0 x10^3uL (1.8-7.7) 5.8 x10^3uL (1.8-7.7) Lymphocytes # (Auto) 2.3 x10^3/uL (1.0-4.8) 2.1 x10^3/uL (1.0-4.8) Monocytes # (Auto) 1.0 x10^3/uL (0.0-1.1) 0.8 x10^3/uL (0.0-1.1) Eosinophils # (Auto) 0.1 x10^3/uL (0.0-0.7) 0.3 x10^3/uL (0.0-0.7) Basophils # (Auto) 0.0 x10^3/uL (0.0-0.2) 0.0 x10^3/uL (0.0-0.2) Sodium Level 141 mmol/L (136-145) 139 mmol/L (136-145) Potassium Level 3.9 mmol/L (3.5-5.1) 3.8 mmol/L (3.5-5.1) Chloride Level 105 mmol/L (98-107) 103 mmol/L (98-107) Carbon Dioxide Level 27 mmol/L (21-32) 27 mmol/L (21-32) Anion Gap 9 (6-14) 9 (6-14) Blood Urea Nitrogen 18 mg/dL (8-26) 24 mg/dL (8-26) Creatinine 0.8 mg/dL (0.7-1.3) 0.8 mg/dL (0.7-1.3) Estimated GFR (Cockcroft-Gault) 98.0 98.0 Glucose Level 121 mg/dL (70-99) 97 mg/dL (70-99) Calcium Level 8.7 mg/dL (8.5-10.1) 9.2 mg/dL (8.5-10.1) Laboratory Tests Test 05/29/18 05:05 White Blood Count 9.0 x10^3/uL (4.0-11.0) Red Blood Count 4.23 x10^6/uL (4.30-5.70) Hemoglobin 13.7 g/dL (13.0-17.5) Hematocrit 38.5 % (39.0-53.0) Mean Corpuscular Volume 91 fL (79-100) Mean Corpuscular Hemoglobin 32 pg (25-35) Mean Corpuscular Hemoglobin Concent 36 g/dL (31-37) Red Cell Distribution Width 12.8 % (11.5-14.5) Platelet Count 237 x10^3/uL (140-400) Neutrophils (%) (Auto) 64 % (31-73) Lymphocytes (%) (Auto) 23 % (24-48) Monocytes (%) (Auto) 9 % (0-9) Eosinophils (%) (Auto) 3 % (0-3) Basophils (%) (Auto) 0 % (0-3) Neutrophils # (Auto) 5.8 x10^3uL (1.8-7.7) Lymphocytes # (Auto) 2.1 x10^3/uL (1.0-4.8) Monocytes # (Auto) 0.8 x10^3/uL (0.0-1.1) Eosinophils # (Auto) 0.3 x10^3/uL (0.0-0.7) Basophils # (Auto) 0.0 x10^3/uL (0.0-0.2) Sodium Level 139 mmol/L (136-145) Potassium Level 3.8 mmol/L (3.5-5.1) Chloride Level 103 mmol/L (98-107) Carbon Dioxide Level 27 mmol/L (21-32) Anion Gap 9 (6-14) Blood Urea Nitrogen 24 mg/dL (8-26) Creatinine 0.8 mg/dL (0.7-1.3) Estimated GFR (Cockcroft-Gault) 98.0 Glucose Level 97 mg/dL (70-99) Calcium Level 9.2 mg/dL (8.5-10.1) Medications Active Scripts Medications Dose Route/Sig Max Daily Dose Days Date Category Atorvastatin Calcium 40 Mg Tablet 1 Tab PO DAILY 05/26/18 Reported [place] 5-325 Tablet (Acetaminophen/Hydrocodone Bitart) 1 Each Tablet 1-2 Tab PO Q4-6HRS PRN 05/07/18 Rx Aspirin 81 Mg Tab.chew 81 Mg PO DAILY 05/06/18 Reported Colace (Docusate Sodium) 100 Mg Capsule 100 Mg PO BID 05/06/18 Reported Flomax (Tamsulosin Hcl) 0.4 Mg Cap.er.24h 0.4 Mg PO DAILY 05/06/18 Reported Lisinopril 10 Mg Tablet 10 Mg PO DAILY 05/06/18 Reported Impression . 1. Acute respiratory failure secondary to acute subdural hematoma. extubated 2. Acute encephalopathy secondary to subdural hematoma.resolved 3. Status post right central craniotomy with evacuation of subdural hematoma and placement of subdural drain. 5. Clear chest x-ray on admit Plan . 1. Doing well on RA 2. encephalopathy resolved.. 3. oral nutrition 4. SCDs for DVT prophylaxis. 5. P.r.n. bronchodilators. 7. will sign off FLEX HARPER MD May 29, 2018 10:44
[2018-05-29 11:06] VITALS: BP 124/69
--- NOTE | 2018-05-29 12:13 | PDOC ---
PROGRESS NOTES Subjective Subjective sitting up in bed feels good mild headache Objective Objective Vital Signs Date Time Temp Pulse Resp B/P (MAP) Pulse Ox O2 Delivery O2 Flow Rate FiO2 05/29/18 11:06 98.5 71 16 124/69 (87) 96 Room Air 98.5 05/28/18 09:00 2.0 Intake and Output 05/29/18 07:00 Intake Total 820 ml Output Total 800 ml Balance 20 ml Intake Oral 820 ml Output Urine Total 800 ml # Voids 5 # Bowel Movements 1 Physical Exam General: Alert, Oriented X3, Cooperative, No acute distress MUSCULOSKELETAL: Other (HURT) Neuro: Normal speech Skin: Other (Incision dry, jessica intact) Assessment Assessment Problems Medical Problems: (1) Subdural hematoma, acute Status: Acute Plan Plan of Care may dc today will make arrangements for f/u CT head in 7 to 10 days Comment Review of Relevant I have reviewed the following items cesar (where applicable) has been applied. Labs Laboratory Tests Test 05/28/18 06:00 05/29/18 05:05 White Blood Count 11.5 x10^3/uL (4.0-11.0) 9.0 x10^3/uL (4.0-11.0) Red Blood Count 3.98 x10^6/uL (4.30-5.70) 4.23 x10^6/uL (4.30-5.70) Hemoglobin 12.8 g/dL (13.0-17.5) 13.7 g/dL (13.0-17.5) Hematocrit 36.6 % (39.0-53.0) 38.5 % (39.0-53.0) Mean Corpuscular Volume 92 fL (79-100) 91 fL (79-100) Mean Corpuscular Hemoglobin 32 pg (25-35) 32 pg (25-35) Mean Corpuscular Hemoglobin Concent 35 g/dL (31-37) 36 g/dL (31-37) Red Cell Distribution Width 13.1 % (11.5-14.5) 12.8 % (11.5-14.5) Platelet Count 230 x10^3/uL (140-400) 237 x10^3/uL (140-400) Neutrophils (%) (Auto) 70 % (31-73) 64 % (31-73) Lymphocytes (%) (Auto) 20 % (24-48) 23 % (24-48) Monocytes (%) (Auto) 9 % (0-9) 9 % (0-9) Eosinophils (%) (Auto) 1 % (0-3) 3 % (0-3) Basophils (%) (Auto) 0 % (0-3) 0 % (0-3) Neutrophils # (Auto) 8.0 x10^3uL (1.8-7.7) 5.8 x10^3uL (1.8-7.7) Lymphocytes # (Auto) 2.3 x10^3/uL (1.0-4.8) 2.1 x10^3/uL (1.0-4.8) Monocytes # (Auto) 1.0 x10^3/uL (0.0-1.1) 0.8 x10^3/uL (0.0-1.1) Eosinophils # (Auto) 0.1 x10^3/uL (0.0-0.7) 0.3 x10^3/uL (0.0-0.7) Basophils # (Auto) 0.0 x10^3/uL (0.0-0.2) 0.0 x10^3/uL (0.0-0.2) Sodium Level 141 mmol/L (136-145) 139 mmol/L (136-145) Potassium Level 3.9 mmol/L (3.5-5.1) 3.8 mmol/L (3.5-5.1) Chloride Level 105 mmol/L (98-107) 103 mmol/L (98-107) Carbon Dioxide Level 27 mmol/L (21-32) 27 mmol/L (21-32) Anion Gap 9 (6-14) 9 (6-14) Blood Urea Nitrogen 18 mg/dL (8-26) 24 mg/dL (8-26) Creatinine 0.8 mg/dL (0.7-1.3) 0.8 mg/dL (0.7-1.3) Estimated GFR (Cockcroft-Gault) 98.0 98.0 Glucose Level 121 mg/dL (70-99) 97 mg/dL (70-99) Calcium Level 8.7 mg/dL (8.5-10.1) 9.2 mg/dL (8.5-10.1) Laboratory Tests Test 05/29/18 05:05 White Blood Count 9.0 x10^3/uL (4.0-11.0) Red Blood Count 4.23 x10^6/uL (4.30-5.70) Hemoglobin 13.7 g/dL (13.0-17.5) Hematocrit 38.5 % (39.0-53.0) Mean Corpuscular Volume 91 fL (79-100) Mean Corpuscular Hemoglobin 32 pg (25-35) Mean Corpuscular Hemoglobin Concent 36 g/dL (31-37) Red Cell Distribution Width 12.8 % (11.5-14.5) Platelet Count 237 x10^3/uL (140-400) Neutrophils (%) (Auto) 64 % (31-73) Lymphocytes (%) (Auto) 23 % (24-48) Monocytes (%) (Auto) 9 % (0-9) Eosinophils (%) (Auto) 3 % (0-3) Basophils (%) (Auto) 0 % (0-3) Neutrophils # (Auto) 5.8 x10^3uL (1.8-7.7) Lymphocytes # (Auto) 2.1 x10^3/uL (1.0-4.8) Monocytes # (Auto) 0.8 x10^3/uL (0.0-1.1) Eosinophils # (Auto) 0.3 x10^3/uL (0.0-0.7) Basophils # (Auto) 0.0 x10^3/uL (0.0-0.2) Sodium Level 139 mmol/L (136-145) Potassium Level 3.8 mmol/L (3.5-5.1) Chloride Level 103 mmol/L (98-107) Carbon Dioxide Level 27 mmol/L (21-32) Anion Gap 9 (6-14) Blood Urea Nitrogen 24 mg/dL (8-26) Creatinine 0.8 mg/dL (0.7-1.3) Estimated GFR (Cockcroft-Gault) 98.0 Glucose Level 97 mg/dL (70-99) Calcium Level 9.2 mg/dL (8.5-10.1) Medications Current Medications Labetalol HCl (Normodyne Iv Push) 20 mg 1X ONCE IVP ; Start 05/26/18 at 00:30 ; Stop 05/26/18 at 01:35; Status DC Etomidate (Amidate) 20 mg 1X ONCE IV Last administered on 05/26/18at 00:23; Start 05/26/18 at 00:30; Stop 05/26/18 at 00:31; Status DC Rocuronium [place] (Zemuron) 50 mg 1X ONCE IV Last administered on 05/26/18at 00:23; Start 05/26/18 at 00:30; Stop 05/26/18 at 00:31; Status DC Propofol 50 ml @ As Directed STK-MED ONCE IV ; Start 05/26/18 at 00:27; Stop 05/26/18 at 00:28; Status DC Propofol 100 ml @ 0 mls/hr CONT PRN IV PER PROTOCOL Last administered on at 00:04; Start 05/26/18 at 00:30; Stop 05/29/18 at 09:42; Status DC Chlorhexidine Gluconate (Peridex) 15 ml BID MM Last administered on 05/26/18at 08:43; Start 05/26/18 at 09:00; Stop 05/27/18 at 21:28; Status DC Labetalol HCl (Normodyne Iv Push) 20 mg 1X ONCE IVP ; Start 05/26/18 at 01:30 ; Stop 05/26/18 at 01:35; Status DC Labetalol HCl (Normodyne Iv Push) 20 mg STK-MED ONCE IVP ; Start 05/26/18 at 01 :02; Stop 05/26/18 at 01:35; Status DC Bacitracin 65239 unit/Sodium Chloride 1,000 ml @ 1,000 mls/hr 1X ONCE IRR ; Start 05/26/18 at 02:00; Stop 05/26/18 at 02:59; Status DC Gelatin (Gelfoam Size 100) 1 each STK-MED ONCE .ROUTE Last administered on at 02:19; Start 05/26/18 at 00:13; Stop 05/26/18 at 01:14; Status DC Bupivacaine HCl/ Epinephrine Bitart (Sensorcain-Mpf Epi 0.5%-1:805493) 30 ml STK -MED ONCE .ROUTE Last administered on 05/26/18at 02:19; Start 05/26/18 at 00: 13; Stop 05/26/18 at 01:14; Status DC Mannitol (Mannitol) 12.5 g STK-MED ONCE .ROUTE ; Start 05/26/18 at 00:13; Stop 05/26/18 at 01:14; Status DC Cellulose (Surgicel Hemostat 4x8) 1 each STK-MED ONCE .ROUTE ; Start 05/26/18 at 00:13; Stop 05/26/18 at 01:14; Status DC Thrombin 20,000 unit STK-MED ONCE TP Last administered on 05/26/18at 02:19; Start 05/26/18 at 00:14; Stop 05/26/18 at 01:14; Status DC Rocuronium [place] (Zemuron) 50 mg STK-MED ONCE .ROUTE ; Start 05/26/18 at 01: 16; Stop 05/26/18 at 01:17; Status DC Fentanyl Citrate (Fentanyl 2ml Vial) 100 mcg STK-MED ONCE .ROUTE ; Start at 01:17; Stop 05/26/18 at 01:18; Status DC Mannitol (Mannitol) 12.5 g STK-MED ONCE .ROUTE ; Start 05/26/18 at 00:20; Stop 05/26/18 at 01:20; Status DC Labetalol HCl (Normodyne Iv Push) 5 mg 1X ONCE IVP Last administered on at 01:20; Start 05/26/18 at 02:00; Stop 05/26/18 at 02:01; Status DC Sevoflurane (Ultane) 60 ml STK-MED ONCE IH ; Start 05/26/18 at 01:58; Stop at 01:59; Status DC Rocuronium [place] (Zemuron) 50 mg STK-MED ONCE .ROUTE ; Start 05/26/18 at 01: 58; Stop 05/26/18 at 01:59; Status DC Cefazolin Sodium (Ancef) 1 gm STK-MED ONCE .ROUTE ; Start 05/26/18 at 02:01; Stop 05/26/18 at 02:02; Status DC Cefazolin Sodium (Ancef) 1 gm STK-MED ONCE .ROUTE ; Start 05/26/18 at 02:01; Stop 05/26/18 at 02:02; Status DC Dexamethasone Sodium Phosphate (Decadron) 20 mg STK-MED ONCE .ROUTE ; Start at 03:11; Stop 05/26/18 at 03:12; Status DC Ondansetron HCl (Zofran) 4 mg STK-MED ONCE .ROUTE ; Start 05/26/18 at 03:11; Stop 05/26/18 at 03:12; Status DC Labetalol HCl (Normodyne Iv Push) 20 mg STK-MED ONCE IVP ; Start 05/26/18 at 03 :11; Stop 05/26/18 at 03:12; Status DC Fentanyl Citrate (Fentanyl 2ml Vial) 100 mcg STK-MED ONCE .ROUTE ; Start at 03:13; Stop 05/26/18 at 03:14; Status DC Nicardipine HCl 50 mg/Sodium Chloride 270 ml @ 27 mls/hr CONT PRN IV SEE I/O RECORD Last administered on 05/28/18at 00:07; Start 05/26/18 at 03:45; Stop 05/29/18 at 09:42; Status DC Cefazolin Sodium/ Dextrose 50 ml @ 100 mls/hr Q8HRS IV Last administered on at 05:35; Start 05/26/18 at 08:30; Stop 05/28/18 at 10:19; Status DC Ringer's Solution 1,000 ml @ 100 mls/hr Q10H IV Last administered on at 10:14; Start 05/26/18 at 10:00; Stop 05/26/18 at 10:51; Status DC Potassium Chloride/Dextrose/ Sod Cl 1,000 ml @ 75 mls/hr [id number] IV Last administered on 05/28/18at 05:34; Start 05/26/18 at 11:00; Stop 05/28/18 at 17: 11; Status DC Fentanyl Citrate (Fentanyl 2ml Vial) 50 mcg PRN Q2HR PRN IV SEVERE PAIN Last administered on 05/26/18at 22:34; Start 05/26/18 at 21:45; Stop 05/29/18 at 09: 42; Status DC Acetaminophen/ Hydrocodone Bitart (Lortab 5/325) 1 tab PRN Q4HRS PRN PO MILD- MODERATE PAIN; Start 05/28/18 at 10:30 Acetaminophen/ Hydrocodone Bitart (Lortab 5/325) 2 tab PRN Q4HRS PRN PO SEVERE PAIN; Start 05/28/18 at 10:30 Active Scripts Active Reported Atorvastatin Calcium 40 Mg Tablet 1 Tab PO DAILY Colace (Docusate Sodium) 100 Mg Capsule 100 Mg PO BID Flomax (Tamsulosin Hcl) 0.4 Mg Cap.er.24h 0.4 Mg PO DAILY Lisinopril 10 Mg Tablet 10 Mg PO DAILY Vitals/I & O Vital Sign - Last 24 Hours 05/28/18 05/28/18 05/28/18 05/28/18 16:00 16:00 18:20 20:00 Temp 99.7 98.1 99.7 98.1 Pulse 70 70 Resp 16 18 B/P (MAP) 142/83 (102) 141/78 (99) Pulse Ox 98 95 O2 Delivery Room Air Room Air Room Air 05/29/18 05/29/18 05/29/18 07:00 08:30 11:06 Temp 99.1 98.5 99.1 98.5 Pulse 72 71 Resp 16 16 B/P (MAP) 124/74 (91) 124/69 (87) Pulse Ox 95 96 O2 Delivery Room Air Room Air Room Air Intake and Output 05/28/18 05/28/18 05/29/18 15:00 23:00 07:00 Intake Total 200 ml 620 ml Output Total 550 ml 250 ml Balance -550 ml -50 ml 620 ml DONAL AUGUSTE APRN May 29, 2018 12:13
== END 2018-05-29 14:50 | DRG 25 ==
LOC: EEVIPCON 23:12 → ER 23:12 → 1 WEST ICU 05-26 → 4 NORTH 05-28 18:20
PROVIDERS: ADMIT Internal Medicine; ATTEND Internal Medicine
PROC: 0BH17EZ Insertion of Endotracheal Airway into Trachea, Via Natural or Artificial Opening (ICD-10-PCS; 2018-05-26)
PROC: 5A1945Z Respiratory Ventilation, 24-96 Consecutive Hours (ICD-10-PCS; 2018-05-26)
PROC: 00C40ZZ Extirpation of Matter from Intracranial Subdural Space, Open Approach (ICD-10-PCS; principal; 2018-05-26 01:30)
DX: S06.5X9A Traumatic subdural hemorrhage with loss of consciousness of unspecified duration, initial encounter (principal); J96.00 Acute respiratory failure, unspecified whether with hypoxia or hypercapnia; G93.40 Encephalopathy, unspecified; N40.0 Benign prostatic hyperplasia without lower urinary tract symptoms; I10 Essential (primary) hypertension; E78.5 Hyperlipidemia, unspecified; M19.90 Unspecified osteoarthritis, unspecified site; K59.00 Constipation, unspecified; G89.29 Other chronic pain; X58.XXXA Exposure to other specified factors, initial encounter; Y93.89 Activity, other specified; Z83.3 Family history of diabetes mellitus; Y92.89 Other specified places as the place of occurrence of the external cause; Y99.8 Other external cause status; F60.9 Personality disorder, unspecified
CPT/HCPCS: 31500; 36415; 36600; 51702; 70450; 71045; 72125; 80048; 80053; 80307; 81001; 82140; 82553; 82805; 82962; 83605; 83735; 84484; 85007; 85025; 85027; 85610; 85730; 87641; 88304; 93005; 94002; 94003; 96374; C1713; G0480; J0690; J1100; J2150; J2405; J2704; J3010; J3490; J7050; J7120; 97530; 99291-25; G0479; J7030

== ENCOUNTER → 2018-06-11 | Outpatient (CLI) | payer OTHER ==
[2018-05-29 11:06] VITALS: BP 124/69
[~2018-06-11] MED LIST changes: +ATOR40TA59 PO
--- NOTE | 2018-06-11 14:00 | KCIC ---
CT HEAD WO CONTRAST History: Subdural hematoma follow-up Comparison: 05/25/2018 Technique: Noncontrast CT imaging was performed of the head. Exposure: One or more of the following individualized dose reduction techniques were utilized for this examination: 1. Automated exposure control 2. Adjustment of the mA and/or kV according to patient size 3. Use of iterative reconstruction technique. Findings: Previously seen right lateral convexity subdural hematoma is smaller, minimal residual greater in the right frontal region about 0.6 cm in greatest thickness, previously more heterogeneous appearance up to 1.5 cm in thickness. There has been right frontal parietal craniotomy. No new intracranial hemorrhage is identified. Previously seen right to left midline shift has decreased, very minimal residual about 0.2 cm. Martinez-white differentiation of the major vascular territories is preserved. There are persistent air-fluid levels in the maxillary sinuses bilaterally although improved aeration, moderate to severe left and moderate right maxillary sinus mucosal thickening. There is severe ethmoid air cell mucosal thickening/opacification as seen previously, also mucosal thickening of the frontal sinuses greater on the right. There is opacification pterygoid aspects of the right sphenoid sinus, somewhat increased. Mastoid air cells are aerated. Impression: 1. Previously seen right subdural hematoma is smaller, decreased [id number] midline shift. 2. There is residual paranasal sinus mucosal thickening although decreased, some residual air-fluid levels in the bilateral maxillary sinuses. Electronically signed by: Alpesh Shi MD (06/11/2018 1:57 PM) [id number]
== END | disposition home or self-care (01) ==
LOC: EEVIPCON 09:00 → KCIC CT 12:12
DX: S06.5X0D Traumatic subdural hemorrhage without loss of consciousness, subsequent encounter (principal); X58.XXXD Exposure to other specified factors, subsequent encounter
CPT/HCPCS: 70450